=== PATIENT | male | born 1945 | race Caucasian/White ===

== ENCOUNTER 2020-12-30 09:35 | Outpatient (REF) | payer MEDICARE, SELFPAY ==
[2020-12-30 12:21] LABS: VALPROIC ACID 25.1 ug/mL (50-100)
[2020-12-30 12:29] LABS: TSH 0.04 uIU/mL (0.36-3.74)
== END 2020-12-30 09:36 | disposition home or self-care (01) ==
LOC: LBN 09:35
PROVIDERS: PCP Family Medicine; Visit Provider Family Medicine
DX: E03.9 Hypothyroidism, unspecified (principal); Z51.81 Encounter for therapeutic drug level monitoring
CPT/HCPCS: 80164; 84443

== ENCOUNTER 2022-10-27 15:17 | Inpatient (IN) | payer MEDICARE, SELFPAY ==
[2022-10-27] VITALS (45 sets, daily range): BP systolic 116–161; BP diastolic 64–99; PULSE 94–122; RESP 2–37; TEMP 36.6; O2SAT 88–95
--- NOTE | 2022-10-27 15:00 | RT.EKG_ITS ---
APPROVED REPORT Exam: Resting ECG Reason for Exam: stroke Patient Location: E HR:110 bpm ECG Measurements Heart Rate 110 AXIS GA 147 P 38 QRSd 109 QRS 24 QT 358 T -13 QTc 484 Conclusion Sinus tachycardia...rate> [address]-T changes
--- NOTE | 2022-10-27 15:11 | W.ED.GENAD ---
Discharge Plan Disposition Patient Disposition: Admit to [facility] Condition: Fair Discharge Details Clinical Impression: Acute right-sided weakness Primary Care Provider: Go Camacho ED Provider: Layton Westfall Medical Decision Making Patient presenting to ED with right sided weakness that apparently started yesterday and involved his leg with acute worsening approximately 1 hour prior to EMS activation with involvement of upper extremity as well. He has previous CVA but family does not know his medications. We did review all of the common anticoagulants and it does not sound like he is anticoagulated. Does apparently take an aspirin a day but not clear whether he took it today. Family reporting some increased trouble swallowing and a cough. He is awake and alert. He follows commands. He answers yes/no questions. He is mildly tachycardic otherwise good vitals. Given symptoms appear to have started yesterday though worse today I do not think he is a candidate for systemic tPA. Will obtain CT head and CTA head and neck to look for large vessel occlusion. Chest x-ray, EKG, laboratory studies, urine ordered. Patient remains unchanged. CT head without bleed. CTA head and neck without LVO. Able to speak with daughter who reports that she definitely noticed changes yesterday which progressed today. Patient not a candidate for any type of systemic thrombolysis due to timing. Laboratory studies with mild leukocytosis and mild anemia. Magnesium is low and will be replaced. Creatinine a little high but there is no baseline for comparison here. Urinalysis without evidence of infection. EKG is sinus rhythm without acute ST changes noted. Chest x-ray poor inspiratory effort with increased markings but no definite infiltrate. Does sound like patient has suffered another stroke given his right-sided weakness. Also sounds like he may have some swallowing problems at this point. We will keep him n.p.o. Will give aspirin rectally. Discussed with daughter. Discussed with hospitalist regarding admission. Patient to be full code and is admitted for further evaluation and management of presumed stroke. Lab Data Lab results reviewed: Yes I reviewed the patient's lab results. ECG Data Attestation: I personally reviewed and interpreted this ECG (s) as follows: Prior ECG tracings: not available for review Interpretation: see EKG HPI General Mode of arrival: EMS. Date/Time Provider Initiated Documentation: 10/27/22 16:09. Limitations to Documentation: other (Aphasia). Information obtained by: family and EMS. HPI Narrative: Patient presents to ED by ambulance with onset of right-sided weakness. Patient has previous CVA with residual aphasia and mild right lower extremity weakness. He is new to this area just moving up from [place] to live with family and has only been here for a week. Family not really sure what medications he is on. They noted that yesterday he seemed to be dragging his right leg way more so than usual. Today, 1 hour prior to calling EMS they noted facial droop and right upper extremity weakness. Patient is not really able to speak but can answer yes or no. He seems reliable as he does follow commands. He is not having pain. Family reports some increased cough and difficulty swallowing over the last couple of days. He has had no fever. Review of Systems Narrative: per HPI PFSH All Active Problems (Updated 10/27/22 @ 17:20 by Layton Westfall MD) Acute right-sided weakness (Acute) Medical History (Updated 10/27/22 @ 17:20 by Layton Westfall MD) CVA (cerebral vascular accident) Social History Smoking/Tobacco Use Status: Former Tobacco Use Smoking risk assessment performed?: Yes Do you feel safe at home: Yes Do you feel safe in your relationship?: Yes Exam Narrative Exam Narrative: Const: WDWN elderly male in NAD. HEENT: NC/AT. Normal facial exam. Eyes: PERRL and EOMI Neck: Supple. Trachea midline. Lungs: Normal respiratory effort. Lungs are clear. Cor: RRR with murmur. Good radial pulses. GI: Soft. NT/ND. Neuro: Alert, follows commands. Answers only yes/no. Cranial nerves II - XII grossly intact w mild right facial droop. R sided weakness present; both arm and leg drop but do not hit bed. Sensory in tact. Ext: No C/C. BLE edema present. Skin: Warm and dry.
--- NOTE | 2022-10-27 15:15 | DI.CT_ITS ---
Exam(s) CT BRAIN NECK CTA EXAM: CT BRAIN NECK CTA CLINICAL HISTORY: right side deficits. TECHNIQUE: Imaging Protocol: Axial CT angiography was performed with multi-slice acquisition and mu lti-planar and/or 3D reconstructions. CONTRAST MATERIAL: Intravenous: Omnipaque 350 Contrast volume:structured data in ml COMPARISON: No exams were available for comparison FINDINGS: CTA Neck W: Aortic arch anatomy: The aortic arch anatomy is conventional and there is no significant stenosis at the origin of the great vessels off of the aortic arch. No intimal flap evident. Anterior circulation: There is no significant stenosis at the origin of the common carotid arteries. There is eccentric pa rtially calcified plaque on the medial wall of the mid left common carotid artery. The right common carotid artery is somewhat tortuous but without mural thrombus. At the level of the left carotid bulb there is plaque at and distal to this level within the proximal left ICA in the neck. There is approximately 40 percent stenosis at this level. The left ICA above this level in the neck is patent. At the right carotid bulb there is approximately 10 percent steno sis with 15-20 percent stenosis due to calcified mural plaque in the proximal right ICA in the neck. No critical stenosis on either side. Posterior circulation: The left vertebral artery originates as an independent vessel off the aortic arch. Right vertebral a rtery originates in conventional fashion off of the right subclavian artery. No obvious stenosis at their origins. In the foramen transverse area both vertebral arteries are patent with approximately equal luminal diameters and no evidence of intraluminal thrombus nor dissection. At the skull base b oth vertebral arteries contribute to the formation of the midline basilar artery. CTA Brain W: Anterior circulation: Both internal carotid arteries are patent in the skull base-carotid canals as well as within the cave rnous sinuses. The supraclinoid aspects of the ICAs are patent. Left A1 segment is patent. Right A1 segment appear s stenotic. Both anterior cerebral arteries are patent. Both middle cerebral arteries are patent with no evidence of significant stenosis nor intraluminal th rombus. There also no aneurysms of these vessels. Posterior circulation: The basilar artery ascends in the midline. Distally it gives off patent bilateral superior cerebella r arteries. Above this level the basilar artery terminates as patent left posterior cerebral artery. Right poste rior cerebral artery is fed by posterior communicating artery on the right side of the [id number] is There is no evidence of aneurysm at the tip of the basilar artery. CT BRAIN: There is no evidence of intracranial hemorrhage, mass effect, or shift of midline structures. There are no extra-axial fluid collections. Ventricles are not enlarged or shifted. There are no ring enh ancing lesions in the brain and no abnormal meningeal enhancement. There is abundant bilateral periventricular hypodensity consistent with chronic small vessel disease and there are multiple age indeterminate lacunar infarcts bilaterally, more prominent on the left jacquelyn e. Some of these are older than others. Largest of these on the left side measures approximately 9 x 7 millimeters. IMPRESSION: 1. Some stenotic disease at the carotid bifurcations and proximal internal carotid arteries in the ne ck, left more so than right but appearing to be less than 40 percent stenosis bilaterally. 2. Patent vertebral arteries. 3. Patent intracranial arteries. 4. Bilateral periventricular hypodensity consistent with chronic small vessel disease and there are a lso numerous lacunar infarcts in the periventricular white matter, prominent on the left side. Recom mend follow-up MRI with diffusion imaging. Study 1st read by [facility]. RADIATION DOSE DELIVERED: 2,150.04mGy.cm Total DLP DATA REPOSITORY: All CT scans at this facility are submitted to the National Radiology Data Registry (NRDR) Dose Index Registry (DIR) with the [employer] (ACR). RADIATION OPTIMIZATION: All CT scans at this facility use at least one of these dose optimization te chniques: automated exposure control; mA and/or kV adjustment per patient size (includes targeted exa ms where dose is matched to clinical indication); or iterative reconstruction.
--- NOTE | 2022-10-27 15:15 | DI.RAD_ITS ---
Exam(s) XR CHEST 1V IN DI DEPT EXAM: XR CHEST 1V IN DI DEPT CLINICAL HISTORY: stroke. TECHNIQUE: 2D digital imaging was performed. COMPARISON: No exams were available for comparison FINDINGS: Single AP portable view. Heart size upper normal. Mediastinum not widened. Increased markings are noted throughout both lung webb but there is a suboptimal inspiratory effort here. Recommend additional imaging with nonportable PA and lateral views when clinically possible a nd with better inspiratory effort. IMPRESSION: As above. Recommend additional imaging. DATA REPOSITORY: RADIATION DOSE DELIVERED:
[2022-10-27 15:35] LABS: Abs Immature Grans 0.03 10^3/uL (0.0-0.06); Absolute Eosinophil Count 0.43 10^3/uL (0.0-0.7); Absolute Lymphocyte Count 1.25 10^3/uL (1.2-3.4); Absolute Monocyte Count 0.49 10^3/uL (0.1-0.8); Basophils % 0.2; Eosinophils % 3.5; HCT 40.1 % (40.0-50.0); HGB 12.8 g/dL (13.5-17.5); Immature Grans % 0.2; Lymphocytes % 10.3; MCHC 31.9 % (32.0-36.0); MCV 88 fL (80-95); Neutrophils % 81.8; Platelet Count 229 10^3/uL (130-400); RBC 4.57 10^6/uL (4.36-5.78); RDW 14.5 % (11.8-14.1); RDW-SD 46.2 fL; WBC 12.16 10^3/uL (4.4-10.8)
[2022-10-27 15:42] LABS: Absolute Basophil Count 0.02 10^3/uL (0.0-0.2); Absolute Neutrophil Count 9.95 10^3/uL (1.2-6.7)
[2022-10-27] MEDS: Omnipaque 350 MG/ML 100 ML BTL IJ (15:48)
[2022-10-27] MEDS: Normal Saline - Diluent 50 ML VIAL IJ (15:49)
[2022-10-27 15:51] LABS: ALT 22 U/L (16-63); AST 20 U/L (15-37); Albumin 3.7 g/dL (3.4-5.0); Alkaline Phosphatase 110 U/L (46-116); Anion Gap 9.2 mmol/L (3-11); BUN 16 mg/dL (7-18); Bilirubin, Total 0.5 mg/dL (0.2-1.0); CO2 27.8 mmol/L (21.0-32.0); CREATININE 1.4 mg/dL (0.70-1.30); Calcium 9.2 mg/dL (8.5-10.1); Chloride 102 mmol/L (98-107); Estimated GFR 52.09 (mL/min/1.73m2); Glucose 149 mg/dL (74-106); Magnesium 1.3 mg/dL (1.8-2.4); Potassium 3.2 mmol/L (3.5-5.1); Sodium 139 mmol/L (136-145); Total Protein 8.3 g/dL (6.4-8.2); Troponin I < 50 ng/L (<or=60)
[2022-10-27 15:59] LABS: INR 1.1 (0.9-1.1); Prothrombin Time 10.7 sec (9.3-11.0)
--- NOTE | 2022-10-27 16:04 | DI.VRAD_ITS ---
PROCEDURE INFORMATION: Exam: XR Chest Exam date and time: 10/27/2022 3:47 PM Age: 77 years old Clinical indication: Other: Stroke symptoms TECHNIQUE: Imaging protocol: Radiologic exam of the chest. Views: 1 view. COMPARISON: CT BRAIN NECK CTA 10/27/2022 3:28 PM FINDINGS: Lungs: Mild opacities in the bases may represent atelectasis or pneumonia.. Pleural spaces: Unremarkable. No pleural effusion. No pneumothorax. Heart/Mediastinum: Unremarkable. No cardiomegaly. Bones/joints: Unremarkable. IMPRESSION: Mild opacities in the bases may represent atelectasis or pneumonia.. Dictated and Authenticated by: David Main MD. Ordering:VARGHESE Traylor MD
[2022-10-27] MEDS: MAGNESIUM SULFATE 2 GM/50 ML BAG IVPB ×2 (16:18→20:33)
[2022-10-27] MEDS: Normal Saline 1,000 ML 125 ML IV (16:18)
[2022-10-27 16:20] LABS: Bilirubin Negative (Negative); Blood Trace-intact (Negative); Clarity Clear (Clear); Glucose Negative (Negative); Ketones Negative (Negative); Leukocyte Esterase Negative (Negative); Nitrite Negative (Negative); Specific Gravity 1.015 (1.005-1.025); Urobilinogen 0.2 EU/dL (Up TO 0.2)
[2022-10-27 16:28] LABS: Bacteria Rare HPF (Negative); Crystals Negative HPF (Negative); Epithelial Cells Rare HPF (Negative); Mucus Moderate (Negative)
[2022-10-27 16:29] LABS: C & S Indicated? No
--- NOTE | 2022-10-27 16:45 | DI.VRAD_ITS ---
PROCEDURE INFORMATION: Exam: CT Head Without Contrast Exam date and time: 10/27/2022 3:28 PM Age: 77 years old Clinical indication: Stroke symptoms TECHNIQUE: Imaging protocol: Computed tomography of the head without contrast. COMPARISON: No relevant prior studies available. FINDINGS: Brain: There is no acute intracranial hemorrhage, mass effect or midline shift. No large acute territorial infarct identified. There are patchy regions of hypodensity in the periventricular and subcortical white matter, likely on the basis of chronic microvascular ischemic disease. There are small hypodensities in the left basal ganglia and left thalamus, suggestive of remote lacunar infarcts. Cerebral ventricles: The ventricles and sulci are prominent in size, which is at least in part due to global cerebral volume loss. Paranasal sinuses: There is mucosal thickening in the left ethmoid and left maxillary sinuses. Mastoid air cells: Visualized mastoid air cells are well aerated. Bones/joints: No acute fracture. Soft tissues: Unremarkable. IMPRESSION: 1. No acute intracranial hemorrhage, mass effect or midline shift. 2. Evidence of old infarcts. PROCEDURE INFORMATION: Exam: CTA Head With Contrast, Arteriography Exam date and time: 10/27/2022 3:28 PM Age: 77 years old Clinical indication: Stroke symptoms TECHNIQUE: Imaging protocol: Computed tomographic angiography of the head with contrast. Exam focused on the arteries. 3D rendering (Not supervised by radiologist): MIP and/or 3D reconstructed images were created by the technologist. Radiation optimization: All CT scans at this facility use at least one of these dose optimization techniques: automated exposure control; mA and/or kV adjustment per patient size (includes targeted exams where dose is matched to clinical indication); or iterative reconstruction. Contrast material: OMNIPAQUE 350; Contrast volume: 85 ml; Contrast route: INTRAVENOUS (IV); COMPARISON: No relevant prior studies available. FINDINGS: ANTERIOR CIRCULATION: Right internal carotid artery: The right internal carotid artery shows no evidence of occlusion or significant stenosis. No aneurysm. Right middle cerebral artery: No occlusion or significant stenosis in the right MCA. No aneurysm. Right anterior cerebral artery: No occlusion or significant stenosis in the right MICHELLE. No aneurysm. Left internal carotid artery: There is a persistent origin of the right [employer].The left internal carotid artery shows no evidence of occlusion or significant stenosis. No aneurysm. Left middle cerebral artery: No occlusion or significant stenosis. No aneurysm. Left anterior cerebral artery: No occlusion or significant stenosis in the left MICHELLE. No aneurysm. POSTERIOR CIRCULATION: Right vertebral artery: No occlusion or significant stenosis in the right vertebral artery. No aneurysm. Left vertebral artery: No occlusion or significant stenosis in the left vertebral artery. No aneurysm. Basilar artery: The basilar artery shows no evidence of occlusion or significant stenosis. No aneurysm. Right posterior cerebral artery: No occlusion or significant stenosis in the right [employer]ER. No aneurysm. Left posterior cerebral artery: No occlusion or significant stenosis in the left [employer]ER. No aneurysm. IMPRESSION: No large vessel occlusion or significant stenosis. PROCEDURE INFORMATION: Exam: CTA Neck With Contrast Exam date and time: 10/27/2022 3:28 PM Age: 77 years old Clinical indication: Stroke symptoms TECHNIQUE: Imaging protocol: Computed tomographic angiography of the neck with contrast. 3D rendering (Not supervised by radiologist): MIP and/or 3D reconstructed images were created by the technologist. Radiation optimization: All CT scans at this facility use at least one of these dose optimization techniques: automated exposure control; mA and/or kV adjustment per patient size (includes targeted exams where dose is matched to clinical indication); or iterative reconstruction. Contrast material: OMNIPAQUE 350; Contrast volume: 85 ml; Contrast route: INTRAVENOUS (IV); COMPARISON: No relevant prior studies available. FINDINGS: Limitations: Motion artifact does moderately limit the sensitivity of this examination. Right common carotid artery: No significant stenosis in the right CCA. No dissection or occlusion. Right internal carotid artery: No stenosis of the extracranial segment. No dissection or occlusion. Right external carotid artery: No occlusion or stenosis of the origin in the right ECA. Left common carotid artery: No significant stenosis in the left CCA. No dissection or occlusion. Left internal carotid artery: No stenosis of the extracranial segment. No dissection or occlusion. Left external carotid artery: No occlusion or stenosis of the origin in the left ECA. Right vertebral artery: No stenosis. No dissection or occlusion. Left vertebral artery: Left vertebral artery originates from the aortic arch. No significant stenosis in the left vertebral artery. No dissection or occlusion. Soft tissues: Normal. No significant soft tissue swelling. Bones/joints: No acute fracture. Lungs: Mild centrilobular emphysema noted in the lung apices. IMPRESSION: 1. No arterial occlusion or dissection. 2. Slightly limited examination of the carotid bifurcations due to motion, however no evidence of hemodynamically significant stenosis. REFERENCES: NASCET CRITERIA. The degree of stenosis in the cervical segment of the internal carotid artery is based on NASCET criteria. Normal is no stenosis. Mild is less than 50% stenosis. Moderate is 50-69% stenosis. Severe is 70% to 99% stenosis. Total occlusion is no detectable patent lumen. Dictated and Authenticated by: Peri Ritter MD. Ordering:VARGHESE Traylor MD
[2022-10-27] MEDS: Aspirin 300 MG SUPP PR (17:21)
--- NOTE | 2022-10-27 17:22 | HPE_ITS ---
Date of service: 10/27/22 Time of Service: 17:22 Assessment and Plan Assessment and plan (1) Acute right-sided weakness: Status: Acute Assessment and plan: ? acute CVA. Could also be worsening of chronic neuro deficits due to electrolyte issues (low magnesium and potassium). Will monitor on tele with neurochecks, obtain echo, MRI brain, neurology consult. PT, OT consults. Permissive hypotension. Check A1C, TSH, B12, lipids. Treat with rectal aspirin for now. (2) Hypokalemia: Status: Acute Assessment and plan: Replete, recheck in am. Replete magnesium. (3) Hypomagnesemia: Status: Acute Assessment and plan: Replete, recheck in am. (4) Dysphagia: Status: Acute Assessment and plan: Will trial pureed/mildly thickened diet. C/s speech therapy. I think he does have aspiration pneumonia clinically, so will start zosyn and scheduled and prn nebs. (5) DVT prophylaxis: Status: Acute Assessment and plan: SC enoxaparin (6) Discharge planning issues: Status: Acute Assessment and plan: Full code Admit to medical surgical floor History of Present Illness History of Present Illness Chief Complaint: Worsened right-sided weakness Narrative: Mr Cam is a 77 year old male with poorly known PMHx other than that he had a stroke with residual aphasia and R leg weakness (able to answer yes/no at baseline) who presented to [facility] after being noted to be weaker on the R and not to be using his RUE yesterday by his daughter, who felt he was worse today. Additionally, it was felt he had more trouble swallowing since yesterday. In the ED, he was indeed weaker on the R. His CT/CTA head/neck were negative for an acute CVA/occlusion. Admission to the hospitalist service was requested. On the interview with the patient, he states he has had worsening R-sided weakness and shortness of breath for x 1 month. He denies pain anywhere. The interview is very limited due to the patient's aphasia. Review of Systems All systems reviewed & are unremarkable except as noted in HPI and below PFSH All Active Problems (Updated 10/27/22 @ 18:46 by Kelsi Mondragon MD) Discharge planning issues (Acute) DVT prophylaxis (Acute) Dysphagia (Acute) Hypomagnesemia (Acute) Hypokalemia (Acute) Acute right-sided weakness (Acute) Medical History (Updated 10/27/22 @ 18:46 by Kelsi Mondragon MD) CVA (cerebral vascular accident) Surgical History (Updated 10/27/22 @ 18:46 by Kelsi Mondragon MD) Surgical history unknown Family History (Updated 10/27/22 @ 18:46 by Kelsi Mondragon MD) Other Family history unobtainable due to patient's condition Social History (Updated 10/27/22 @ 18:47 by Kelsi Mondragon MD) Smoking/Tobacco Use Status: Former Tobacco Use Smoking risk assessment performed?: Yes Alcohol Intake: never Drug use: Never Do you feel safe at home: Yes Do you feel safe in your relationship?: Yes Meds Allergies and Home Medications Allergies Allergy/AdvReac Type Severity Reaction Status Date / Time No Known Allergies Allergy Unverified 10/27/22 18:06 Exam Narrative Exam Narrative: General: Pleasant elderly male who is sitting up in a stretcher, A&Ox2 (knows he is in the hospital, thinks he is in the ICU while he is still in the ER), audible wheezing heard. Neurological: A&Ox2, EOMI, visible R facial droop disappears when he smiles, 5/5 strength LUE/LLE, though difficulty with understanding commands, RUE/RLE 4/5 strength (requires a lot of coaching to elevate his RUE which he appears to not use at all unless specifically being asked to use it), sensation seems to be preserved. Speech nonfluent, mostly 1 word answers - yes, no, ICU. Does laugh at a joke appropriately. Seems to be understanding my questions, but difficulty f ollowing more than 1-step commands and commands pertaining to the R side of the body. Psychiatric: Difficult to evaluate given aphasia Skin: petechial rash L ankle, otherwise no bruises/rashes HEENT: Atraumatic, normocephalic, EOMI, dry MM, clear oropharynx, no submandibular or cervical lymphadenopathy, no goiter or JVD Cardiovascular: RRR, no m/r/g Lungs: wheezing on expiration B, crackles at L base Gastrointestinal: soft, nontender, nondistended Genitourinary: deferred Extremities: no edema BLEs, 1+ pedal pulses B, no lesions on B feet Results Imaging Additional studies: CXR: Heart size upper normal.? Mediastinum not widened. Increased markings are noted throughout both lung webb but there is a suboptimal inspiratory effort here.? Recommend additional imaging with nonpo rtable PA and lateral views when clinically possible and with better inspiratory effort. CT head: 1. No acute intracranial hemorrhage, mass effect or midline shift. 2. Evidence of old infarcts. CTA head: No large vessel occlusion or significant stenosis. CTA neck: 1. No arterial occlusion or dissection. 2. Slightly limited examination of the carotid bifurcations due to motion, however no evidence of hemodynamically significant stenosis. EKG: ST, HR 110, no acut eischemia, nonspecific ST-T changes Labs 10/27/22 15:25 10/27/22 15:25 Labs: Laboratory Results - last 24 hr 10/27/22 10/27/22 10/27/22 15:25 15:25 15:25 WBC 12.16 H RBC 4.57 Hgb 12.8 L Hct 40.1 MCV 88 MCH 28.0 MCHC 31.9 L RDW 14.5 H Plt Count 229 MPV 10.0 Immature Gran % 0.2 Neutrophils % 81.8 Lymphocytes % 10.3 Monocytes % 4.0 Eosinophils % 3.5 Basophils % 0.2 Nucleated RBC % 0.0 Absolute Neutrophils 9.95 H Absolute Lymphocytes 1.25 Absolute Monocytes 0.49 Absolute Eosinophils 0.43 Absolute Basophils 0.02 PT 10.7 INR 1.1 Sodium 139 Potassium 3.2 L Chloride 102 Carbon Dioxide 27.8 Anion Gap 9.2 BUN 16 Creatinine 1.4 H Est GFR (CKD-EPI 2020) 52.09 Glucose 149 H Calcium 9.2 Magnesium 1.3 L Total Bilirubin 0.5 AST 20 ALT 22 Alkaline Phosphatase 110 Troponin I < 50 Total Protein 8.3 H Albumin 3.7 Urine Color Urine Clarity Urine pH Ur Specific [place] Urine Protein Urine Ketones Urine Blood Urine Nitrite Urine Bilirubin Urine Urobilinogen Ur Leukocyte Esterase Urine RBC Urine WBC Ur Epithelial Cells Urine Crystals Urine Bacteria Urine Mucus Ur Culture Indicated? Urine Glucose 10/27/22 16:00 WBC RBC Hgb Hct MCV MCH MCHC RDW Plt Count MPV Immature Gran % Neutrophils % Lymphocytes % Monocytes % Eosinophils % Basophils % Nucleated RBC % Absolute Neutrophils Absolute Lymphocytes Absolute Monocytes Absolute Eosinophils Absolute Basophils PT INR Sodium Potassium Chloride Carbon Dioxide Anion Gap BUN Creatinine Est GFR (CKD-EPI 2020) Glucose Calcium Magnesium Total Bilirubin AST ALT Alkaline Phosphatase Troponin I Total Protein Albumin Urine Color Yellow Urine Clarity Clear Urine pH 7.0 Ur Specific [place] 1.015 Urine Protein Negative Urine Ketones Negative Urine Blood Trace-intact H Urine Nitrite Negative Urine Bilirubin Negative Urine Urobilinogen 0.2 Ur Leukocyte Esterase Negative Urine RBC 3-5 H Urine WBC 3-5 Ur Epithelial Cells Rare Urine Crystals Negative Urine Bacteria Rare Urine Mucus Moderate Ur Culture Indicated? No Urine Glucose Negative Last Vital Signs Temp 36.6 C 10/27/22 15:12 Pulse 101 H 10/27/22 17:01 Resp 22 10/27/22 17:01 BP 150/83 H 10/27/22 17:01 Pulse Ox 94 10/27/22 15:12 Time Spent Time spent with Patient: 55-74 minutes Time was spent: preparing to see the patient(eg.review tests), obtaining and/or reviewing separately otained hiistory, ordering medications,tests, procedures, referring, communicating with other health senior care specialist, indepentently in terpreting results, counseling the patient and care coordination
[2022-10-27 17:37] LABS: Source Nasal/Nares
[2022-10-27 17:43] LABS: Lab Add On Test DONE
[2022-10-27 18:08] LABS: TSH (W/Ref FT4) 5.64 uIU/mL (0.36-3.74)
[2022-10-27 18:09] LABS: COVID-19 PCR Negative (Negative)
[2022-10-27 18:21] LABS: Procalcitonin 0.1 ng/mL
[2022-10-27 18:25] LABS: FREE T4 0.93 ng/dL (0.76-1.46)
[2022-10-27] MEDS: Albuterol/Ipratropium 3 ML UPD VIAL (19:43)
[2022-10-27] MEDS: POTASSIUM CHLORIDE 20 MEQ/100 ML BAG 50 MEQ IVPB ×2 (20:32→22:36)
[2022-10-27] MEDS: Enoxaparin 40 MG/0.4 ML SYR SC (21:07)
[2022-10-27] MEDS: PIPERACILLIN/TAZO 3.375 GM in Normal Saline 50 ML IVPB (22:55)
[2022-10-28] VITALS (39 sets, daily range): BP systolic 105–165; BP diastolic 55–98; PULSE 64–105; RESP 2–30; TEMP 36.4–37.1; O2SAT 88–97
[2022-10-28] MEDS: PIPERACILLIN/TAZO 3.375 GM in Normal Saline 50 ML IVPB ×4 (02:38→21:50)
[2022-10-28 05:40] LABS: Abs Immature Grans 0.02 10^3/uL (0.0-0.06); Absolute Basophil Count 0.03 10^3/uL (0.0-0.2); Absolute Eosinophil Count 0.58 10^3/uL (0.0-0.7); Absolute Lymphocyte Count 1.27 10^3/uL (1.2-3.4); Absolute Monocyte Count 0.55 10^3/uL (0.1-0.8); Basophils % 0.3; Eosinophils % 5.9; HCT 36.4 % (40.0-50.0); HGB 12.2 g/dL (13.5-17.5); Immature Grans % 0.2; Lymphocytes % 12.9; MCHC 33.5 % (32.0-36.0); MCV 87 fL (80-95); MPV 10.2 fL (8.0-11.0); Monocytes % 5.6; Neutrophils % 75.1; Platelet Count 208 10^3/uL (130-400); RDW 14.5 % (11.8-14.1); RDW-SD 46.3 fL; WBC 9.85 10^3/uL (4.4-10.8)
[2022-10-28 05:56] LABS: Anion Gap 9.5 mmol/L (3-11); BUN 17 mg/dL (7-18); CO2 25.5 mmol/L (21.0-32.0); CREATININE 1.3 mg/dL (0.70-1.30); Calcium 9.2 mg/dL (8.5-10.1); Chloride 106 mmol/L (98-107); Estimated GFR 56.93 (mL/min/1.73m2); Glucose 123 mg/dL (74-106); Magnesium 2.2 mg/dL (1.8-2.4); Potassium 3.8 mmol/L (3.5-5.1); Sodium 141 mmol/L (136-145)
[2022-10-28 05:59] LABS: Hemoglobin A1C 5.8 % (<5.7)
--- NOTE | 2022-10-28 06:48 | NUR.NOTE ---
Nursing Note: Patient noted to have scratches all over his back, bilateral lower extremities from scratches. Per nursing report received @ 2330 on 10/27/2022 his family members reported that they trimmed his finger nails due to scratching. Family is not aware of patients medications. Patient frequently pulling at scrotal sack, verbalizes itches
[2022-10-28] MEDS: Aspirin 300 MG SUPP PR (07:37)
[2022-10-28] MEDS: Albuterol/Ipratropium 3 ML UPD VIAL UPD ×4 (07:53→21:51)
[2022-10-28 08:27] LABS: Calculated LDL 90 mg/dL (<100); Cholesterol 176 mg/dL (<200); HDL Cholesterol 72 mg/dL (40-60); Triglyceride 71 mg/dL (<150); Vitamin B12 405 pg/mL (193-986)
--- NOTE | 2022-10-28 09:02 | INITIAL_ITS ---
- If Service Date Differs Date of service: 10/28/22 Time of Service: 09:02 Care Management Initial Assess REASON FOR HOSPITALIZATION:: ?acute CVA with right sided weakness PAST MEDICAL HISTORY/PAST SURGICAL HISTORY:: All Active Problems (Updated 10/27/22 @ 18:46 by Kelsi Mondragon MD). Discharge planning issues (Acute). DVT prophylaxis (Acute). Dysphagia (Acute). Hypomagnesemia (Acute). Hypokalemia (Acute). Acute right-sided weakness (Acute). Medical History (Updated 10/27/22 @ 18:46 by Kelsi Mondragon MD). CVA (cerebral vascular accident). Surgical History (Updated 10/27/22 @ 18:46 by Kelsi Mondragon MD). Surgical history unknown. Family History (Updated 10/27/22 @ 18:46 by Kelsi Mondragon MD). Other. Family history unobtainable due to patient's condition PREVIOUS FUNCTIONAL STATUS/SOCIAL/FAMILY SUPPORTS:: Layton lives in [place], [place] in a mobile home with his daughter Sujatha Jeffers. He recently moved from [place], [place] where he was living with his son Víctor. Jimi suffered a stroke at some time in the past which has left him with residual right sided weakness. He requires assistance with all ADLs, however he can feed himself. Per daughter, Jimi was able to walk short distances a couple of weeks ago and was able to use his right arm more. CURRENT FUNCTIONAL STATUS:: Jimi was sitting up in bed in the ICU when CM met with him. He was alert and able to engage in conversation. Jimi has some difficulties with speech but is able to say yes and no and respond with one or 2 word answers to questions. When asked if he would be willing to go to a SNF for short term rehab if recommended, he indicated that he would. MARCIANO also had a lengthy conversation with his daughter Sujatha Jeffers. Jimi came to live with her 5 days ago from her brother's home in [place]. He called her and stated that he could n o longer care for Jimi. She indicated that her brother has a substance use issue with alcohol and that he was not taking good care of Jimi. She does not have a lot of details about Jimi's medical history but he does have a PCP in [place] that has been involved in his care. CM will attempt to get records from the office on Saturday. ADVANCE DIRECTIVES:: none on file Has patient been provided with info about the portal/API?: Yes Did the patient sign up for the portal?: No CODE STATUS:: Full Code INSURANCE COVERAGE / FINANCIAL ISSUES:: Medicare CURRENT HOME/COMMUNITY SERVICES/EQUIPMENT:: wheelchair, walker PRIMARY CARE PHYSICIAN:: oG Camacho MD - [facility] PATIENT/FAMILY EDUCATION NEEDS:: Review of discharge instructions, limitations, activity, follow up plan, Ask Me Three TRANSPORTATION:: via private vehicle with family PLAN:: Anticipate Layton will be discharged home, possibly with new home health services. he will follow up with community providers and plan of care and transport with his daughter.
--- NOTE | 2022-10-28 10:16 | IN_ITS ---
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 Additionally, it was felt he had more trouble swallowing since yesterday. [] Obtaining history is limited as Layton has aphasia and is difficult to understand. He does seem to be able to express more with Pt than he has thus far but difficult to understand fully what his baseline is. PMHX: []All Active Problems (Updated 10/27/22 @ 18:46 by Kelsi Mondragon MD).? Discharge planning issues (Acute).? DVT prophylaxis (Acute).? Dysphagia (Acute).? Hypomagnesemia (Acute).? Hypokalemia (Acute).? Acute right-sided weakness (Acute).? Medical History (Updated 10/27/22 @ 18:46 by Kelsi Mondragon MD).? CVA (cerebral vascular accident).? Surgical History (Updated 10/27/22 @ 18:46 by Kelsi Mondragon MD).? Surgical history unknown.? Family History (Updated 10/27/22 @ 18:46 by Kelsi Mondragon MD).? Other.? Family history unobtainable due to patient's condition Social History/Home Situation: Lives in [place], states his daughter helps with bathing, he states he does limited walking with a cane however it was reported thru a ICU nurse per his daughter that he really doesn't walk. I am unable to asertain his baseline level, although he does state that he is able to stand and get into his bathroom at home, likely with use of a cane. Current Functional Limitations: Unclear history of baseline status as outlined above Equipment Owned/DME: Unclear, ? cane not sure if gladys or not Subjective: Primarily answers yes or no, is able to express that he is retired, that his daughter assists with bathing, he states that he is able to ambulate to bathroom at home utilizing a cane. He states that he does not have any pain today. Objective: General Observation: Patient is supine in ICU bed and willing to try sitting and standing when asked and follows directions for MMT and ROM. Per Rn seeing how he does on RA Mental Status: Patient has dysarthria/aphasia thus difficult to assess orientation it does appear that he is trying to answer questions I have been told that he answers just yes or no however he has been able to give me some information I am unable to confirm the accuracy of this information. He is alert and cooperative and able to follow basic directions Pain: 0/10 Vital Signs: Pretreatment heart rate 74 O2 92 RR 24 BP 114/98 During treatment O2 elevated to 96, and then dropped to 86 however once able to rest returned to 92 all at RA posttreatment HR 68 O2 92 RR 19 ROM: Right Upper Extremity: Increased tone, very limited AROM of shoulder PROM to 60 degrees elevation, -20 elbow extension, limited wrist extension and finger extension he does have increased energy when working hard during transfers although we are able to open his hand passively he does tend to keep it flexed. Left Upper Extremity: W FL Right Lower Extremity: In supine has 0 degrees extension but in sitting unable to fully straighten right LE -30. Hip flexion 90, hip extension -10 Left Lower Extremity: WFL Strength: Right Upper Extremity: Difficulty with volitional right UE resistance with verbal cueing able to provide fair resistance elbow extension elbow flexion sh oulder flexion at 30 degrees in shoulder abduction at 30 degrees. Left Upper Extremity: WFL Right Lower Extremity: To MMT isometric positioning hip flexion 3/5, extension 3/5, hamstring curl 3/5, knee extension 3/5 however unable to extend fully in long arc quad positioning question ability to communicate and ability to activate right LE volitionally. DF 1/5 Left Lower Extremity: WFL Sensation: Unable to report Bed Mobility/Transfers: Supine to sit min assist sit to supine mod assist with right LE Sit to stand bed to RW min assist, VC for hand placement Stand to sit RW to bed min assist Repositioning in bed max assist but patient attempting to help with left LE, did not assess rolling left and right Gait: Not assessed Balance: Static Sitting: Good Dynamic Sitting: Fair, supports with left UE Static Standing: At RW good utilizing primarily left UE and able to stand for approximately 4 minutes Dynamic Standing: Poor and not stand without assist assess Special Tests: Mobility Limitations Standardized Measure [facility] AM-PAC 6 clicks Basic Mobility Inpatient Short Form: Raw Score: 10 standardized Score: 32.29 CMS Score: 76.75 Informed Consent/Education: Patient instructed in purpose of PT consult and plan of care. Assessment: Patient is a 77year old male referred to physical therapy services with the diagnosis of suspect acute CVA with right-sided weakness. Patient presents with clinical signs and symptoms consistent with right upper extremity greater than right LE with increased tone consistent with CVA, as demonstrated by the following impairment level findings: Decreased ROM right UE, right LE, increased tone flexion synergy right UE, weakness right UE and LE, dysphagia/aphasia. Impairments are contributing to the following functional [place] itations: 76.75AMPAC score. Poor bed mobility Limited with transfers Limited ambulation Unable to perform ADLs Patient is assessed as a Moderate change complexity based on the following: Goals: Goals X1 week 1. Supine-Sit independent 2. Sit-Supine independent 3. Sit-Stand close guard 4. Stand-Sit close guard 5. Bed-Chair min assist 6. Chair-Bed min assist 7. Gait with RW to be assessed 8. Stairs n/a 9. Independent with home exercise program n/a 10. Balance able to stand without assist patient also to receive OT and speech evaluation. DC Plan of Care/Treatment Plan: 1-2x/day, 7 days/week x 1 week. Plan of care has been reviewed with the ROPE LAYING MACHINE OPERATOR providing the service under Physical Therapy direction. Initiate Physical Therapy intervention for strengthening, bed mobility, transfers, gait, stairs, balance training, use of assistive device. DISCHARGE RECOMMENDATIONS: [] Home with no services [] [] Home with services [specify] [] Home with outpatient PT [] [x] SNF for continued rehabilitation [] Medical Services Manager Care [] [] SNF versus LTC based on ability to participate and progress [] TREATMENT CODE/TIME: [id number] 25'
--- NOTE | 2022-10-28 10:48 | RESPIRATORY ---
Rt spoke with family and nursing concerning if patient uses home oxygen, currently he does not and RT will attempt to wean to RA throughout the day.
--- NOTE | 2022-10-28 13:15 | TELEP.MEDR_ITS ---
Date of service: 10/28/22 Time of Service: 13:15 Telepharmacy Home Med Rec Allergies Allergies: No Known Allergies Allergy (Unverified 10/27/22 18:06) Interview Person Interviewed: daughter = SONJA Quality Quality of Interview/Accuracy of Medication List: Good Sources Sources used to compile medication list: [employer] Medication List, Patient List and [employer] Changes made to Home Medication List: ADDITIONS: none DELETIONS: none CHANGES: none Additional Notes Additional Notes: Clarified with daughter that this patient takes venlafaxine 200mg ( [id number] tablets) in the meorning and 150mg ( 1 and one half tablet ) in the evening. Recommended Changes Recommended Changes(reason for recommendation): none Attestation: The home medication list is now updated to the best of my knowledge and is ready to be reconciled by the provider. Please contact the TelePharmacy Medication Reconciliation Pharmacist at for any questions.
--- NOTE | 2022-10-28 13:18 | TELEP.MEDREC ---
Date of service: 10/28/22 Time of Service: 13:20 Telepharmacy Home Med Rec Allergies Allergies: No Known Allergies Allergy (Unverified 10/27/22 18:06) Recommended Changes Attestation: The home medication list is now updated to the best of my knowledge and is ready to be reconciled by the provider. Please contact the TelePharmacy Medication Reconciliation Pharmacist at for any questions.
--- NOTE | 2022-10-28 13:27 | PGE_ITS ---
Date of Service Date of service: 10/28/22 Time of Service: 10:00 Assessment and Plan Assessment and plan (1) Acute right-sided weakness: Status: Acute Assessment and plan: ? acute CVA. Could also be worsening of chronic neuro deficits due to low magnesium and K. Continue to monitor on tele with neurochecks; Await echo, MRI brain, neurology consult. PT, OT, speech consults. Resume antihypertensives. TSH 5.64, but FT4 nml, B12 405 - replete. A1C 5.8 - has prediabetes. Continue asa, high dose atorvastatin. (2) Aspiration pneumonia: Status: Acute Assessment and plan: with hypoxia. Continue zosyn. Await speech therapy eval. (3) Hypokalemia: Status: Resolved Assessment and plan: Recheck in am. (4) Hypomagnesemia: Status: Acute Assessment and plan: Replete, recheck in am. (5) Dysphagia: Status: Acute Assessment and plan: Trialing pureed/mildly thickened diet. Await eval by speech therapy. (6) DVT prophylaxis: Status: Acute Assessment and plan: SC enoxaparin (7) Discharge planning issues: Status: Acute Assessment and plan: Full code Continues to require hospitalization. PT c/s. Consider palliative consult. May require SNF. Subjective Subjective Interval history since last seen: Mr Cam is doing better. He was a little agitated, per his daughter, but not unsafe. He said yes to questions re shortness of breath, denied dizziness, chest pain, nausea. He is better able to move his RUE. Nursing expresses concerns about aspiration. Exam Narrative Exam Narrative: General: Pleasant elderly male who is sitting up in bed, A&Ox1, on 2L of O2 by OK Neurological: A&Ox1, EOMI, visible R facial droop disappears when he smiles, 5/5 strength LUE/LLE, is see spontaneously moving his RUE against gravity, aphasic, not always understanding me, providing yes/no answers HEENT: EOMI, MMM Cardiovascular: RRR, no m/r/g Lungs: Improved wheezing on expiration B Gastrointestinal: soft, nontender, nondistended Extremities: no edema BLEs, 1+ pedal pulses B Objective Last Vital Signs Temp 36.4 C L 10/28/22 04:41 Pulse 80 10/28/22 12:07 Resp 16 10/28/22 12:07 BP 137/79 10/28/22 08:00 Pulse Ox 94 10/28/22 12:07 Laboratory Results - last 24 hr 10/27/22 10/27/22 10/27/22 15:25 15:25 15:25 WBC 12.16 H RBC 4.57 Hgb 12.8 L Hct 40.1 MCV 88 MCH 28.0 MCHC 31.9 L RDW 14.5 H Plt Count 229 MPV 10.0 Immature Gran % 0.2 Neutrophils % 81.8 Lymphocytes % 10.3 Monocytes % 4.0 Eosinophils % 3.5 Basophils % 0.2 Nucleated RBC % 0.0 Absolute Neutrophils 9.95 H Absolute Lymphocytes 1.25 Absolute Monocytes 0.49 Absolute Eosinophils 0.43 Absolute Basophils 0.02 PT 10.7 INR 1.1 Sodium 139 Potassium 3.2 L Chloride 102 Carbon Dioxide 27.8 Anion Gap 9.2 BUN 16 Creatinine 1.4 H Est GFR (CKD-EPI 2020) 52.09 Glucose 149 H Hemoglobin A1c Calcium 9.2 Magnesium 1.3 L Total Bilirubin 0.5 AST 20 ALT 22 Alkaline Phosphatase 110 Troponin I < 50 Total Protein 8.3 H Albumin 3.7 Triglycerides Total Cholesterol LDL Cholesterol, Calc HDL Cholesterol Vitamin B12 Procalcitonin TSH Free T4 Urine Color Urine Clarity Urine pH Ur Specific [place] Urine Protein Urine Ketones Urine Blood Urine Nitrite Urine Bilirubin Urine Urobilinogen Ur Leukocyte Esterase Urine RBC Urine WBC Ur Epithelial Cells Urine Crystals Urine Bacteria Urine Mucus Ur Culture Indicated? Urine Glucose COVID-19 Source SARS-CoV-2 (PCR) Add-On Test Request 10/27/22 10/27/22 10/27/22 15:25 15:25 15:25 WBC RBC Hgb Hct MCV MCH MCHC RDW Plt Count MPV Immature Gran % Neutrophils % Lymphocytes % Monocytes % Eosinophils % Basophils % Nucleated RBC % Absolute Neutrophils Absolute Lymphocytes Absolute Monocytes Absolute Eosinophils Absolute Basophils PT INR Sodium Potassium Chloride Carbon Dioxide Anion Gap BUN Creatinine Est GFR (CKD-EPI 2020) Glucose Hemoglobin A1c Calcium Magnesium Total Bilirubin AST ALT Alkaline Phosphatase Troponin I Total Protein Albumin Triglycerides Total Cholesterol LDL Cholesterol, Calc HDL Cholesterol Vitamin B12 Procalcitonin 0.1 TSH 5.64 H Free T4 0.93 Urine Color Urine Clarity Urine pH Ur Specific [place] Urine Protein Urine Ketones Urine Blood Urine Nitrite Urine Bilirubin Urine Urobilinogen Ur Leukocyte Esterase Urine RBC Urine WBC Ur Epithelial Cells Urine Crystals Urine Bacteria Urine Mucus Ur Culture Indicated? Urine Glucose COVID-19 Source SARS-CoV-2 (PCR) Add-On Test Request DONE 10/27/22 10/27/22 10/28/22 16:00 17:25 05:30 WBC RBC Hgb Hct MCV MCH MCHC RDW Plt Count MPV Immature Gran % Neutrophils % Lymphocytes % Monocytes % Eosinophils % Basophils % Nucleated RBC % Absolute Neutrophils Absolute Lymphocytes Absolute Monocytes Absolute Eosinophils Absolute Basophils PT INR Sodium 141 Potassium 3.8 Chloride 106 Carbon Dioxide 25.5 Anion Gap 9.5 BUN 17 Creatinine 1.3 Est GFR (CKD-EPI 2020) 56.93 Glucose 123 H Hemoglobin A1c Calcium 9.2 Magnesium 2.2 Total Bilirubin AST ALT Alkaline Phosphatase Troponin I Total Protein Albumin Triglycerides 71 Total Cholesterol 176 LDL Cholesterol, Calc 90 HDL Cholesterol 72 Vitamin B12 405 Procalcitonin TSH Free T4 Urine Color Yellow Urine Clarity Clear Urine pH 7.0 Ur Specific [place] 1.015 Urine Protein Negative Urine Ketones Negative Urine Blood Trace-intact H Urine Nitrite Negative Urine Bilirubin Negative Urine Urobilinogen 0.2 Ur Leukocyte Esterase Negative Urine RBC 3-5 H Urine WBC 3-5 Ur Epithelial Cells Rare Urine Crystals Negative Urine Bacteria Rare Urine Mucus Moderate Ur Culture Indicated? No Urine Glucose Negative COVID-19 Source Nasal/Nares SARS-CoV-2 (PCR) Negative Add-On Test Request 10/28/22 10/28/22 05:30 05:30 WBC 9.85 RBC 4.20 L Hgb 12.2 L Hct 36.4 L MCV 87 MCH 29.0 MCHC 33.5 RDW 14.5 H Plt Count 208 MPV 10.2 Immature Gran % 0.2 Neutrophils % 75.1 Lymphocytes % 12.9 Monocytes % 5.6 Eosinophils % 5.9 Basophils % 0.3 Nucleated RBC % 0.0 Absolute Neutrophils 7.40 H Absolute Lymphocytes 1.27 Absolute Monocytes 0.55 Absolute Eosinophils 0.58 Absolute Basophils 0.03 PT INR Sodium Potassium Chloride Carbon Dioxide Anion Gap BUN Creatinine Est GFR (CKD-EPI 2020) Glucose Hemoglobin A1c 5.8 H Calcium Magnesium Total Bilirubin AST ALT Alkaline Phosphatase Troponin I Total Protein Albumin Triglycerides Total Cholesterol LDL Cholesterol, Calc HDL Cholesterol Vitamin B12 Procalcitonin TSH Free T4 Urine Color Urine Clarity Urine pH Ur Specific [place] Urine Protein Urine Ketones Urine Blood Urine Nitrite Urine Bilirubin Urine Urobilinogen Ur Leukocyte Esterase Urine RBC Urine WBC Ur Epithelial Cells Urine Crystals Urine Bacteria Urine Mucus Ur Culture Indicated? Urine Glucose COVID-19 Source SARS-CoV-2 (PCR) Add-On Test Request Time Spent with Patient Time Spent with Patient: 35-49 minutes Time was spent: preparing to see the patient(eg.review tests), obtaining and/or reviewing separately otained hiistory, ordering medications,tests, procedures, referring, communicating with other health day care home provider, indepentently interpreting results, counseling the patient and care coordination
[2022-10-28] MEDS: Venlafaxine 50 MG TAB 200 MG PO (13:31)
[2022-10-28] MEDS: Magnesium Oxide 400 MG TAB PO (14:35)
[2022-10-28] MEDS: Atorvastatin 40 MG TAB 80 MG PO (14:36)
[2022-10-28] MEDS: Cyanocobalamin 1000 MCG/ML VIAL IM/SC (14:38)
[2022-10-28] MEDS: Normal Saline Flush 10 ML SYR IVP ×2 (14:58→19:37)
[2022-10-28] MEDS: Enoxaparin 40 MG/0.4 ML SYR SC (21:51)
[2022-10-28] MEDS: QUEtiapine 50 MG TAB 150 MG PO (21:52)
[2022-10-28] MEDS: Magnesium Chloride 64 MG TABCR PO (21:52)
[2022-10-28] MEDS: Venlafaxine 50 MG TAB 150 MG PO (21:58)
[2022-10-29] VITALS (18 sets, daily range): BP systolic 81–138; BP diastolic 48–76; PULSE 72–102; RESP 1–204; TEMP 36.8; O2SAT 87–97
[2022-10-29] MEDS: PIPERACILLIN/TAZO 3.375 GM in Normal Saline 50 ML IVPB ×4 (01:43→20:11)
[2022-10-29 04:55] LABS: HCT 35.2 % (40.0-50.0); HGB 11.6 g/dL (13.5-17.5); MCH 28.9 pg (27.0-33.0); MCV 88 fL (80-95); Neutrophils % 52.2; Platelet Count 215 10^3/uL (130-400); RBC 4.02 10^6/uL (4.36-5.78); RDW 14.6 % (11.8-14.1); RDW-SD 46.8 fL; WBC 6.38 10^3/uL (4.4-10.8)
[2022-10-29 04:56] LABS: Abs Immature Grans 0.02 10^3/uL (0.0-0.06); Absolute Basophil Count 0.05 10^3/uL (0.0-0.2); Absolute Eosinophil Count 0.69 10^3/uL (0.0-0.7); Absolute Lymphocyte Count 1.71 10^3/uL (1.2-3.4); Absolute Monocyte Count 0.58 10^3/uL (0.1-0.8); Absolute Neutrophil Count 3.33 10^3/uL (1.2-6.7); Basophils % 0.8; Eosinophils % 10.8; Immature Grans % 0.3; Lymphocytes % 26.8; Monocytes % 9.1
[2022-10-29 04:57] LABS: Anion Gap 8.6 mmol/L (3-11); BUN 19 mg/dL (7-18); CO2 26.4 mmol/L (21.0-32.0); CREATININE 1.5 mg/dL (0.70-1.30); Calcium 9.1 mg/dL (8.5-10.1); Chloride 105 mmol/L (98-107); Estimated GFR 47.95 (mL/min/1.73m2); Glucose 105 mg/dL (74-106); Magnesium 1.9 mg/dL (1.8-2.4); Potassium 3.4 mmol/L (3.5-5.1); Sodium 140 mmol/L (136-145)
--- NOTE | 2022-10-29 08:00 | DI.US_ITS ---
APPROVED REPORT EXAM: Comprehensive 2D, Doppler, and color-flow Echocardiogram Patient Location: In-Patient Room/Bed: PSR858 Resource Coordinator: Sultana Romero RDCS (AE) Indications: Suspected CVA Echo Enhancing Agent Indication: Rule out Shunt Agent(s) / Amount(s) Used: Agitated Saline 20.0 cc Comments: Contrast study was performed with 2 IV injections of 10ccs of agitated normal saline, at re st and with attempt at cough. Patient was unable to cooperate with maneuvers. Other Information Study Quality: Adequate. Technically limited study due to body habitus, inability to position patient exam done supine bedside. Conclusion Normal left ventricular wall thickness and chamber size. Estimated ejection fraction is 55%. No seg mental wall motion abnormalities were noted Right ventricle is grossly normal in size The atria are normal in size No intracardiac shunt is demonstrated using injection of agitated saline Aortic valve is sclerotic and trileaflet without stenosis or regurgitation Mitral annular calcification, trace mitral regurgitation Wall motion Left Ventricle The left ventricle is normal size. The overall left ventricular systolic function appears normal. The re is normal left ventricular wall thickness. Regional wall motion is not well visualized but grossly normal. There is no ventricular septal defect visualized. LVEF is 55%. Right Ventricle The right ventricle is normal size. Right ventricular systolic function could not be assessed. Atria The left atrium size is normal. Right atrium is not well visualized. The interatrial septum is intact with no evidence for an atrial septal defect. Saline bubble contrast intravenous injection does not demonstrate PFO. Aortic Valve The Aortic valve is sclerotic. Aortic valve is trileaflet. There is no aortic valvular stenosis. No a ortic regurgitation is present. Mitral Valve There is mitral annular calcification. No evidence of mitral valve stenosis. Trace mitral regurgitati on. Tricuspid Valve The tricuspid valve is normal in structure. There is no tricuspid valve stenosis. Trace tricuspid reg urgitation. Unable to assess PA pressure. Pulmonic Valve The pulmonary valve is normal in structure. There is no pulmonic valvular stenosis. There is no pulmo maria g valvular regurgitation. Great Vessels The aortic root is normal in size. The ascending aorta is normal in size. Aortic arch is not visualiz ed. IVC is normal in size and collapses >50% with inspiration. Pericardium There is no pericardial effusion. 2D Dimensions IVSD d PLAX 1.12 cm M: 0.6-1.2 LV Vol A2C d MOD 73.5 mL LVPW d PLAX 1.15 cm M: 0.6 - 1.2 LV Vol A4C d MOD 47.7 mL LVID d PLAX 4.20 cm M: 4.2 - 5.8 LA vol/ BSA A2C s A-L 24.5 mL/m2 LVDs 3.15 cm M: 2.5 - 4.0 LA vol/ BSA A4C s A-L 15.1 mL/m2 Ao Root d 2.78 cm M: 3.1 - 3.7 LA Vol/ BSA Biplane s A-L 20.6 mL/m2 Ao Asc Diam d 3.41 cm M: 2.6 - 3.4 LA Area A4C s MOD 13.76 cm2 LV EF Teichholz 49.0 % LA Area A2C s MOD 18.72 cm2 LVEF (Nelson's) 54.47 % M: 52 - 72 LV EF A4C MOD 55.2 % LV Volume 43.67 mL M: 62 - 150 LV EF A2C MOD 55.5 % LV Volume Index 21.51 mL/m2 M: 34 - 74 LV EF Biplane MOD 54.5 % LV Vol Biplane MOD 58.5 mL SV 31.86 mL FS 24.50 % SV Index 15.71 mL/m2 LV Diastology MV E' medial 0.062 (>0.07 m/s) E/A Ratio 0.6 LV E/e MED 9.05 (<14) MV E Vmax 0.57 (0.4-1.3 m/s) MV E' lateral 0.072 (>0.1 m/s) MV A Vmax 1.00 (0.4-1.3 m/s) LV E/e LAT 7.85 (<14) MV E/A Ratio 0.56 MV E/E' medial 9.08 MV E/E' lateral 7.85 Aortic Valve LVOT Area 3.23 cm2 AoV Area Vmax 2.73 cm2 LVOT Vmax 1.15 m/s AoV Area/ BSA (Vmax) 1.35 cm2/m2 LVOT Mean Les. 0.80 m/s SHYANNE Mean Les. 2.69 cm2 LVOT Peak Grad 5.3 mmHg SHYANNE Mean Les. Index 1.33 cm2/m2 LVOT Mean Grad 2.8 mmHg LVOT VTI 0.205 m LVOT Diam s 2.00 cm AoV Vmax 1.36 m/s Velocity Ratio 0.85 AoV Mean Les. 0.96 m/s AoV Peak Grad 7.4 mmHg LVOT SV 66.40 mL AoV Mean Grad 4.1 mmHg AoV VTI 0.264 m AoV Area VTI 2.52 cm2 AoV Area/ BSA (VTI) 1.24 cm/m2 Mitral Valve MV DT 297 (160-240 msec) MV PHT 86 msec MV Area PHT 2.55 cm2 MV VTI 0.245 m MV Area VTI 2.71 (4.0-6.0 cm2) Pulmonary Valve PV Vmax 1.06 (0.5-1.5 m/s) RVOT Peak Gr. 2.35 mmHg PV Peak Grad 4.5 mmHg RVOT Mean Gr. 1.05 mmHg PV Mean Grad 2.8 mmHg RVOT VTI 0.130 m PV VTI 0.219 m RVOT Vmax 0.77 m/s Tricuspid Valve RA Pressure 3.00 mmHg
[2022-10-29] MEDS: Albuterol/Ipratropium 3 ML UPD VIAL UPD ×4 (08:52→19:19)
[2022-10-29] MEDS: Pantoprazole 40 MG TABCR PO (10:17)
[2022-10-29] MEDS: POTASSIUM CHLORIDE 20 MEQ/100 ML BAG 50 MEQ IVPB (10:29)
[2022-10-29] MEDS: Magnesium Chloride 64 MG TABCR PO ×2 (10:32→20:09)
[2022-10-29] MEDS: Venlafaxine 50 MG TAB 200 MG PO (10:32)
[2022-10-29] MEDS: amLODIPine 5 MG TAB PO (10:32)
[2022-10-29] MEDS: Aspirin E.C. 81 MG TABEC PO (10:32)
[2022-10-29] MEDS: Multivitamin TAB 1 TAB PO (10:33)
[2022-10-29] MEDS: Losartan 50 MG TAB PO (10:33)
[2022-10-29] MEDS: Cyanocobalamin 500 MCG TAB 1000 MCG PO (10:33)
[2022-10-29] MEDS: Cholecalciferol (Vitamin D3) 1,000 UNIT TAB 2000 UNITS PO (10:33)
[2022-10-29] MEDS: Atorvastatin 40 MG TAB 80 MG PO (10:33)
--- NOTE | 2022-10-29 10:39 | CMPROGNOTE_ITS ---
- If Service Date Differs Date of service: 10/29/22 Time of Service: 10:39 Care Management Progress Note S/O:Jimi was sitting up in a chair when CM met with him. He was smiling and maintained good eye contact with CM. This morning Jimi's daughter Sujatha Jeffers came to visit and asked to speak to CM. She had questions about POA and guardianship and advanced directives. She also had questions about rehab. PT completed their evaluation and recommended SNF for short term rehab and even suggested that acute rehab might be beneficial. CM discussed this with Sujatha Jeffers and she agreed that acute rehab would be preferable but that if he did not meet criteria, she would like referrals sent to local SNFs. CM sent referrals to [facility] in [place], [place], [facility], [facility] and [facility]. [facility] reached out and stated that he met clinical criteria and that they will offer him a bed as soon as one becomes available, likely in a day or 2. [facility] also accepted him but that indicated that the family needs to understand that there will be a co-pay after day 20 as he has no Medicare supplemental insurance. CM reminded Jimi that there was a discussion about going to rehab for strengthening and he indicated that he is still willing to go. A: iJmi is a 77 year old man admitted on 10/27/22 with a suspected CVA P:Anticipate Jimi will be discharged to either acute rehab or a jail facility before returning to his daughter's home. He will follow up with facil ity providers and plan of care. Transportation will be determined by disposition. CM will continue to support Jimi and his family and assess for ongoing discharge concerns.
--- NOTE | 2022-10-29 11:50 | DI.MRI_ITS ---
Exam(s) MR BRAIN WO EXAM: MR BRAIN WO CLINICAL HISTORY: suspected acute CVA TECHNIQUE: Multiplanar multisequence MRI of the brain was performed. COMPARISON: CT CT BRAIN NECK CTA from 10/27/2022 FINDINGS: VENTRICLES AND EXTRA AXIAL SPACES: Mild ex vacuo dilatation, greater of the left lateral ventricle. MIDLINE SHIFT: None. CEREBRAL PARENCHYMA: There is a small focus of restricted diffusion seen in the medial aspect of the posterior left frontal lobe, superior to the left lateral ventricle. Additional focus of restricted diffusion is seen in the left thalamus region. A few other tiny scattered foci of restricted diffusi on are seen in both cerebral hemispheres. There are extensive white matter changes consistent with c hronic microvascular ischemia. No space-occupying lesion identified. Moderate atrophy noted. Old le ft basal ganglia lacunar infarcts. HEMORRHAGE: None. BRAINSTEM/CEREBELLUM: Microvascular changes in the brainstem. VISUALIZED PARANASAL SINUSES/MASTOIDS:Clear. [place]: Normal flow void. PITUITARY GLAND: Unremarkable. ORBITS: Unremarkable. IMPRESSION: Small foci of restricted diffusion consistent with acute infarcts. Large is seen in the left thalami c region and posteromedial left frontal lobe. DATA REPOSITORY:
--- NOTE | 2022-10-29 12:23 | PTTR_ITS ---
Date of service: 10/29/22 Time of Service: 10:32 PT Notes Visit Reasons: Suspected Acute CVA Inpatient Physical Therapy Treatment Note [facility] Date: 10/29/2022 PRECAUTIONS: Fall, activity as tolerated, dysphagia, right sided weakness SUBJECTIVE: Layton demonstrates dysphagia however is able to communicate his willingness to participate in PT. OBJECTIVE: PAIN: Patient does not indicate pain BED MOBILITY/TRANSFERS Supine-sit: Min A in a.m.; SBA in p.m. Sit-supine: Mod A x2 Sit-stand: CGA + Min A in a.m.; CGA x2 in p.m. Stand-sit: CGA x2 in a.m.; CGA in p.m. GAIT Assistive Device: ANALYTICAL MANAGER x2 in a.m.; FWW in p.m. Weight bearing: WBAT R Assist: CGA x2 Distance: 3 steps F/B + 3 side steps to L in a.m.; 60' in p.m. Deviation: Weakness in R LE, slow advancement of R LE THEREX: Patient was instructed in an UE and LE strengthening program, completed in a supine position in a.m. and in a seated position in p.m., to include: shoulder flexion, heel slides, hip abduction in a.m.; shoulder flexion, forward reaching, ankle pumps, LAQ and hip flexion in p.m.. In a.m., he requires assist with all exercises on the right side due to weakness. ASSESSMENT: Patient tolerated session well without complaint. He was able to tolerate a progression in gait distance with FWW support and CGA x2 for safety in p.m.. He demonstrates improved strength in R LE and UE in p.m. compared to a.m. session. PLAN: Continue with gait and transfer training, as well as global strengthening for improved mobility as well as activity tolerance. TREATMENT CODE/TIME: Session 1: 25 minutes; [id number], [id number] (10:32) Session 2: 30 minutes; [id number], [id number] (13:57)
--- NOTE | 2022-10-29 12:35 | W.PM.PROGNOT ---
Date of Service Date of service: 10/29/22 Time of Service: 09:30 Assessment and Plan Assessment and plan (1) Acute CVA (cerebrovascular accident): Status: Acute Assessment and plan: Small foci of restricted diffusion, large in left thalamic region and posteromedial left frontal lobe on MRI. Already on aspirin. Continue high dose atorvastatin. Await neurology recommendations. PT/OT recommend SNF. Await speech therapy recommendations. (2) Aspiration pneumonia: Status: Acute Assessment and plan: with hypoxia. Continue zosyn. Await speech therapy eval. (3) Hypokalemia: Status: Acute Assessment and plan: Replete, Recheck in am. (4) Hypomagnesemia: Status: Resolved Assessment and plan: Recheck in am. (5) Dysphagia: Status: Acute Assessment and plan: Trialing pureed/mildly thickened diet. Await eval by speech therapy. (6) DVT prophylaxis: Status: Acute Assessment and plan: SC enoxaparin (7) Discharge planning issues: Status: Acute Assessment and plan: Full code Continues to require hospitalization. Would benefit from acute rehab on discharge; referrals pending. C/s palliative care. Case discussed with Dr Sanchez. Subjective Subjective Interval history since last seen: Mr Cam states he is not in pain, denies shortness of breath, nausea, dizziness. He does not know where he is. He is awaiting neurology consult today. No speech therapy available until tomorrow. Exam Narrative Exam Narrative: General: Pleasant elderly male who is sitting up in bed, A&Ox1, on 2L of O2 by [place] Neurological: A&Ox1, EOMI, less obvious R facial droop today, 5/5 strength LUE/LLE, 4/5 strength RUE/RLE, aphasic, providing yes/no answers HEENT: EOMI, MMM Cardiovascular: RRR, no m/r/g Lungs: crackles at B bases Gastrointestinal: soft, nontender, nondistended Extremities: no edema BLEs, 1+ pedal pulses B Objective Last Vital Signs Temp 37.1 C 10/28/22 17:00 Pulse 84 10/29/22 08:53 Resp 21 10/29/22 08:53 BP 116/61 10/29/22 06:00 Pulse Ox 96 10/29/22 08:53 Laboratory Results - last 24 hr 10/29/22 10/29/22 04:40 04:40 WBC 6.38 RBC 4.02 L Hgb 11.6 L Hct 35.2 L MCV 88 MCH 28.9 MCHC 33.0 RDW 14.6 H Plt Count 215 MPV 10.0 Immature Gran % 0.3 Neutrophils % 52.2 Lymphocytes % 26.8 Monocytes % 9.1 Eosinophils % 10.8 Basophils % 0.8 Nucleated RBC % 0.0 Absolute Neutrophils 3.33 Absolute Lymphocytes 1.71 Absolute Monocytes 0.58 Absolute Eosinophils 0.69 Absolute Basophils 0.05 Sodium 140 Potassium 3.4 L Chloride 105 Carbon Dioxide 26.4 Anion Gap 8.6 BUN 19 H Creatinine 1.5 H Est GFR (CKD-EPI 2020) 47.95 Glucose 105 Calcium 9.1 Magnesium 1.9 Objective Narrative Objective Narrative: MRI brain: Small foci of restricted diffusion consistent with acute infarcts.? Large is seen in the left thalamic region and posteromedial left frontal lobe. Echo; Normal left ventricular wall thickness and chamber size.? Estimated ejection fraction is 55%.? No segmental wall motion abnormalities were noted Right ventricle is grossly normal in size The atria are normal in size No intracardiac shunt is demonstrated using injection of agitated saline Aortic valve is sclerotic and trileaflet without stenosis or regurgitation Mitral annular calcification, trace mitral regurgitation Time Spent with Patient Time Spent with Patient: 35-49 minutes Time was spent: preparing to see the patient(eg.review tests), obtaining and/or reviewing separately otained hiistory, ordering medications,tests, procedures, referring, communicating with other health director of career services, indepentently interpreting results, counseling the patient and care coordination
--- NOTE | 2022-10-29 13:07 | OT.INIE ---
Occupational Therapy Notes Inpatient Occupational Therapy Evaluation Date: 10/29/22 Referring Doctor:Kelsi Mondragon MD OT Orders: Non urgent Precautions: Fall, standard, full PATIENT PROFILE/ADMITTING DIAGNOSIS: Pt is a 77 year old male who was admitted to the ICU with a dx of acute CVA, aspiration penumonia, dysphagia, hypomagnesemia, hypokalemia, acute (R) sided weakness. Past Medical History: Medical History?(Updated 10/27/22 @ 18:46 by Kelsi Mondragon MD) CVA (cerebral vascular accident) Surgical History?(Updated 10/27/22 @ 18:46 by Kelsi Mondragon MD) Surgical history unknown Social History/Home Situation: Unable to assess d/t pts limited verbal communication this morning. Per note, Layton lives in [place], [place] in a mobile home with his daughter Sujatha Jeffers. He recently moved from [place], [place] where he was living with his son Víctor. Jimi suffered a stroke at some time in the past which has left him with residual right sided weakness. He requires assistance with all ADLs, however he can feed himself. Per daughter, Jimi was able to walk short distances a couple of weeks ago and was able to use his right arm more. Equipment owned/DME: Unable to assess SUBJECTIVE: OT was able to assess pt with minimal verbal communication and increased performance time for commands. OBJECTIVE: General Observation: telemetry, IV in (R) UE, BP cuff on (R) UE, (R) UE supported on pillow Mental Status: Alert to name Pain: unable to assess ROM: RUE able to bend arm at elbow about 20* L UE WFL with limitations into shoulder flexion STRENGTH: RUE 2+/5 LUE 3/5 FUNCTIONAL MOBILITY/ADLS: BATHING lying in bed with mod to max vc Bathing UE Max (A) when it comes to the (R) UE, mod (A) for (L) to bring hand to face, unable to cross midline at this time DRESSING Dressing UE max (A) BALANCE: assessed while pt was in bed with mx trunk support Static sitting Good Dynamic Sitting Good INFORMED CONSENT/EDUCATION: Pt instructed in purpose of OT Consult and plan of care. ASSESSMENT: Patient is a 77-year-old male referred to occupational therapy services with diagnosis of acute CVA, aspiration penumonia, dysphagia, hypomagnesemia, hypokalemia, acute (R) sided weakness. Patient presents with clinical signs and symptoms consistent with dx, as demonstrated by the following impairment level findings/functional limitations: Impairments in ADL/IADL and leisure activities, decreased (B) UE strength, (R) sided neglect, minimal verbal communication, decreased functional activity tolerance, high risk for contractures to (R) UE, decreased (R) UE ROM, unable to verbally communicate with OT during session. Patient is assessed as a high [id number] complexity based on the following: History: see above Examination: see functional limitations as noted above Presentation: evolving Decision Making: high complexity GOALS Goals x1 week 1. Transfers min (A) 2. Dressing mod (A) 3. Bathing mod (A) 4. Toileting mod (A) 5. Eating (I) PLAN OF CARE/TREATMENT PLAN: 1x/day, 5 days/ week x 1week Initiate Occupational Therapy Services for bathing, dressing, grooming, toileting, eating, transfer training. DISCHARGE RECOMMENDATIONS OT recommends SNF when medically cleared per MD based on pts current level of function. TREATMENT TIME/MINUTES/CODES [id number], 97738, 20 minutes [facility] [place], [place]
[2022-10-29] MEDS: Clopidogrel 75 MG TAB PO (17:32)
[2022-10-29] MEDS: QUEtiapine 25 MG TAB PO (18:55)
--- NOTE | 2022-10-29 19:04 | NUR.NOTE ---
Sent via text to the nursing supervisor shuttle veneering at 1900: 221 RF: Dr Mondragon was updated on his acute delirium, requiring 1:1 for his safety. We also gave him a prn dose of Seroquel. She states he needs a cadre. denlison ngo
[2022-10-29] MEDS: QUEtiapine 50 MG TAB 150 MG PO (20:08)
[2022-10-29] MEDS: Venlafaxine 50 MG TAB 150 MG PO (20:09)
[2022-10-29] MEDS: Enoxaparin 40 MG/0.4 ML SYR SC (20:11)
[2022-10-30] VITALS (11 sets, daily range): BP systolic 62–142; BP diastolic 15–82; PULSE 61–89; RESP 8–30; TEMP 36.2–36.7; O2SAT 89–95
--- NOTE | 2022-10-30 | DI.CT_ITS ---
Exam(s) CT CHEST/ABD/PEL W EXAM: CT CHEST/ABD/PEL W CLINICAL HISTORY: multiterritory stroke, ?malignancy. TECHNIQUE: Imaging Protocol: Axial computed tomography images with coronal and sagittal reformatted images were created and reviewed CONTRAST MATERIAL: Intravenous: Omnipaque 350 Contrast volume:100 ml Oral: None COMPARISON: CT CT BRAIN NECK CTA from 10/27/2022 FINDINGS: CHEST: LUNGS: There are no infiltrates nor pleural effusions and there are no ominous pulmonary nodules. No obvious focal findings in the trachea and mainstem bronchi. There is no bronchiectasis. Solitary t iny calcified granuloma noted in the anterior segment of the left upper lobe.. MEDIASTINUM: There is no hilar nor mediastinal adenopathy. Visualized thyroid unremarkable. CARDIAC: Heart size is normal. There is no pericardial effusion.Coronary artery calcification noted. Caliber of the thoracic aorta is normal. Aorta exhibits mural calcification. No evidence of aorti c dissection. OSSEOUS: No significant osseous lesions.. ABDOMEN: Respiratory motion artifact There is no ascites. LIVER: There are no focal hepatic lesions nor dilatation of intrahepatic ducts. GALLBLADDER/BILIARY: Possible small gallstones versus artifact from respiratory motion here. CBD is not dilated. PANCREAS: No evidence of pancreatic mass nor dilatation of the pancreatic duct. SPLEEN: Spleen is not enlarged. There are no intrasplenic lesions. Splenic and portal veins are shin nt. ADRENALS: There are no significant adrenal masses. KIDNEYS: No calculi nor hydronephrosis. No solid renal masses. No cysts evident. ABDOMINAL AORTA: Peripherally calcified and atherosclerotic but without prominent aneurysm. However, the distal abdominal aorta just below the GARRISON takeoff there is a thin dissection flap seen on 2 imag es, nonobstructive. The common iliac arteries are heavily calcified but not enlarged. There is no p sintia-aortic adenopathy. There is no adenopathy around the aortic bifurcation nor along the iliac teena ns and there is no inguinal adenopathy. LYMPH NODES: There is no retroperitoneal nor paraaortic adenopathy. ABDOMINAL WALL: No evidence of significant anterior abdominal wall nor inguinal hernia. GI: There is no evidence of bowel obstruction. PELVIS: LYMPH NODES: There is no intrapelvic nor inguinal adenopathy. GI: No evidence of appendicitis.No evidence of sigmoid diverticulitis. URINARY BLADDER: No calculi nor obvious masses evident REPRODUCTIVE: Prostate size normal. Seminal vesicles unremarkable. No obturator adenopathy evident. OSSEOUS: No significant osseous lesions. No fractures evident. Chronic degenerative disc disease. IMPRESSION: 1. No significant acute findings in the chest, abdomen, and pelvis. 2. Atherosclerotic abdominal aorta with nonocclusive focal dissection flap in the distal abdominal ao rta approximately 2.5 cm above the bifurcation. This extends over a cephalocaudal length of 1.6 cm. 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 There is no vascular occlusion at this level. Distal to this the common iliac arteries are heavily calcified but not enlarged. 3. No evidence of ascites, mesenteric masses, nor lymphadenopathy. 4. No significant osseous lesions. RADIATION DOSE DELIVERED: 1,171.13mGy.cm Total DLP DATA REPOSITORY: All CT scans at this facility are submitted to the National Radiology Data Registry (NRDR) Dose Index Registry (DIR) with the [employer] (ACR). RADIATION OPTIMIZATION: All CT scans at this facility use at least one of these dose optimization te chniques: automated exposure control; mA and/or kV adjustment per patient size (includes targeted exa ms where dose is matched to clinical indication); or iterative reconstruction.
[2022-10-30] MEDS: PIPERACILLIN/TAZO 3.375 GM in Normal Saline 50 ML IVPB ×2 (01:08→09:53)
[2022-10-30 06:37] LABS: Abs Immature Grans 0.02 10^3/uL (0.0-0.06); Absolute Basophil Count 0.06 10^3/uL (0.0-0.2); Absolute Eosinophil Count 0.81 10^3/uL (0.0-0.7); Absolute Lymphocyte Count 2.15 10^3/uL (1.2-3.4); Absolute Monocyte Count 0.47 10^3/uL (0.1-0.8); Absolute Neutrophil Count 3.15 10^3/uL (1.2-6.7); Basophils % 0.9; Eosinophils % 12.2; HCT 37.9 % (40.0-50.0); HGB 12.1 g/dL (13.5-17.5); Immature Grans % 0.3; Lymphocytes % 32.3; MCHC 31.9 % (32.0-36.0); MCV 88 fL (80-95); MPV 10.5 fL (8.0-11.0); Monocytes % 7.1; Neutrophils % 47.2; Platelet Count 255 10^3/uL (130-400); RBC 4.32 10^6/uL (4.36-5.78); RDW 14.6 % (11.8-14.1); WBC 6.66 10^3/uL (4.4-10.8)
[2022-10-30 06:55] LABS: Anion Gap 10.3 mmol/L (3-11); BUN 22 mg/dL (7-18); CO2 24.7 mmol/L (21.0-32.0); CREATININE 1.6 mg/dL (0.70-1.30); Calcium 9.6 mg/dL (8.5-10.1); Chloride 107 mmol/L (98-107); Estimated GFR 44.38 (mL/min/1.73m2); Glucose 104 mg/dL (74-106); Magnesium 1.9 mg/dL (1.8-2.4); Potassium 3.6 mmol/L (3.5-5.1); Sodium 142 mmol/L (136-145)
[2022-10-30] MEDS: Albuterol/Ipratropium 3 ML UPD VIAL UPD ×2 (07:36→12:36)
[2022-10-30 07:41] LABS: Procalcitonin 0.1 ng/mL
--- NOTE | 2022-10-30 08:57 | W.SPSTE ---
Date of service: 10/30/22 Time of Service: 08:00 Subjective Patient referred for Clinical Swallow and Cognitive-Communication evaluation from Dr Mondragon given suspected CVA and aspiration pna. Precautions: Fall, full code, aspiration HPI: Pt is a 77 year old male admitted with acute R sided weakness, dysphagia, and hypokalemia and hypomagnesemia. Upon admit found to have aspiration pna. MRI showed small foci of restricted diffusion, large in left thalamic region and posteromedial left frontal lobe. Medical history is poorly known. When he presented to ED yesterday, his daughter noted he appeared weaker on R side and not using RUE, as well as increased trouble swallowing since prior day. Predisposing dysphagia risk factors: prior CVA Clinical signs of possible chronic dysphagia: Aspiration PNA Precipitating dysphagia risk factors / triggering event: acutely worsened R sided weakness. All Active Problems?(Updated 10/27/22 @ 18:46 by Kelsi Mondragon MD) Discharge planning issues (Acute) DVT prophylaxis (Acute) Dysphagia (Acute) Hypomagnesemia (Acute) Hypokalemia (Acute) Acute right-sided weakness (Acute) Medical History?(Updated 10/27/22 @ 18:46 by Kelsi Mondragon MD) CVA (cerebral vascular accident) Surgical History?(Updated 10/27/22 @ 18:46 by Kelsi Mondragon MD) Surgical history unknown SUBJECTIVE: Patient was contacted in his room in the ICU. He was unaccompanied for this visit. Pleasant, confused, joking. Sitting upright in chair at bedside for this evaluation. Patient states he eats a relatively normal diet at baseline, able to tolerate meats, etc. Endorses dry mouth. Avoids crunchy foods. Denies any difficulty swallowing now or at baseline. He does endorse previously experiencing heartburn which would occasionally wake him up at night. He is currently on pantoprazole. We aren't in [facility]. Patient states I don't have a house. Objective Objective Speech: 100% intelligible without overt/glaring dysarthria. Due to time constraints, no other speech tasks were performed outside of conversational. Respiration: Appears tolerate room air without s/sx dyspnea. Oral motor & Peripheral exam (notable findings only): Edentulous (total) with upper plate only. Oral mucosa is mild dry with thick secretions noted on posterior structures of oral cavity. No lesions. Oral care appears good/fair. Sensory-motor findings: CNV: WFL Jaw movement. Unable to test sensation due to patient confusion/comprehension deficits. CNVII: ?Mild flattening of nasolabial fold and slight assymetry at rest (unsure if different from baseline). Poor cordination of non-speech AMR's. Superior facial muscles appear symmetric. CN X: Weak and uncoordinated volitional cough, improves with reflexive cough. Vocal quality is mildly rough/hoarse but dry. CN XII: Mild-moderate R>L sided lingual weakness and mild R deviation to protrusion. Volitional Swallow: Suspect delayed onset of swallow. Inconsistent absent swallow initiation for saliva swallow or with ice chips. Food items tested: ?? Ice: x4 chips IDDSI 0: water x10 cup sips IDDSI 2: x4 cup sips IDDSI 4: puree x 5 bites via tsp IDDSI 7: sharon cracker x2 bites Oral phase: Pocketing Residue (R side, mild with solids) Pharyngeal phase: Delayed swallow initiation Cough after swallow (thin>mildly thick liquids) Cognitive and Communication Tasks: Object namin/8 1-step instructions: 3/3 2 step instructions: 2/3 Complex instructions: 0/3 (e.g., Before looking at the ceiling, point to the door. Reading: Reports normally using reading glasses. Difficulty reading even very large print (~50% accuracy for large words on a page). Small to medium print unable to read a sentence. Orientation: Not oriented to date, month (June), place (we're not in [facility]). Oriented to self. Not oriented to situation. With redirection, able to state correct month after short delay (~30 seconds) Problem-solving: Looks for call button when asked what to do if he needs help. Independently looks for calendar on wall when asked what is the date. Additional observation: Joking spontaneously throughout. Improved comprehension given context in conversational format, though still requiring frequent repetitions and requests for repetition. Suspect some hearing loss. Patient denies needing hearing aids but reports a long time since having hearing tested. Assessment IMPRESSIONS & PLAN: Suspect at least mild-moderate aphasia as well as cognitive deficits. Unsure how current LOF compares to baseline, but suspect he is experiencing some language processing deficits overlaid with possible baseline vs new onset cognitive communication deficits. No standardized assessments were administered due to time constraints. He would benefit from a more thorough evaluation once discharged in order to further characterize cognitive deficits and aphasia. Suspect mild-moderate dysphagia, with poor tolerance of thin liquids. Complicated likely by xerostomia and R sided facial/labial weakness as well as delayed swallow onset. Recommend supervision and cues to follow aspiration precautions as below. Maintain current diet, with specific instructions for liquids during vs between meals as below. Further JEWELRY DRILL OPERATOR services: Recommend fpc upon discharge for swallowing & cognitive-communication assessment & treatment. Inpatient JEWELRY DRILL OPERATOR will follow while on unit. ? Recommendations: Diet Texture Modification(s): IDDSI Level(s) SOLIDS 6-Soft & Bite-Sized Solids with added moisture. LIQUIDS 2-Mildly Thick Liquids during meals. 0-Thin liquids (water) between meals only, if oral care precautions are followed Medication Intake: Whole with 4-Extremely Thick Liquids RISK MANAGEMENT: HOB upright as tolerated; upright for all PO intake. Encourage physical mobility as tolerated. Oral hygiene q3h/every 3 hours and before/after PO intake, using friction with toothbrush on all oral structures as tolerated Level of Assistance/Supervision: 1:1 close supervision/assist for all PO intake. Strategies/Adaptations/Assistive Equipment: Reduce auditory and/or visual distractions when eating Provide verbal and/or visual cues to use recommended strategies: Benefits from visual/verbal cue for STOP to control sip sizes. Small sips and bites when eating/drinking. Slow rate of intake Small+frequent meals throughout day Posture/Positioning Needs: Maintain upright position at least 60 minutes after meals Avoid meals/snacks 2-3 hours prior to reclining/sleeping Sleep with head of bed elevated to reduce likelihood of nocturnal reflux. Communication Recommendations: Provide instructions or information 1 step/item at a time. When possible, provide patient with Y/N questions vs open-ended, or choice between 2 options to reduce linguistic burden. Provide simple written and visual reinforcement of important information in very large print when possible. State the topic of conversation prior to launching into any detail. Provided education to: Patient, Nursing, information technology audit manager Topics Addressed: overt s/sx to monitor for re: potential aspiration of food / liquids, recommendations for improved oral care, relationship between respiratory function changes and deglutition, Rationale for recommendations as outlined below Outcome: Verbalized/demonstrated understanding (RN, CM) Needs review/reinforcement (patient) Plan JEWELRY DRILL OPERATOR will follow while on unit. Short Term Goals: Patient will tolerate safest/least restrictive diet of soft/bite sized liquids and mildly thickened liquids without s/sx aspiration given assist and cues from trained providers during meals. Patient will follow risk management strategies with assistance from care team as outlined in recommendations below. Coding Diagnoses Acute CVA (cerebrovascular accident) I63.9 Assessment and Plan Assessment and plan (1) Acute CVA (cerebrovascular accident): Status: Acute
[2022-10-30] MEDS: Magnesium Chloride 64 MG TABCR PO (09:53)
[2022-10-30] MEDS: Pantoprazole 40 MG TABCR PO (09:53)
[2022-10-30] MEDS: Clopidogrel 75 MG TAB PO (09:54)
[2022-10-30] MEDS: Cholecalciferol (Vitamin D3) 1,000 UNIT TAB 2000 UNITS PO (09:54)
[2022-10-30] MEDS: Multivitamin TAB 1 TAB PO (09:54)
[2022-10-30] MEDS: Aspirin E.C. 81 MG TABEC PO (09:54)
[2022-10-30] MEDS: Atorvastatin 40 MG TAB 80 MG PO (09:54)
[2022-10-30] MEDS: Losartan 50 MG TAB PO (09:54)
[2022-10-30] MEDS: Cyanocobalamin 500 MCG TAB 1000 MCG PO (09:54)
[2022-10-30] MEDS: amLODIPine 5 MG TAB PO (09:54)
--- NOTE | 2022-10-30 09:59 | PDOC.CMPRO ---
- If Service Date Differs Date of service: 10/30/22 Time of Service: 09:59 Care Management Progress Note S/O: [facility] called this morning, to request info on Jimi's diet and nutrition order. Per CM discussion with ST, soft and bite sized and mildly thin with meals. ST evaluation is faxed. CM is waiting for a return call. Palliative consult is planned for today. A: Jimi is a 77 year old man admitted on 10/27/22 with a suspected CVA P:Anticipate Jimi will be discharged to either acute rehab or a residential facility before returning to his daughter's home. He will follow up with facility providers and plan of care. Transportation will be determined by disposition. CM will continue to support Jimi and his family and assess for ongoing discharge concerns.
[2022-10-30] MEDS: Venlafaxine 50 MG TAB 200 MG PO (10:01)
--- NOTE | 2022-10-30 10:55 | PTTR_ITS ---
Date of service: 10/30/22 Time of Service: 07:37 PT Notes Visit Reasons: Suspected Acute CVA Inpatient Physical Therapy Treatment Note [facility] Date: 10/30/2022 PRECAUTIONS: Fall, activity as tolerated, aphasia, right sided weakness SUBJECTIVE: Layton demonstrates aphasia however is able to communicate his willingness to participate in PT. OBJECTIVE: PAIN: Patient does not indicate pain BED MOBILITY/TRANSFERS Sit-stand: SBA Stand-sit: SBA GAIT Assistive Device: PAYROLL AND BENEFITS ANALYST Weight bearing: WBAT R Assist: CGA Distance: 40' x2 Deviation: Weakness in R LE, slow advancement of R LE, easily distracted, slight LOB and path deviation with distraction THEREX: Patient was instructed in an UE and LE strengthening program, completed in a seated position, to include: shoulder abduction, shoulder flexion, forward reaching, ankle pumps, LAQ and hip flexion, hip abduction, toe taps to 4 steps and functional [id number]. Patient continues to demonstrate global weakness R>L. ASSESSMENT: Patient tolerated session well without complaint. He was able to tolerate a progression in his ther ex program, and was able to tolerate gait tra ining with PAYROLL AND BENEFITS ANALYST and CGA, although does demonstrate some global fatigue. PLAN: Patient to discharge to [facility] later today, per provider, for continued progression toward baseline level of function. TREATMENT CODE/TIME: 33 minutes; [id number], [id number] (07:37)
[2022-10-30 11:11] LABS: Source Nasal/Nares
[2022-10-30 11:43] LABS: COVID-19 PCR Negative (Negative)
[2022-10-30] MEDS: Omnipaque 350 MG/ML 100 ML BTL IJ (11:43)
[2022-10-30] MEDS: Normal Saline - Diluent 50 ML VIAL IJ (11:44)
--- NOTE | 2022-10-30 13:09 | PDOC.CMDIS ---
- If Service Date Differs Date of service: 10/30/22 Time of Service: 13:57 LACE Index Scoring Tool - Questions: Length of Stay (in days): 3 Acuity (Admit via E.D.?): No Comorbidities: Cerebrovascular Disease E.D. Visits: 0 - Answers: Total Score: 4 Risk of Readmission: Low Risk Care Management Discharge Reason for Hospitalization: ?acute CVA with right sided weakness Discharge Plan: Layton transferred to [facility] for acute rehab. Cardiac event recorder is ordered prior to transfer. He is transported via EMS. Layton will follow up Neurologist and discharge plan of care as prescribed. Patient/Family Education Needs: Review transfer instructions, Discuss ask me three. Services Needed at Discharge: [facility] ([facility], acute rehab), Transportation ([facility]ia [place], coordinated by CM)
--- NOTE | 2022-10-30 13:11 | W.PM.DS.N ---
Date of service: 10/30/22 Time of Service: 13:11 DS: Diagnosis Discharge Diagnosis (1) Acute CVA (cerebrovascular accident): Status: Acute (2) Aspiration pneumonia: Status: Acute (3) Dysphagia: Status: Acute (4) Aortic dissection, abdominal: Status: Acute (5) Atherosclerosis of abdominal aorta: Status: Acute (6) Hypomagnesemia: Status: Resolved (7) Hypokalemia: Status: Acute (8) B12 deficiency anemia: Status: Acute Discharge Plan Disposition Patient Disposition: Long-Term Facility(SNF) Condition: Improving Discharge Details Reason For Visit: Suspected Acute CVA Admit Date/Time: 10/27/22 17:17 Admit Provider: Kelsi Mondragon Attending Provider: eKlsi Mondragon Primary Care Provider: Go Camacho Hospital Course Hospital Course: Mr Cam is a 77 year old male with PMHx of 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 His swallowing was also noted to be worse. The timeline of these deficits was not 100% clear, but it appears that they got worse within 24-48 hrs prior to presentation. His CT/CTA head/neck showed some stenosis in his bilateral carotid bifurcations and proximal internal carotids (<40%) and bilateral periventricular hypodensities c/w chronic small vessel disease as well as numerous lacunar infarcts, prominent on the L side. MRI of the brain showed small foci of restricted diffusion in multiple vessel distribution c/w acute infarcts. Large focus was seen in the left thalamic region and posteromedial left frontal lobe. Reviewing these findings, Dr Sanchez of neurology recommended that the patient be kept on a baby aspirin x 1 week, then started on anticoagulation with eliquis 5 mg PO BID 1 week after the event in addition to the aspirin (11/03/22). He is recommended a cardiac event recorder which is placed on him prior to discharge. He will need to follow up with neurology in 1-2 weeks. Because of the distribution of his multiple strokes, malignancy was considered to be high on the differential, and the patient underwent a CT chest/abdomen/pelvis. This did not show any signs of malignancy, but did reveal an atherosclerotic abdominal aorta with nonocclusive focal dissection flap in the distal abdominal aorta approximately 2.5 cm above the bifurcation. 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 The radiologist, Dr Yang, did not feel that this was an acute finding. Vascular surgery is being consulted and an outpatient referral for vascular surgery at [facility] was sent. The patient was highly suspected to have an aspiration pneumonia clinically and received IV zosyn for it here. He is being discharged today to complete a 5 day course of antibiotics with augmentin. He did not have sepsis on this admission. His oxygen requirement was resolved. The patient was evaluated by PT, OT, and speech therapy. PT/OT recommendation was for acute rehab. He does have oropharyngeal dysphagia and is recommended to be on soft and bite-sized solids with added moisture, mildly thickened liquids during meals, thin water between meals only. The patient is to take medications whole with extremely thick liquids. 1:1 supervision/assist with all meals, HOB upright for all PO intake, oral hygiene Q3 hrs and before/after PO intake using friction with toothbrush on all oral structures. Small + frequent meals throughout the day are recommended. Small sips and bites when eating/drinking. Needs visual/verbal cues for stop to control sip sizes. Sleep with head of bead elevated recommended. He is being discharged to [facility] facility today. He is medically stable for discharge. Care for patient as well as completion of his discharge summary today took 60 minutes. Home Meds and New Rx's Prescriptions: New quetiapine 25 mg Tablet 25 mg PO DAILY PRN PRNQty: 0 0RF ipratropium-albuterol 0.5 mg-3 mg(2.5 mg base)/3 mL Solution For Nebulization 3 ml UPD Q4H PRN PRNQty: 0 0RF cyanocobalamin (vitamin B-12) [Vitamin B-12] 500 mcg Tablet 1,000 mcg PO DAILY Qty: 0 0RF Mag 64 64 mg Tablet,Delayed Release (Dr/Ec) 64 mg PO BID Qty: 0 0RF amoxicillin-pot clavulanate 875-125 mg tablet 1 tab PO BID Qty: 6 0RF Eliquis 5 mg tablet 5 mg PO BID Qty: 60 0RF Rx Instructions: Start on 11/03/22 Continued cholecalciferol (vitamin D3) [Vitamin D3] 50 mcg (2,000 unit) Tablet 50 mcg PO DAILY venlafaxine 100 mg Tablet 200 mg PO QAM levothyroxine 100 mcg Capsule 100 mcg PO DAILY AM magnesium Tablet 1 tab PO DAILY Rx Instructions: 500 mg multivitamin Tablet 1 tab PO QAM amlodipine 5 mg Tablet 5 mg PO DAILY venlafaxine 100 mg Tablet 150 mg PO HS pantoprazole 40 mg Tablet,Delayed Release (Dr/Ec) 40 mg PO DAILY atorvastatin 80 mg Tablet 80 mg PO QAM losartan 50 mg Tablet 50 mg PO QAM aspirin 81 mg Tablet 81 mg PO DAILY quetiapine 150 mg Tablet 150 mg PO QHS Discharge Instructions Instructions: Apixaban (By mouth), Ischemic Stroke (DC) Additional Instructions: Eliquis is to be started on 11/03/22. Return to the hospital with any new neurological symptoms, fever, bleeding, chest pain, or shortness of breath. Follow up with Neurology (Dr Sanchez or [facility]) in 1-2 weeks. Follow up with Vascular surgery ([facility] referral sent). Referrals: [facility] [OTHER] - Lexie Sanchez MD [ [facility] STAFF PHYSICIAN] - Activity:: Activity as Tolerated Equipment/Supplies:: cardiac event recorder Diet:: soft/bite sized/mildly thick liquids, thin water, meds whole w/ pudding Discharge Orders Discharge Orders: Discharge Order (Routine); Ordered 10/30/22 Ordered By: Kelsi Mondragon DS: Summary Time Spent with Patient providing and/or coordinating discharge services: Greater than 30 minutes Status at Discharge Functional status at discharge: wheelchair bound Overall status at discharge: patient is not back to baseline Mental Status: mental status grossly normal Speech and Movement: other Mood: congruent mood Affect: normal affect and animated Exam Narrative Exam Narrative: General: Pleasant elderly male who is sitting up in bed, A&Ox2, on RA Neurological: A&Ox2, EOMI, no R facial droop today, 5/5 strength LUE/LLE, 4/5 strength RUE/RLE, aphasic, providing yes/no answers HEENT: EOMI, MMM Cardiovascular: RRR, no m/r/g Lungs: crackles at B bases Gastrointestinal: soft, nontender, nondistended Extremities: no edema BLEs, 1+ pedal pulses B Psych Mental Status: mental status grossly normal Speech and Movement: other Mood: congruent mood Affect: normal affect and animated DS: Data Vitals/I&O Vitals and I&O: Vital Signs Temperature 36.7 C 10/30/22 12:30 Temperature Source Temporal Artery Scan 10/30/22 12:30 Pulse 88 10/30/22 12:30 Pulse Rhythm Regular 10/30/22 12:38 Pulse 70 10/30/22 04:00 Respiratory Rate 17 10/30/22 04:00 Respiratory Effort Normal, Non-Labored 10/30/22 12:38 Respiratory Depth Normal 10/30/22 12:38 Respiratory Pattern Normal 10/30/22 12:38 Blood Pressure 142/78 H 10/30/22 12:28 Blood Pressure Mean 94 10/30/22 12:28 Blood Pressure Position Supine 10/27/22 18:50 Pulse Oximetry 95 10/30/22 09:00 Oxygen Delivery Method Room Air 10/30/22 12:36 Oxygen Flow Rate 0 10/30/22 12:36 Pain Level 0 10/30/22 12:30 Intake & Output 10/29/22 10/30/22 10/30/22 23:59 11:59 23:59 Intake Total 150 / 300 290 / 410 120 / 410 Output Total 350 / 350 150 / 150 Balance -200 / -50 140 / 260 120 / 260 Intake: IV 150 / 300 150 / 150 Oral 140 / 260 120 / 260 Output: Urine 350 / 350 150 / 150 Other: Urine Color Yellow Urine Appearance Clear Urine Odor Normal Comment Incontinent unmeasured amount of urine. unable to measure, incontinent unable to measure, incontinent in diaper Voiding Methods Urinal Diaper Diaper Incontinent Incontinent Data Completed and Pending Completed studies during hospitalization [Text1]: CXR: Increased markings are noted throughout both lung webb but there is a suboptimal inspiratory effort here.? Recommend additional imaging with nonportable PA and lateral views when clinically possible and with better inspiratory effort. CT/CTA head/neck :1. Some stenotic disease at the carotid bifurcations and proximal internal carotid arteries in the neck, left more so than right but appearing to be less than 40 percent stenosis bilaterally.? 2.? Patent vertebral arteries. 3.? Patent intracranial arteries. 4. Bilateral periventricular hypodensity consistent with chronic small vessel disease and there are also numerous lacunar infarcts in the periventricular white matter, prominent on the left side.? Recommend follow-up MRI with diffusion imaging. Echo: Normal left ventricular wall thickness and chamber size.? Estimated ejection fraction is 55%.? No segmental wall motion abnormalities were noted Right ventricle is grossly normal in size The atria are normal in size No intracardiac shunt is demonstrated using injection of agitated saline Aortic valve is sclerotic and trileaflet without stenosis or regurgitation Mitral annular calcification, trace mitral regurgitation MRI brain: Small foci of restricted diffusion consistent with acute infarcts.? Large is seen in the left thalamic region and posteromedial left frontal lobe. CT chest/abdomen/pelvis: 1. No significant acute findings in the chest, abdomen, and pelvis. 2. Atherosclerotic abdominal aorta with nonocclusive focal dissection flap in the distal abdominal aorta approximately 2.5 cm above the bifurcation.? This extends over a cephalocaudal length of 1.6 cm.? 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 There is no vascular occlusion at this level.? Distal to this the common iliac arteries are heavily calcified but not enlarged. 3. No evidence of ascites, mesenteric masses, nor lymphadenopathy. 4. No significant osseous lesions. Labs on day of discharge: Labs from last 24 hours 10/30/22 10/30/22 10/30/22 11:02 05:35 05:35 WBC 6.66 RBC 4.32 L Hgb 12.1 L Hct 37.9 L MCV 88 MCH 28.0 MCHC 31.9 L RDW 14.6 H Plt Count 255 MPV 10.5 Immature Gran % 0.3 Neutrophils % 47.2 Lymphocytes % 32.3 Monocytes % 7.1 Eosinophils % 12.2 Basophils % 0.9 Nucleated RBC % 0.0 Absolute Neutrophils 3.15 Absolute Lymphocytes 2.15 Absolute Monocytes 0.47 Absolute Eosinophils 0.81 H Absolute Basophils 0.06 Sodium Potassium Chloride Carbon Dioxide Anion Gap BUN Creatinine Est GFR (CKD-EPI 2020) Glucose Calcium Magnesium Procalcitonin 0.1 COVID-19 Source Nasal/Nares SARS-CoV-2 (PCR) Negative 10/30/22 05:35 WBC RBC Hgb Hct MCV MCH MCHC RDW Plt Count MPV Immature Gran % Neutrophils % Lymphocytes % Monocytes % Eosinophils % Basophils % Nucleated RBC % Absolute Neutrophils Absolute Lymphocytes Absolute Monocytes Absolute Eosinophils Absolute Basophils Sodium 142 Potassium 3.6 Chloride 107 Carbon Dioxide 24.7 Anion Gap 10.3 BUN 22 H Creatinine 1.6 H Est GFR (CKD-EPI 2020) 44.38 Glucose 104 Calcium 9.6 Magnesium 1.9 Procalcitonin COVID-19 Source SARS-CoV-2 (PCR) PFSH All Active Problems (Updated 10/30/22 @ 13:37 by Kelsi Mondragon MD) B12 deficiency anemia (Acute) B12 deficiency (Acute) Atherosclerosis of abdominal aorta (Acute) Aortic dissection, abdominal (Acute) Acute CVA (cerebrovascular accident) (Acute) Aspiration pneumonia (Acute) Discharge planning issues (Acute) DVT prophylaxis (Acute) Dysphagia (Acute) Hypokalemia (Acute) Acute right-sided weakness (Acute) Medical History (Updated 10/30/22 @ 13:37 by Kelsi Mondragon MD) CVA (cerebral vascular accident) Surgical History (Updated 10/27/22 @ 18:46 by Kelsi Mondragon MD) Surgical history unknown Family History (Updated 10/27/22 @ 18:46 by Kelsi Mondragon MD) Other Family history unobtainable due to patient's condition Social History (Updated 10/27/22 @ 18:47 by Kelsi Mondragon MD) Smoking/Tobacco Use Status: Former Tobacco Use Smoking risk assessment performed?: Yes Alcohol Intake: never Drug use: Never Do you feel safe at home: Yes Do you feel safe in your relationship?: Yes Time Spent with Patient Time Spent with Patient: 45-69 minutes Time was spent: preparing to see the patient(eg.review tests), obtaining and/or reviewing separately otained hiistory, ordering medications,tests, procedures, referring, communicating with other health care navigator, indepentently interpreting results, counseling the patient and care coordination
== END 2022-10-30 14:06 | disposition skilled nursing facility (03) | DRG 64 ==
LOC: ER 17:21 → ICU 18:43
PROVIDERS: Admitting Provider Internal Medicine; Emergency Provider Emergency Medicine; PCP Family Medicine; Visit Provider Internal Medicine
DX: I63.89 Other cerebral infarction (principal); I71.02 Dissection of abdominal aorta; J69.0 Pneumonitis due to inhalation of food and vomit; G81.91 Hemiplegia, unspecified affecting right dominant side; R53.1 Weakness; E83.42 Hypomagnesemia; E87.6 Hypokalemia; R13.10 Dysphagia, unspecified; I69.320 Aphasia following cerebral infarction; I69.341 Monoplegia of lower limb following cerebral infarction affecting right dominant side; Z87.891 Personal history of nicotine dependence; R29.810 Facial weakness; R09.02 Hypoxemia; I70.0 Atherosclerosis of aorta; E53.8 Deficiency of other specified B group vitamins
CPT/HCPCS: 36415; 70496; 70498; 74177; 80048; 80053; 80061; 84145; 87635; 93005; 93306; 96361; 96365; 96366; 97110; 97162; 97167; 97530; 97535; 99285; J1650; 70551; 71045; 71260; 81003; 81015; 82607; 83036; 83735; 84439; 84443; 84484; 85025; 85610; 92523; 93010; 94640; 94667; 94668; 99223; 99232; 99233; 99239; J2543; J3420; J3480; J3490; J7620

== ENCOUNTER → 2022-10-29 08:15 | Outpatient (BNVA) | payer MEDICARE, SELFPAY ==
--- NOTE | 2022-11-01 09:19 | INDS_ITS ---
Date of service: 10/30/22 PT Notes Visit Reasons: INPATIENT-SUSPECTED CVA Physical Therapy Inpatient Discharge Summary Date: 10/30/2022 Dates of service: 10/28/2023 through 10/30/2023 This is a clinical summary of care provided for the duration of dates listed above. No charge was made in the completion of this documentation. Referring Doctor:? PT Orders: PT CONSULT: limited ability Precautions: standard, fall risk Patient Profile/Admitting Diagnosis:? Suspected Acute CVA right sided weakness. Mr Cam is a 77 year old male with poorly known hx as reported in ED, PMHx other than that he had a stroke with residual aphasia and R leg weakness? who presented to [facility] after being noted to be weaker on the R and not to be using his RUE yesterday by his daughter, who felt he was worse today. Additionally, it was felt he had more trouble swallowing since yesterday. PMHX: All Active Problems (Updated 10/27/22 @ 18:46 by Kelsi Mondragon MD).? Discharge planning issues (Acute).? DVT prophylaxis (Acute).? Dysphagia (Acute).? Hypo magnesemia (Acute).? Hypokalemia (Acute).? Acute right-sided weakness (Acute).? Medical History (Updated 10/27/22 @ 18:46 by Kelsi Mondragon MD).? CVA (cerebral vascular accident).? Surgical History (Updated 10/27/22 @ 18:46 by Kelsi Mondragon MD).? Surgical history unknown.? Family History (Updated 10/27/22 @ 18:46 by Kelsi Mondragon MD).? Other.? Family history unobtainable due to patient's condition Social History/Home Situation: [place], states his daughter helps with bathing, he states he does limited walking with a cane however it was reported thru a ICU nurse per his daughter that he really doesn't walk.? I am unable to asertain his baseline level, although he does state that he is able to stand and get into his bathroom at home, likely with use of a cane. Subjective: NT. See most recent SOCIAL SERVICES COORDINATOR notes. Objective:? General Observation: NT. See most recent SOCIAL SERVICES COORDINATOR notes. Mental Status: NT. See most recent SOCIAL SERVICES COORDINATOR notes. Pain: NT. See most recent SOCIAL SERVICES COORDINATOR notes. Vital Signs: NT. See most recent SOCIAL SERVICES COORDINATOR notes. ROM: Right Upper Extremity: Increased tone, very limited AROM of shoulder PROM to 60 degrees elevation, -20 elbow extension, limited wrist extension and finger extension he does have increased energy when working hard during transfers although we are able to open his hand passively he does tend to keep it flexed. Left Upper Extremity: W FL Right Lower Extremity: In supine has 0 degrees extension but in sitting unable to fully straighten right LE -30.? Hip flexion 90, hip extension -10 Left Lower Extremity: WFL Strength: Right Upper Extremity: Difficulty with volitional right UE resistance with verbal cueing able to provide fair resistance elbow extension elbow flexion shoulder flexion at 30 degrees in shoulder abduction at 30 degrees. Left Upper Extremity: WFL Right Lower Extremity: To MMT isometric positioning hip flexion 3/5, extension 3/5, hamstring curl 3/5, knee extension 3/5 however unable to extend fully in long arc quad positioning question ability to communicate and ability to activate right LE volitionally.? DF 1/5 Left Lower Extremity: WFL BED MOBILITY/TRANSFERS? Sit-stand: SBA? Stand-sit: SBA ? GAIT? Assistive Device: MAINTENANCE OPERATOR ? Weight bearing: WBAT R Assist: CGA? Distance:? 40' x2? Deviation: Weakness in R LE, slow advancement of R LE, easily distracted, slight LOB and path deviation with distraction Balance:? Static Sitting: Good Dynamic Sitting: Fair, supports with left UE Static Standing: At RW good utilizing primarily left UE and able to stand for approximately 4 minutes Dynamic Standing: Poor and not stand without assist assess Assessment:?? Patient is a 77year old male referred to physical therapy services with the diagnosis of suspect acute CVA with right-sided weakness.? Patient presents with clinical signs and symptoms consistent with right upper extremity greater than right LE with increased tone consistent with CVA, as demonstrated by the [facility] impairment level findings: Decreased ROM right UE, right LE, increased tone flexion synergy right UE, weakness right UE and LE, dysphagia/aphasia.? Impairments are contributing to the following functional limitations: 76.75AMPAC score. Poor bed mobility Limited with transfers Limited ambulation Unable to perform ADLs Goals: Goals X1 week 1. Supine-Sit independent MET 2. Sit-Supine independent MET 3. Sit-Stand close guard MET 4. Stand-Sit close guard MET 5. Bed-Chair min assist MET 6. Chair-Bed min assist MET 7. Gait with RW to be assessed MET 8. Stairs n/a MET 9. Independent with home exercise program n/a MET 10. Balance able to stand without assist patient also to receive OT and speech evaluation.? MET DISCHARGE RECOMMENDATIONS: [] ? Home with no services [] [] ? Home with services [specify] [] ? Home with outpatient PT [] [x] ? SNF for continued rehabilitation [] []? Guitar Repair Technician Care [] [] ? SNF versus LTC based on ability to participate and progress [] TREATMENT CODE/TIME: [place] Thank you for the opportunity to participate in the care of this patient. Daisy German PT, DPT, CLT [facility] [place], [place]
== END ==
PROVIDERS: PCP Family Medicine; Referring Provider Family Medicine; Visit Provider Psychiatry & Neurology Neurology

== ENCOUNTER 2022-10-30 13:24 | Outpatient (CLI) | payer MEDICARE, SELFPAY | END 2022-10-30 13:25 | disposition home or self-care (01) | LOC: CARDOPNVT 13:24 | PROVIDERS: PCP Family Medicine; Visit Provider Family Medicine | DX: I63.9 Cerebral infarction, unspecified (principal) | CPT/HCPCS: 93270 ==

== ENCOUNTER 2022-11-26 08:37 | Outpatient (CLI) | payer MEDICARE, SELFPAY ==
--- NOTE | 2022-11-26 09:38 | W.CARDEVENT ---
Date of service: 11/26/22 Time of Service: 09:38 Cardiac Event Recorder Referring Provider:: Go Camacho Indications:: Cerebellar stroke Cardiac Event Note: This is a cardiac event monitor that only recorded for 19 hours Sinus rhythm was present throughout with an average heart rate of 85. Maximum heart rate was 109. There was no bradycardia No atrial fibrillation, SVT, high-grade AV block, ventricular dysrhythmias or pauses greater than 3 seconds were found
== END 2022-11-26 08:38 | disposition home or self-care (01) ==
LOC: CARDOPNVT 08:37
PROVIDERS: PCP Family Medicine; Visit Provider Internal Medicine Cardiovascular Disease
DX: I63.9 Cerebral infarction, unspecified (principal)
CPT/HCPCS: 93272

== ENCOUNTER 2022-11-29 18:28 | Observation (INO) | payer MEDICARE, SELFPAY ==
[2022-11-29] VITALS (21 sets, daily range): BP systolic 123–177; BP diastolic 65–108; PULSE 88–107; RESP 15–20; TEMP 36.4–36.8; O2SAT 92–100
--- NOTE | 2022-11-29 19:15 | DI.CT_ITS ---
Exam(s) CT HEAD WO EXAM: CT HEAD WO CLINICAL HISTORY: recent stroke, agitation. TECHNIQUE: Imaging Protocol: Axial computed tomography images with coronal and sagittal reformatted images were created and reviewed COMPARISON: CT CT BRAIN NECK CTA from 10/27/2022 FINDINGS: Ventricles and Extra axial spaces: Normal in size and morphology for the patient's age. Hemorrhage: None. Cerebral parenchyma: There is no evidence of an acute territorial infarct. There are areas of decrea sed attenuation in the white matter consistent with small vessel ischemic disease. There are bilater al old lacunar basal gangliar and the laminae infarct. Midline shift: None. Brainstem/Cerebellum: Normal. Calvarium: Normal. Visualized Paranasal sinuses/Mastoids: There is mild paranasal sinus disease. The mastoid air cells are clear. Soft Tissues: Unremarkable. IMPRESSION: No acute intracranial process. RADIATION DOSE DELIVERED: 722.42mGy.cm Total DLP DATA REPOSITORY: All CT scans at this facility are submitted to the National Radiology Data Registry (NRDR) Dose Index Registry (DIR) with the [employer] (A[employer]). RADIATION OPTIMIZATION: All CT scans at this facility use at least one of these dose optimization te chniques: automated exposure control; mA and/or kV adjustment per patient size (includes targeted exa ms where dose is matched to clinical indication); or iterative reconstruction.
[2022-11-29 19:42] LABS: Abs Immature Grans 0.02 10^3/uL (0.0-0.06); Absolute Basophil Count 0.04 10^3/uL (0.0-0.2); Absolute Eosinophil Count 0.54 10^3/uL (0.0-0.7); Absolute Lymphocyte Count 2.18 10^3/uL (1.2-3.4); Absolute Monocyte Count 0.61 10^3/uL (0.1-0.8); Absolute Neutrophil Count 5.03 10^3/uL (1.2-6.7); Basophils % 0.5; Eosinophils % 6.4; HCT 33.6 % (40.0-50.0); HGB 11.7 g/dL (13.5-17.5); Immature Grans % 0.2; Lymphocytes % 25.9; MCH 29.1 pg (27.0-33.0); MCHC 34.8 % (32.0-36.0); MCV 84 fL (80-95); MPV 9.6 fL (8.0-11.0); Monocytes % 7.2; Neutrophils % 59.8; Platelet Count 352 10^3/uL (130-400); RBC 4.02 10^6/uL (4.36-5.78); RDW 13.5 % (11.8-14.1); RDW-SD 41.5 fL; WBC 8.42 10^3/uL (4.4-10.8)
[2022-11-29 20:03] LABS: ALT 28 U/L (16-63); AST 22 U/L (15-37); Albumin 3.8 g/dL (3.4-5.0); Alkaline Phosphatase 100 U/L (46-116); Anion Gap 11.6 mmol/L (3-11); BUN 26 mg/dL (7-18); Bilirubin, Total 0.3 mg/dL (0.2-1.0); CO2 25.4 mmol/L (21.0-32.0); CREATININE 2.1 mg/dL (0.70-1.30); Calcium 9.7 mg/dL (8.5-10.1); Chloride 101 mmol/L (98-107); Estimated GFR 32.02 (mL/min/1.73m2); Glucose 123 mg/dL (74-106); Magnesium 1.6 mg/dL (1.8-2.4); Potassium 3.2 mmol/L (3.5-5.1); Sodium 138 mmol/L (136-145); TSH (W/Ref FT4) 0.74 uIU/mL (0.36-3.74); Total Protein 8.5 g/dL (6.4-8.2)
[2022-11-29 20:05] LABS: ETHANOL BLOOD < 3.0 mg/dL (<10)
--- NOTE | 2022-11-29 20:18 | DI.VRAD_ITS ---
PROCEDURE INFORMATION: Exam: CT Head Without Contrast Exam date and time: 11/29/2022 7:55 PM Age: 77 years old Clinical indication: Other: Recent stroke, agitation TECHNIQUE: Imaging protocol: Computed tomography of the head without contrast. Radiation optimization: All CT scans at this facility use at least one of these dose optimization techniques: automated exposure control; mA and/or kV adjustment per patient size (includes targeted exams where dose is matched to clinical indication); or iterative reconstruction. COMPARISON: MR BRAIN WO 10/29/2022 11:34 AM FINDINGS: Brain: Chronic ischemic white matter disease. No acute territorial infarct. No acute intracranial hemorrhage. Chronic lacunar infarcts bilateral thalami and left basal ganglia. Cerebral ventricles: No ventriculomegaly. Paranasal sinuses: Visualized sinuses are unremarkable. No fluid levels. Mastoid air cells: Visualized mastoid air cells are well aerated. Bones/joints: Unremarkable. No acute fracture. Soft tissues: Unremarkable. IMPRESSION: No acute intracranial findings. Dictated and Authenticated by: Go Strickland MD. Ordering:DOREEN Nagel MD
--- NOTE | 2022-11-29 20:45 | RT.EKG_ITS ---
APPROVED REPORT Exam: Resting ECG Reason for Exam: electrolyte abnormal Patient Location: E HR:88 bpm ECG Measurements Heart Rate 88 AXIS KS 147 P 27 QRSd 105 QRS -9 QT 384 T -7 QTc 466 Conclusion Sinus rhythm...normal P axis, V-rate 60- 99 sinus rhtym, consider incomplete RBBB, non ischemic
[2022-11-29] MEDS: POTASSIUM CHLORIDE 20 MEQ, POTASSIUM CHLORIDE 10 MEQ 30 MEQ PO (21:05)
[2022-11-29] MEDS: Magnesium Gluconate 500 MG TAB PO (21:05)
[2022-11-29] MEDS: Normal Saline 1,000 ML 1000 ML IV (21:10)
[2022-11-29 21:31] LABS: Source Nasal/Nares
[2022-11-29] MEDS: LORazepam 2 MG/ML VIAL 0.5 MG IVP (21:38)
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
[2022-11-29] MEDS: QUEtiapine 100 MG TAB 150 MG PO (22:04)
[2022-11-29 22:05] LABS: COVID-19 PCR Negative (Negative)
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
[2022-11-30] MEDS: Levothyroxine 100 MCG TAB PO (05:49)
[2022-11-30 07:37] LABS: Anion Gap 9.3 mmol/L (3-11); BUN 21 mg/dL (7-18); CO2 27.7 mmol/L (21.0-32.0); CREATININE 1.6 mg/dL (0.70-1.30); Calcium 9.2 mg/dL (8.5-10.1); Chloride 104 mmol/L (98-107); Estimated GFR 44.38 (mL/min/1.73m2); Glucose 99 mg/dL (74-106); Magnesium 1.6 mg/dL (1.8-2.4); Potassium 3.1 mmol/L (3.5-5.1); Sodium 141 mmol/L (136-145)
[2022-11-30 07:45] VITALS: BP 162/85; PULSE 110; RESP 20; TEMP 36.6; O2SAT 94
[2022-11-30 08:45] LABS: Bilirubin Negative (Negative); Blood Moderate (Negative); Clarity Clear (Clear); Glucose Negative (Negative); Ketones Negative (Negative); Leukocyte Esterase Trace (Negative); Nitrite Negative (Negative); Urobilinogen 0.2 mg/dL (Up to 0.2)
[2022-11-30 08:55] LABS: *AMPHETAMINES SCREEN URINE Negative (Negative); *BARBITURATES SCREEN URINE Negative (Negative); *BENZODIAZEPINES SCREEN URINE Negative (Negative); Cannabinoids THC Negative (Negative); Cocaine Screen,Urine Negative (Negative); METHADONE URINE SCREEN Negative (Negative); OPIATES URINE SCREEN Negative (Negative)
[2022-11-30 08:56] LABS: Tricyclic Antidepressants Negative (Negative)
[2022-11-30 08:57] LABS: Bacteria Few HPF (Negative); C & S Indicated? No; Casts Negative LPF (Negative); Crystals Negative HPF (Negative); Epithelial Cells Few HPF (Negative); Mucus Negative (Negative); RBC 0-2 HPF (0-2)
[2022-11-30] MEDS: Cholecalciferol (Vitamin D3) 1,000 UNIT TAB 2000 UNITS PO (09:32)
[2022-11-30] MEDS: Magnesium Chloride 64 MG TABCR PO ×2 (09:32→21:04)
[2022-11-30] MEDS: Apixaban 5 MG TAB PO ×2 (09:32→21:05)
[2022-11-30] MEDS: Pantoprazole 40 MG TABCR PO (09:32)
[2022-11-30] MEDS: Losartan 50 MG TAB PO (09:32)
[2022-11-30] MEDS: Potassium Chloride Liquid 20 MEQ PKT 40 MEQ PO (09:32)
[2022-11-30] MEDS: amLODIPine 5 MG TAB PO (09:32)
[2022-11-30] MEDS: Aspirin 81 MG CHEW PO (09:32)
[2022-11-30] MEDS: Multivitamin TAB 1 TAB PO (09:32)
[2022-11-30] MEDS: Normal Saline Flush 10 ML SYR IVP (09:33)
[2022-11-30] MEDS: MAGNESIUM SULFATE 2 GM/50 ML BAG IVPB (09:33)
--- NOTE | 2022-11-30 10:16 | PDOC.CMIN ---
- If Service Date Differs Date of service: 11/30/22 Time of Service: 10:16 Care Management Initial Assess REASON FOR HOSPITALIZATION:: dementia with aggressive behavior PAST MEDICAL HISTORY/PAST SURGICAL HISTORY:: All Active Problems (Updated 11/29/22 @ 22:32 by Micah Ferro MD). Discharge planning issues (Acute). Hypothyroidism (Chronic). Dementia with aggressive behavior (Acute). Palliative care encounter (Acute). Advanced care planning/counseling discussion (Acute). Ambulatory dysfunction (Acute). Right sided weakness (Acute). History of multiple strokes (Acute). B12 deficiency anemia (Acute). B12 deficiency (Acute). Atherosclerosis of abdominal aorta (Acute). Aortic dissection, abdominal (Acute). Acute CVA (cerebrovascular accident) (Acute). Aspiration pneumonia (Acute). Dysphagia (Acute). Hypokalemia (Acute). Acute right-sided weakness (Acute). Medical History . CVA (cerebral vascular accident). Surgical History . Surgical history unknown PREVIOUS FUNCTIONAL STATUS/SOCIAL/FAMILY SUPPORTS:: Layton lives in [place], [place] in a mobile home with his daughter Sujatha Jeffers. He recently moved from [place], [place] where he was living with his son Víctor. Jimi suffered a stroke at some time in the past which has left him with residual right sided weakness. He requires assistance with all ADLs, however he can feed himself. CURRENT FUNCTIONAL STATUS:: Jimi was sitting up in a chair when CM met qwith him. He was smiling and engaged easily with CM, however he was very confused. MARCIANO spoke with his daughter Sujatha Jeffers who stated that she thought he might need medication adjustments. MARCIANO discussed the possibility of pursuing a referral to [facility], but since Jimi has shown no aggressive behavior at [facility], that is not indicated at this [facility]. Lynda from Palliative Care met with Jimi and also spoke to Sujatha Jeffers. She has made some recommendations regarding medication adjustments and Ileana indicated that she is willing to bring Jimi home. ADVANCE DIRECTIVES:: none on file Has patient been provided with info about the portal/API?: Yes Did the patient sign up for the portal?: No CODE STATUS:: Full Code INSURANCE COVERAGE / FINANCIAL ISSUES:: Medicare Part A&B CURRENT HOME/COMMUNITY SERVICES/EQUIPMENT:: none PRIMARY CARE PHYSICIAN:: Go Camacho POTENTIAL DISCHARGE NEEDS:: follow up with PCP and plan of care PATIENT/FAMILY EDUCATION NEEDS:: Review of discharge instructions, activity, limitations, follow up plan,. Ask Me Three TRANSPORTATION:: via private vehicle with jordan PLAN:: Jimi will likely be discharged home with no new services. He will follow up with his community providers and plan of care and transport with family. CM will follow and assess for ongoing discharge concerns.
[2022-11-30] MEDS: QUEtiapine 25 MG TAB PO ×2 (11:56→16:35)
[2022-11-30] MEDS: Venlafaxine 50 MG TAB 200 MG PO (12:31)
--- NOTE | 2022-11-30 13:06 | PCNE_ITS ---
Date of service: 11/30/22 Time of Service: 13:06 History of Present Illness Narrative: Mr. Cam is new to this area, he recently moved to his daughter's home in [place], [place]. He has advanced dementia. He became aggressive at home and is now admitted to the hospital. He is a FULL CODE. It is unclear if he has AD or HCA. His daughter is working on obtaining guardianship through the court. Spoke with Aiden Aury- she is working on emergency guardianship through the court. She saw him this morning. He was getting agitated because he wanted to go home. She reports that he has had behaviors in the past. He is taking seroquel 150 mg at HS and he has a 25 mg dose to be used PRN. She has been giving the seroquel 25 mg at 1600. Discussed scheduling the 25 mg tablet at 1600 and adding an additional PRN dose for earlier in the day as needed. Could consider haloperidol for emergency use at home as well. At the time of the visit, Jimi is able to engage in conversation but cannot answer many questions appropriately. He is able to state he is in [facility], he could not tell me he is in the hospital. He did not know the date/time of year. He is able to state that he was born on [birth year] but not the year or where he was born. He was very pleasant, did not appear restless, agitated, aggressive in anyway. Nursing gave him seroquel about 1 1/2 hr ago. He is working with PT, PT recommends SNF. Assessment and Plan Assessment and plan (1) Dementia: Status: Chronic (2) Hypothyroidism: Status: Chronic (3) Advanced care planning/counseling discussion: Status: Acute (4) Ambulatory dysfunction: Status: Acute (5) Right sided weakness: Status: Acute (6) CVA (cerebral vascular accident): (7) Palliative care patient: Status: Acute Assessment and plan: Mr. Cam is a 77 year old man with advanced dementia. He is new to the area. He was living in [place] but recently moved in with his daughter in [place], [place]. He was brought in to the ED after getting agitated and aggressive with his daughter at home. He takes seroquel 150 mg at HS and has a seroquel 25 mg PRN dose that she usually gives at 1600. She reports that he is getting agitated during the day as well. Recommend: Continue seroquel 150 mg at HS and schedule the 25 mg tablet at 1600, also ADD an additional PRN seroquel 25 mg dose for earlier in the day as needed. Could consider haloperidol for emergency use at home as well. PT recommends SNF. His daughter plans to take him home when he is discharged. He remains a FULL CODE. His daughter, Sujatha Jeffers, is working to get emergency guardianship at present. Sujatha Jeffers hopes to change his CODE status to DNR/DNI. She is not aware of any HCA or AD documentation. Follow up with Palliative within the next couple of weeks at home or in the office if he is able. Review of Systems Narrative: unable to provide accurate Hx due to dementia. When questioned if he has pain he states, no. PFSH All Active Problems (Updated 11/30/22 @ 13:46 by Lynda Burns NP) Palliative care patient (Acute) Dementia (Chronic) Discharge planning issues (Acute) Hypothyroidism (Chronic) Dementia with aggressive behavior (Acute) Palliative care encounter (Acute) Advanced care planning/counseling discussion (Acute) Ambulatory dysfunction (Acute) Right sided weakness (Acute) History of multiple strokes (Acute) B12 deficiency anemia (Acute) B12 deficiency (Acute) Atherosclerosis of abdominal aorta (Acute) Aortic dissection, abdominal (Acute) Acute CVA (cerebrovascular accident) (Acute) Aspiration pneumonia (Acute) Dysphagia (Acute) Hypokalemia (Acute) Acute right-sided weakness (Acute) Medical History CVA (cerebral vascular accident) Surgical History Surgical history unknown Family History Other Family history unobtainable due to patient's condition Social History Smoking/Tobacco Use Status: Former Tobacco Use Smoking risk assessment performed?: Yes Alcohol Intake: never Drug use: Never Do you feel safe at home: Yes Do you feel safe in your relationship?: Yes Exam Narrative Exam Narrative: General: very pleasant, elderly man, seen sitting up in the chair in his hospital room. He is awake and alert, engages in the visit but cannot provide answers to most questions. He is oriented to person but cannot state the year he was born, he was able to state he is in [facility] but did not know he was in the hospital. He is not oriented to time or situation. HEENT: atraumatic, EOMI, mmm. Neck: supple, no JVD. Respiratory: respirations appear even and unlabored. Extremities: limited ROM to RUE. Results Last Vital Signs Temp 36.6 C 11/30/22 07:45 Pulse 110 H 11/30/22 07:45 Resp 20 11/30/22 07:45 BP 162/85 H 11/30/22 07:45 Pulse Ox 94 11/30/22 07:45 Labs 11/29/22 19:20 11/30/22 05:45 Labs: Laboratory Results - last 24 hr 11/29/22 11/29/22 11/29/22 19:20 19:20 21:18 WBC 8.42 RBC 4.02 L Hgb 11.7 L Hct 33.6 L MCV 84 MCH 29.1 MCHC 34.8 RDW 13.5 Plt Count 352 MPV 9.6 Immature Gran % 0.2 Neutrophils % 59.8 Lymphocytes % 25.9 Monocytes % 7.2 Eosinophils % 6.4 Basophils % 0.5 Nucleated RBC % 0.0 Absolute Neutrophils 5.03 Absolute Lymphocytes 2.18 Absolute Monocytes 0.61 Absolute Eosinophils 0.54 Absolute Basophils 0.04 Sodium 138 Potassium 3.2 L Chloride 101 Carbon Dioxide 25.4 Anion Gap 11.6 H BUN 26 H Creatinine 2.1 H Est GFR (CKD-EPI 2020) 32.02 Glucose 123 H Calcium 9.7 Magnesium 1.6 L Total Bilirubin 0.3 AST 22 ALT 28 Alkaline Phosphatase 100 Total Protein 8.5 H Albumin 3.8 TSH 0.74 Urine Color Urine Clarity Urine pH Ur Specific [place] Urine Protein Urine Ketones Urine Blood Urine Nitrite Urine Bilirubin Urine Urobilinogen Ur Leukocyte Esterase Urine RBC Urine WBC Ur Epithelial Cells Urine Crystals Urine Bacteria Urine Casts Urine Mucus Ur Culture Indicated? Urine Glucose Urine Opiates Screen Urine Methadone Screen Ur Barbiturates Screen Ur Tricyclics Screen Ur Amphetamines Screen U Benzodiazepines Scrn Urine Cocaine Screen Ur THC Screen Ethyl Alcohol < 3.0 COVID-19 Source Nasal/Nares SARS-CoV-2 (PCR) Negative 11/30/22 11/30/22 11/30/22 05:45 08:14 08:14 WBC RBC Hgb Hct MCV MCH MCHC RDW Plt Count MPV Immature Gran % Neutrophils % Lymphocytes % Monocytes % Eosinophils % Basophils % Nucleated RBC % Absolute Neutrophils Absolute Lymphocytes Absolute Monocytes Absolute Eosinophils Absolute Basophils Sodium 141 Potassium 3.1 L Chloride 104 Carbon Dioxide 27.7 Anion Gap 9.3 BUN 21 H Creatinine 1.6 H Est GFR (CKD-EPI 2020) 44.38 Glucose 99 Calcium 9.2 Magnesium 1.6 L Total Bilirubin AST ALT Alkaline Phosphatase Total Protein Albumin TSH Urine Color Yellow Urine Clarity Clear Urine pH 7.0 Ur Specific [place] 1.020 Urine Protein Negative Urine Ketones Negative Urine Blood Moderate H Urine Nitrite Negative Urine Bilirubin Negative Urine Urobilinogen 0.2 Ur Leukocyte Esterase Trace H Urine RBC 0-2 Urine WBC 3-5 Ur Epithelial Cells Few Urine Crystals Negative Urine Bacteria Few Urine Casts Negative Urine Mucus Negative Ur Culture Indicated? No Urine Glucose Negative Urine Opiates Screen Negative Urine Methadone Screen Negative Ur Barbiturates Screen Negative Ur Tricyclics Screen Negative Ur Amphetamines Screen Negative U Benzodiazepines Scrn Negative Urine Cocaine Screen Negative Ur THC Screen Negative Ethyl Alcohol COVID-19 Source SARS-CoV-2 (PCR)
--- NOTE | 2022-11-30 13:13 | PT.INIE ---
Date of service: 11/30/22 Time of Service: 12:45 PT Notes Visit Reasons: Dementia,Agressive Behavior Inpatient Physical Therapy Evaluation Date: 11/30/2022 Referring Doctor:? Kelsi Mondragon MD PT Orders: PT CONSULT: Eval/Treat Precautions: Expressive aphasia. Fall. Impaired safety awareness. Patient Profile/Admitting Diagnosis:? Patient is a 77-year-old male patient admitted for the management of atherosclerosis of abdominal aorta, hypomagnesemia, hypokalemia, dementia with aggressive behavior, and hypothyroidism. PMHX: All Active Problems?(Updated 11/29/22 @ 22:32 by Micah Ferro MD) Discharge planning issues (Acute) Hypothyroidism (Chronic) Dementia with aggressive behavior (Acute) Palliative care encounter (Acute) Advanced care planning/counseling discussion (Acute) Ambulatory dysfunction (Acute) Right sided weakness (Acute) History of multiple strokes (Acute) B12 deficiency anemia (Acute) B12 deficiency (Acute) Atherosclerosis of abdominal aorta (Acute) Aortic dissection, abdominal (Acute) Acute CVA (cerebrovascular accident) (Acute) Aspiration pneumonia (Acute) Dysphagia (Acute) Hypokalemia (Acute) Acute right-sided weakness (Acute) Medical History? CVA (cerebral vascular accident) Surgical History? Surgical history unknown Social History/Home Situation: Per previous admission notes, patient lives in [place], [place]. Daughter Aiden Branch is invovled with patient's care. Please refer to notes for more information. Equipment Owned/DME: FWW, Subjective:? Agreeable to going for a walk. Understands that it is important to get moving and get better at walking before he can safely go home. Wondering when his daughter is going to come to see him. Denies headache, chest pain, and lightheadedness throughout session. Objective:? General Observation: Seated on bedside chair. IV accesses in B brachium. Mental Status: Patient has expressive aphasi and is unable to accurately verbalize responses. He did say that [facility] is[facility] a [facility] in [facility]. Aware that he had just lunch. Pain: Denies Vital Signs: WNL as closley monitored by nursing staff ROM: Right Upper Extremity: Shoulder Flexion lacks the last 25% of AROM. Shoulder abduction acks the last 25% of AROM. Elbow flexion WFL. Wrist flexion WFL. Functional opening and closing of hand WFL. Left Upper Extremity: Shoulder Flexion WFL. Shoulder abduction WFL. Elbow flexion WFL. Wrist flexion WFL. Functional opening and closing of hand WFL. Right Lower Extremity: Hip flexion lacks the last 25% of AROM. Hip abduction lacks the last 25% of AROM. Knee flexion WFL. Ankle dorsiflexion WFL. Ankle plantarflexion WFL. Left Lower Extremity: Hip flexion WFL. Hip abduction WFL. Knee flexion WFL. Ankle dorsiflexion WFL. Ankle plantarflexion WFL. Strength: Right Upper Extremity: Shoulder flexors 3-/5. Shoulder abductors 3-/5. Elbow flexors 5/5. Elbow extensors 5/5. Missile And Missile Checkout Technician weaker than than the L but functional. Left Upper Extremity: Shoulder flexors 5/5. Shoulder abductors 5/5. Elbow flexors 5/5. Elbow extensors 5/5. Missile And Missile Checkout Technician strong. Right Lower Extremity: Hip flexors 3-/5. Hip abductors 3-/5. Knee flexors 4/5. Knee extensors 3-/5. Ankle dorsiflexors 4-/5. Ankle plantarflexors 4-/5. Left Lower Extremity:Hip flexors 5/5. Hip abductors 5/5. Knee flexors 5/5. Knee extensors 5/5. Ankle dorsiflexors 5/5. Ankle plantarflexors 5/5. Sensation:? Denies numbeness in B LE and UE when asked Bed Mobility/Transfers: Sit to stand contact guard assist Stand to sit contact guard assist Gait:? 100 feet with FWW with CGA. R hemiplegic gait: decreased hip and knee flexion with decreased DF and mild hip hiking on R. MInimal cueing provided for directional changes. SOme path deviation observed. Balance:? Static Sitting: Normal Dynamic Sitting: Normal Static Standing: Fair Dynamic Standing: Fair Special Tests: Mobility Limitations Standardized Measure [facility] 6 clicks Basic Mobility Inpatient Short Form: Raw Score: 18? CMS Score: 47% deficit ? ? 4-stage Balance Test: Able to maintain feet together and semi-tandem stance for 10 seconds but unable to do so with full tandem and one-legged stance. Informed Consent/Education:? Patient was instructed in purpose of PT consult and plan of care. Agreeable to proceed with established PT POC to achieve personal goals. Daughter aware of planned PT evaluation. Assessment:?? 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 May be able to progress mobility level however unsure of whether patient can thrive home alone safely. Discharge to a supervised setting may be needed in order to ensure safety at all times. Patient presents with clinical signs and symptoms consistent with current/admitting diagnoses that have resulted to mobility limitations, gait instability, generalized weakness, and overall ADL decline as demonstrated by the following impairment level findings: 1. Decreased strength to R UE/LE major muscle groups 2. Impaired standing balance 3. Impaired activity tolerance 4. Limitation of joint range of motion in R shoulder and R hip 5. R hemiplegic gait 6. Expressive aphasia Impairments are contributing to the following functional limitations: 1. Difficulty with ambulation without assistive device and physical assistance 2. Increased completion time for mobility ADL performance 3. Increased risk for falls 4. Difficulty with managing steps alone safely Patient is assessed as a [id number] moderate complexity based on the following: History: 77-year-old male with past medical history as indicated above Examination: Demonstrable impairment in strength, balance, and mobility level with underlying impairments and functional limitations as exhibited above as well as deficit score of 47% utilizing the [facility] Mobility Inpatient Short Form Presentation: Evolving Decision Makin moderate complexity Goals: Goals X1 week 1. Supine-Sit independent 2. Sit-Supine independent 3. Sit-Stand independent 4. Stand-Sit independent with FWW 5. Bed-Chair independent with FWW 6. Chair-Bed independent with FWW 7. Supervision gait on level surface with use of FWW for at least 300 feet without report of pain nor dyspnea 8. Good static and dynamic standing balance/tolerance Plan of Care/Treatment Plan: 1-2x/day, 7 days/week x 1 week. Plan of care has been reviewed with the WIND DEVELOPMENT DIRECTOR providing the service under Physical Therapy direction. Initiate Physical Therapy intervention for pain management as needed, strengthening, bed mobility, transfers, gait, stairs, balance training, and use of assistive device. DISCHARGE RECOMMENDATIONS: [] Home with no services [] [] Home with services [specify] [] Home with outpatient PT [] [] SNF for continued rehabilitation [] [] Residential Care [] [] SNF versus LTC based on ability to participate and progress [] [X] Supervised home setting vs. 08/04 care vs. LTC SNF TREATMENT CODE/TIME: 26976 x 27 minutes beginning at 12:45 PM. Thank you for the opportunity to participate in the care of this patient. Daisy German PT, DPT, CLT [facility] [place], [place]
[2022-11-30 15:24] VITALS: BP 136/71; PULSE 70; RESP 16; TEMP 36.3; O2SAT 96
--- NOTE | 2022-11-30 15:26 | W.PM.PROGNOT ---
Date of Service Date of service: 11/30/22 Time of Service: 15:26 Assessment and Plan Assessment and plan (1) Hypothyroidism: Assessment and plan: On 100 mcg levothyroxine. TSH 0.74. Was 5.64 last month. Dosage may need reduction. (2) Palliative care patient: Status: Deleted Assessment and plan: Mr. Cam is a 77 year old man with advanced dementia. He is new to the area. He was living in [place] but recently moved in with his daughter in [place], [place]. He was brought in to the ED after getting agitated and aggressive with his daughter at home. He takes seroquel 150 mg at HS and has a seroquel 25 mg PRN dose that she usually gives at 1600. She reports that he is getting agitated during the day as well. Recommend: Continue seroquel 150 mg at HS and schedule the 25 mg tablet at 1600, also ADD an additional PRN seroquel 25 mg dose for earlier in the day as needed. Could consider haloperidol for emergency use at home as well. PT recommends SNF. His daughter plans to take him home when he is discharged. He remains a FULL CODE. His daughter, Sujatha Jeffers, is working to get emergency guardianship at present. Sujatha Jeffers hopes to change his CODE status to DNR/DNI. She is not aware of any HCA or AD documentation. Follow up with Palliative within the next couple of weeks at home or in the office if he is able. (3) History of multiple strokes: Assessment and plan: with dementia. On Aspirin, statin and apixiban. (4) Atherosclerosis of abdominal aorta: Status: Acute Assessment and plan: On aspirin, Eliquis and statin. (5) Hypomagnesemia: Status: Resolved Assessment and plan: Supplemented in the ED. Cont home dosing. Monitor. (6) Hypokalemia: Status: Resolved Assessment and plan: Supplemented in the ED. Monitor. (7) Dementia with aggressive behavior: Status: Acute Assessment and plan: Not showing aggression while hospitalized. see palliative medication recommendations Will have a sitter if necessary. Minimize disruptions in his night. Minimize invasive procedures. (8) Discharge planning issues: Status: Deleted Assessment and plan: He is a palliative patient and they are consulted, see plan above as documented. anticipate discharge to home tomorrow discussed with DR Mondragon Subjective Subjective Patient reports: no new complaints, tolerating liquids well and tolerating a regular diet Interval history since last seen: no behavioral issues Exam Const General: cooperative and no acute distress Nutritional Appearance: obese Orientation: alert and oriented to person Eyes General: appearance normal, both eyes and all related structures Sclera: sclerae normal Neck Neck: full ROM and no JVD Resp Effort & Inspection: normal respiratory effort Auscultation: clear to auscultation bilaterally Cardio Rate: regular rate Rhythm: regular rhythm Heart Sounds: S1 normal and S2 normal GI Inspection: non-distended and obesity Palpation: soft and nontender Skin General skin exam: no rashes or lesions noted Neuro General: no focal motor deficits Cranial Nerves: facial strength normal Speech: speech normal Extrem General: no pedal edema and no calf tenderness Psych Appearance: grossly normal Affect: normal affect Thought Process: impoverished Objective Last Vital Signs Temp 36.3 C L 11/30/22 15:24 Pulse 70 11/30/22 15:24 Resp 16 11/30/22 15:24 BP 136/71 11/30/22 15:24 Pulse Ox 96 11/30/22 15:24 Laboratory Results - last 24 hr 11/29/22 11/29/22 11/29/22 19:20 19:20 21:18 WBC 8.42 RBC 4.02 L Hgb 11.7 L Hct 33.6 L MCV 84 MCH 29.1 MCHC 34.8 RDW 13.5 Plt Count 352 MPV 9.6 Immature Gran % 0.2 Neutrophils % 59.8 Lymphocytes % 25.9 Monocytes % 7.2 Eosinophils % 6.4 Basophils % 0.5 Nucleated RBC % 0.0 Absolute Neutrophils 5.03 Absolute Lymphocytes 2.18 Absolute Monocytes 0.61 Absolute Eosinophils 0.54 Absolute Basophils 0.04 Sodium 138 Potassium 3.2 L Chloride 101 Carbon Dioxide 25.4 Anion Gap 11.6 H BUN 26 H Creatinine 2.1 H Est GFR (CKD-EPI 2020) 32.02 Glucose 123 H Calcium 9.7 Magnesium 1.6 L Total Bilirubin 0.3 AST 22 ALT 28 Alkaline Phosphatase 100 Total Protein 8.5 H Albumin 3.8 TSH 0.74 Urine Color Urine Clarity Urine pH Ur Specific [place] Urine Protein Urine Ketones Urine Blood Urine Nitrite Urine Bilirubin Urine Urobilinogen Ur Leukocyte Esterase Urine RBC Urine WBC Ur Epithelial Cells Urine Crystals Urine Bacteria Urine Casts Urine Mucus Ur Culture Indicated? Urine Glucose Urine Opiates Screen Urine Methadone Screen Ur Barbiturates Screen Ur Tricyclics Screen Ur Amphetamines Screen U Benzodiazepines Scrn Urine Cocaine Screen Ur THC Screen Ethyl Alcohol < 3.0 COVID-19 Source Nasal/Nares SARS-CoV-2 (PCR) Negative 11/30/22 11/30/22 11/30/22 05:45 08:14 08:14 WBC RBC Hgb Hct MCV MCH MCHC RDW Plt Count MPV Immature Gran % Neutrophils % Lymphocytes % Monocytes % Eosinophils % Basophils % Nucleated RBC % Absolute Neutrophils Absolute Lymphocytes Absolute Monocytes Absolute Eosinophils Absolute Basophils Sodium 141 Potassium 3.1 L Chloride 104 Carbon Dioxide 27.7 Anion Gap 9.3 BUN 21 H Creatinine 1.6 H Est GFR (CKD-EPI 2020) 44.38 Glucose 99 Calcium 9.2 Magnesium 1.6 L Total Bilirubin AST ALT Alkaline Phosphatase Total Protein Albumin TSH Urine Color Yellow Urine Clarity Clear Urine pH 7.0 Ur Specific [place] 1.020 Urine Protein Negative Urine Ketones Negative Urine Blood Moderate H Urine Nitrite Negative Urine Bilirubin Negative Urine Urobilinogen 0.2 Ur Leukocyte Esterase Trace H Urine RBC 0-2 Urine WBC 3-5 Ur Epithelial Cells Few Urine Crystals Negative Urine Bacteria Few Urine Casts Negative Urine Mucus Negative Ur Culture Indicated? No Urine Glucose Negative Urine Opiates Screen Negative Urine Methadone Screen Negative Ur Barbiturates Screen Negative Ur Tricyclics Screen Negative Ur Amphetamines Screen Negative U Benzodiazepines Scrn Negative Urine Cocaine Screen Negative Ur THC Screen Negative Ethyl Alcohol COVID-19 Source SARS-CoV-2 (PCR) PAWSS Have you Been Recently Intoxicated or Drunk Within the Last 30 days?: Unable to Obtain Have you Ever Experienced Previous Episodes of Alcohol Withdrawal?: Unable to Obtain Have you ever Experienced Withdrawal Seizures?: Unable to Obtain Have you ever Experienced Delirium Tremens(DT)s?: Unable to Obtain Have you ever undergone Alcohol Rehabilitation Treatment (i.e, inpt ot outpatient treatment programs)?: Unable to Obtain Have you ever Experienced Blackouts?: Unable to Obtain Have you ever Combined Alcohol with other Downers within the last 90 days?: Unable to Obtain Have you ever Combined Alcohol with any other Substance of Abuse during the last 90 days?: Unable to Obtain Positive Blood Alcohol level on Presentation? [PCS.BAL]: Unable to Obtain Evidence of Increased Autonomic Activity (i.e. HR>120, tremor, sweating, agitation, nausea)?: Unable to Obtain Time Spent with Patient Time Spent with Patient: 25-34 minutes Time was spent: preparing to see the patient(eg.review tests), ordering medications,tests, procedures, referring, communicating with other health childcare director and care coordination
[2022-11-30] MEDS: Atorvastatin 40 MG TAB 80 MG PO (21:04)
[2022-11-30] MEDS: QUEtiapine 50 MG TAB 150 MG PO (21:04)
[2022-11-30] MEDS: Venlafaxine 75 MG TAB 150 MG PO (21:05)
[2022-11-30 23:13] VITALS: BP 118/65; PULSE 65; RESP 19; TEMP 36; O2SAT 93
[2022-12-01] MEDS: Levothyroxine 100 MCG TAB PO (05:23)
[2022-12-01 07:07] LABS: Anion Gap 7.2 mmol/L (3-11); BUN 25 mg/dL (7-18); CO2 28.8 mmol/L (21.0-32.0); CREATININE 1.5 mg/dL (0.70-1.30); Calcium 8.9 mg/dL (8.5-10.1); Chloride 103 mmol/L (98-107); Estimated GFR 47.95 (mL/min/1.73m2); Glucose 98 mg/dL (74-106); Magnesium 1.8 mg/dL (1.8-2.4); Potassium 3.5 mmol/L (3.5-5.1); Sodium 139 mmol/L (136-145)
[2022-12-01 07:27] VITALS: BP 129/63; PULSE 91; RESP 16; TEMP 36.2; O2SAT 98
[2022-12-01] MEDS: Venlafaxine 50 MG TAB 200 MG PO (08:51)
[2022-12-01] MEDS: Cholecalciferol (Vitamin D3) 1,000 UNIT TAB 2000 UNITS PO (08:51)
[2022-12-01] MEDS: Pantoprazole 40 MG TABCR PO (08:52)
[2022-12-01] MEDS: Magnesium Chloride 64 MG TABCR PO (08:52)
[2022-12-01] MEDS: Aspirin 81 MG CHEW PO (08:52)
[2022-12-01] MEDS: amLODIPine 5 MG TAB PO (08:52)
[2022-12-01] MEDS: Apixaban 5 MG TAB PO (08:52)
[2022-12-01] MEDS: Losartan 50 MG TAB PO (08:52)
[2022-12-01] MEDS: QUEtiapine 25 MG TAB PO (08:53)
[2022-12-01] MEDS: Multivitamin TAB 1 TAB PO (08:54)
[2022-12-01] MEDS: Haloperidol 5 MG TAB PO (10:05)
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
[2022-12-01] MEDS: QUEtiapine 50 MG TAB PO (10:31)
--- NOTE | 2022-12-01 10:45 | NUR.NOTE ---
Addendum entered by Desiree Lynn RN 12/01/22 11:01: Daughter at bedside now for discharge. Reviewed discharge paperwork with daughter. Patient taken downstairs in wheelchair for dc by family. Original Note: Patient alert to self only. Agitated and difficult to redirect. Attempting to leave. Dressed himself and looking for exit. PRN seroquel given this am with little effect. Charge nurse made aware. Additional orders received from provider for one time dose of haldol, and seroquel. Little effect. Daughter
--- NOTE | 2022-12-01 16:39 | PDOC.CMDIS ---
- If Service Date Differs Date of service: 12/01/22 Time of Service: 16:39 LACE Index Scoring Tool - Questions: Length of Stay (in days): 2 Acuity (Admit via E.D.?): Yes Comorbidities: Cerebrovascular Disease E.D. Visits: 2 - Answers: Total Score: 8 Risk of Readmission: Low Risk Care Management Discharge Reason for Hospitalization: dementia with aggressive behavior Discharge Plan: Jimi will be discharged home with no new services. He will follow up with his community providers and plan of care and transport with family. Patient/Family Education Needs: Review of discharge instructions, activity, limitations, follow up plan,. Ask Me Three
--- NOTE | 2022-12-04 09:15 | PT.INDS ---
Date of service: 11/30/22 PT Notes Visit Reasons: Dementia,Agressive Behavior Inpatient Physical Therapy Discharge Summary Date: 11/30/2022 Dates of Service: 11/30/2022 only This is a clinical summary of care provided for the duration of dates listed above. No charge was made in the completion of this documentation. Referring Doctor:? Kelsi Mondragon,? PT Orders: PT CONSULT: Eval/Treat Precautions: Expressive aphasia.? Fall.? Impaired safety awareness. Patient Profile/Admitting Diagnosis:? Patient is a 77-year-old male patient admitted for the management of atherosclerosis of abdominal aorta,? hypomagnesemia,? hypokalemia,? dementia with aggressive behavior,? and hypothyroidism. PMHX: All Active Problems?(Updated 11/29/22 @ 22:32 by Micah Ferro MD) Discharge planning issues (Acute) Hypothyroidism (Chronic) Dementia with aggressive behavior (Acute) Palliative care encounter (Acute) Advanced care planning/counseling discussion (Acute) Ambulatory dysfunction (Acute) Right sided weakness (Acute) History of multiple strokes (Acute) B12 deficiency anemia (Acute) B12 deficiency (Acute) Atherosclerosis of abdominal aorta (Acute) Aortic dissection, abdominal (Acute) Acute CVA (cerebrovascular accident) (Acute) Aspiration pneumonia (Acute) Dysphagia (Acute) Hypokalemia (Acute) Acute right-sided weakness (Acute) Medical History? CVA (cerebral vascular accident) Surgical History? Surgical history unknown Social History/Home Situation: Per previous admission notes,? patient lives in [place], [place].? Daughter Aiden Branch is invovled with patient's care.? Please refer to CM notes for more information. Equipment Owned/DME: FWW, SPC Subjective:? NT. See most recent ENGINEERING ADMINISTRATOR notes. Objective:? General Observation: NT. See most recent ENGINEERING ADMINISTRATOR notes. Mental Status: NT. See most recent ENGINEERING ADMINISTRATOR notes. Pain: NT. See most recent ENGINEERING ADMINISTRATOR notes. Vital Signs: NT. See most recent ENGINEERING ADMINISTRATOR notes. ROM: Right Upper Extremity: ? Shoulder Flexion lacks the last 25% of AROM. Shoulder abduction acks the last 25% of AROM. Elbow flexion WFL. Wrist flexion WFL. Functional opening and closing of hand WFL. Left Upper Extremity:? Shoulder Flexion WFL. Shoulder abduction WFL. Elbow flexion WFL. Wrist flexion WFL. Functional opening and closing of hand WFL. Right Lower Extremity: Hip flexion lacks the last 25% of AROM. Hip abduction lacks the last 25% of AROM. Knee flexion WFL. Ankle dorsiflexion WFL. Ankle plantarflexion WFL. Left Lower Extremity: Hip flexion WFL. Hip abduction WFL. Knee flexion WFL. Ankle dorsiflexion WFL. Ankle plantarflexion WFL. Strength: Right Upper Extremity: Shoulder flexors 3-/5. Shoulder abductors 3-/5. Elbow flexors 5/5. Elbow extensors 5/5. Energy Infrastructure Engineer weaker than than the L but functional. Left Upper Extremity: Shoulder flexors 5/5. Shoulder abductors 5/5. Elbow flexors 5/5. Elbow extensors 5/5. Energy Infrastructure Engineer strong. Right Lower Extremity: Hip flexors 3-/5. Hip abductors 3-/5. Knee flexors 4/5. Knee extensors 3-/5. Ankle dorsiflexors 4-/5. Ankle plantarflexors 4-/5. Left Lower Extremity:Hip flexors 5/5. Hip abductors 5/5. Knee flexors 5/5. Knee extensors 5/5. Ankle dorsiflexors 5/5. Ankle plantarflexors 5/5. Sensation:? Denies numbeness in B LE and UE when asked Bed Mobility/Transfers: Sit to stand?contact guard assist Stand to sit?contact guard assist Gait:? 100 feet with FWW with CGA.? R hemiplegic gait: decreased hip and knee flexion with decreased DF and mild? hip hiking on R.? MInimal cueing provided for directional changes.? SOme path deviation observed. Balance:? Static Sitting: Normal Dynamic Sitting: Normal Static Standing: Fair Dynamic Standing: Fair Special Tests: Mobility Limitations Standardized Measure [facility] 6 clicks Basic Mobility Inpatient Short Form: Raw Score: 18? CMS Score: 47% deficit ? ? 4-stage Balance Test:? Able to maintain feet together and semi-tandem stance for 10 seconds but unable to do so with full tandem and one-legged stance. Assessment:?? Patient is a 77-year-old male with expressive aphasia from previous CVAs who is admitted for the management of atherosclerosis of abdominal aorta,? hypomagnesemia,? hypokalemia,? dementia with agressive behavior,? and hypothyroidism.? May be able to progress mobility level however unsure of whether patient can thrive home alone safely.? Discharge to a supervised setting may be needed in order to ensure safety at all times.? Patient presents with clinical signs and symptoms consistent with current/admitting diagnoses that have resulted to mobility limitations, gait instability, generalized weakness, and overall ADL decline as demonstrated by the following impairment level findings: 1.? Decreased strength to R UE/LE major muscle groups 2.? Impaired standing balance 3.? Impaired activity tolerance 4.? Limitation of joint range of motion in R shoulder and R hip 5.? R hemiplegic gait 6.? Expressive aphasia Impairments are contributing to the following functional limitations: 1.? Difficulty with ambulation without assistive device and physical assistance 2. Increased completion time for mobility ADL performance 3.? Increased risk for falls 4.? Difficulty with managing steps alone safely Goals: Goals X1 week 1. Supine-Sit independent MET 2. Sit-Supine independent MET 3. Sit-Stand independent NOT MET 4. Stand-Sit independent with FWW NOT MET 5. Bed-Chair independent with FWW NOT MET 6. Chair-Bed independent with FWW NOT MET 7. Supervision gait on level surface with use of FWW for at least 300 feet without report of pain nor dyspnea NOT MET 8. Good static and dynamic standing balance/tolerance NOT MET DISCHARGE RECOMMENDATIONS: [] ? Home with no services [] [] ? Home with services [specify] [] ? Home with outpatient PT [] [] ? SNF for continued rehabilitation [] [] ? [facility] Service Attendant Care [] [] ? SNF versus LTC based on ability to participate and progress [] [X]? Supervised home setting vs. 08/04 care vs. LTC SNF TREATMENT CODE/TIME: NV Thank you for the opportunity to participate in the care of this patient. Daisy German PT, DPT, CLT [facility] [place], [place]
== END 2022-12-01 10:40 | disposition home or self-care (01) ==
LOC: ER 21:55 → MS 22:25
PROVIDERS: Internal Medicine; Admitting Provider Family Medicine; Emergency Provider Physician Assistant; PCP Family Medicine; Visit Provider Family Medicine
DX: F03.911 Unspecified dementia, unspecified severity, with agitation (principal); Z79.01 Long term (current) use of anticoagulants; Z79.899 Other long term (current) drug therapy; Z86.73 Personal history of transient ischemic attack (TIA), and cerebral infarction without residual deficits; R13.10 Dysphagia, unspecified; E87.6 Hypokalemia; E83.42 Hypomagnesemia; E53.8 Deficiency of other specified B group vitamins; I70.0 Atherosclerosis of aorta; E03.9 Hypothyroidism, unspecified; Z20.822 Contact with and (suspected) exposure to COVID-19
CPT/HCPCS: 36415; 80048; 80053; 80307; 87635; 93005; 96361; 96365; 96366; 96374; 97162; 99285; 70450; 80320; 81003; 81015; 83735; 84443; 85025; 93010; 99222; 99232; 99239; G0378; J2060

== ENCOUNTER → 2022-12-10 10:07 | Outpatient (BNVA) | payer MEDICARE, SELFPAY | PROVIDERS: PCP Family Medicine; Referring Provider Family Medicine; Visit Provider Psychiatry & Neurology Neurology | DX: I69.351 Hemiplegia and hemiparesis following cerebral infarction affecting right dominant side (principal); I69.322 Dysarthria following cerebral infarction; I69.320 Aphasia following cerebral infarction; Z79.82 Long term (current) use of aspirin; Z79.02 Long term (current) use of antithrombotics/antiplatelets; F03.918 Unspecified dementia, unspecified severity, with other behavioral disturbance; I71.02 Dissection of abdominal aorta; I70.0 Atherosclerosis of aorta | CPT/HCPCS: 99215 ==

== ENCOUNTER 2023-03-10 17:19 | Inpatient (IN) | payer MEDICARE, SELFPAY ==
[2023-03-10] VITALS (54 sets, daily range): BP systolic 137–153; BP diastolic 48–80; PULSE 81–95; RESP 15–31; TEMP 37; O2SAT 92–99
--- NOTE | 2023-03-10 17:15 | RT.EKG_ITS ---
APPROVED REPORT Exam: Resting ECG Reason for Exam: SOB Patient Location: E HR:71 bpm ECG Measurements Heart Rate 71 AXIS TN 145 P 27 QRSd 103 QRS 26 QT 405 T 37 QTc 440 Conclusion Sinus rhythm...normal P axis, V-rate 60- 99
--- NOTE | 2023-03-10 17:15 | DI.RAD_ITS ---
Exam(s) XR PORTABLE CHEST AP EXAM: XR PORTABLE CHEST AP CLINICAL HISTORY: SOB TECHNIQUE: 2D digital imaging was performed of the chest. One image was obtained. An AP view was ob tained. COMPARISON: CR,XR XR CHEST 1V IN DI DEPT from 10/27/2022 FINDINGS: There is poor inspiration. MEDIASTINUM: Normal. HEART: Within normal limits given the AP projection. PULMONARY VASCULATURE: There is mild prominence of the pulmonary vasculature with increased interstit ial lung markings. LUNGS: No focal consolidating infiltrates. PLEURAL SPACE: No pleural effusion or pneumothorax. BONE:Within normal limits for the patient's age. OTHER FINDINGS:Normal. IMPRESSION: Findings which may represent a pulmonary edema and pulmonary venous congestion. Please correlate cli nically. DATA REPOSITORY: RADIATION DOSE DELIVERED:
--- NOTE | 2023-03-10 17:32 | ED.GENADUL_ITS ---
Discharge Plan Disposition Patient Disposition: Admit to [facility] Condition: Fair Discharge Details Clinical Impression: New onset of congestive heart failure, Anemia Admit Date/Time: 03/10/23 20:30 Admit Provider: Eligio Norman Attending Provider: Eligio Norman Primary Care Provider: Go Camacho ED Provider: Robina Blue Discharge Data Discharge Date/Time-TO BE ENTERED AT DEPARTURE: 03/10/23 23:47 Medical Decision Making 77-year-old male with medical history of dementia, aortic dissection, CVA, COPD and CHF, dysphagia, CVA cholesterol hypertension presents to the ER with a chief complaint of shortness of breath and increased pedal edema. Daughter states that she noticed a worsening elevation since being home from the hospital and a recent stay at [facility]. He does have dementia presents bilaterally at the bases. He does appear anxious. Daughter by his daughter. Josemarlene he does have a history of aspiration pneumonia. Cardiac work-up including serial troponins, proBNP chest x-ray. Differential diagnosis includes pneumonia, CHF exacerbation.Aspiration. CBC shows anemia hemoglobin 8.9 hemoglobin was 1160, sodium 141 potassium 1.0 chloride 103 BUN 29 creatinine 136 glucose 112 initial troponin within normal limits proBNP slightly elevated at 832 We will give 20 mg of Lasix IV. Patient agitated, Lorazepam 0.5mg IV ordered. Negative stool hemoccult. An additional 0.5mg or Lorazepam ordered, staffing associate placed patient on 2L O2 nc for patient comfort. Patient was discharged from [facility] yesterday who was there for a month stay. She does report that the confusion and agitation has worsened. He was also given olanzapine and trazodone which are new medications. 193: Spoke with hospitalist Dr. Norman regarding patient case in details he agrees to come evaluate patient in the ER for new onset CHF and anemia. 1944: Multiple staff at bedside patient is attempting to get out of the bed, he does not or agitation, an additional 1 mg of lorazepam given IV. Patient placed in four-point soft restraints to all limbs. Daughter is at bedside and Dr. Norman the hospitalist is also at bedside for patient eval. Dr. Norman agreed to accept patient for admission. Awaiting transport to bed on floor. Dr. Norman requested Benadryl, Haldol, and Ativan. This was given by staffing branch manager. This text was generated using Nuance dictation system, please disregard any oddities of phrase or misspellings. Medical Records Medical records reviewed: Yes I reviewed the patient's medical records. Imaging Data Radiologic Study: Imaging: X-Ray Radiologist's impression: TECHNIQUE: Imaging protocol: Radiologic exam of the chest. Views: 1 view. COMPARISON: CT CHEST/ABD/PEL W 10/30/2022 11:46 AM FINDINGS: Lungs: There is pulmonary venous congestion. There is diffuse interstitial edema. Underlying inflammatory or infectious process not excluded. Pleural spaces: There is no evidence of pleural effusions. No evidence of pneumothorax. Heart/Mediastinum: The heart is enlarged. There is prominence of the mediastinum. Vasculature: The aorta demonstrates moderate atherosclerotic calcification. Bones/joints: The skeletal structures and soft tissues show no evidence of fracture or other acute processes. Soft tissues: The soft tissues of the extrathoracic region are unremarkable. IMPRESSION: Probable congestive heart failure. Underlying inflammatory or infectious process not excluded. Thank you for allowing us to participate in the care of your patient. Dictated and Authenticated by: Estuardo Lindsey MD Lab Data Lab results reviewed: Yes I reviewed the patient's lab results. Labs: Laboratory Tests Range/Units 03/10/23 03/10/23 17:27 17:27 WBC (4.4-10.8) 10^3/uL 6.68 RBC (4.36-5.78) 10^6/uL 3.17 L Hgb (13.5-17.5) g/dL 8.9 L Hct (40.0-50.0) % 27.8 L MCV (80-95) fL 88 MCH (27.0-33.0) pg 28.1 MCHC (32.0-36.0) % 32.0 RDW (11.8-14.1) % 13.9 Plt Count (130-400) 10^3/uL 292 MPV (8.0-11.0) fL 9.9 Immature Gran % 0.7 Neutrophils % 58.9 Lymphocytes % 21.4 Monocytes % 11.4 Eosinophils % 7.0 Basophils % 0.6 Nucleated RBC % (0.0-0.3) % 0.0 Absolute Neutrophils (1.2-6.7) 10^3/uL 3.93 Absolute Lymphocytes (1.2-3.4) 10^3/uL 1.43 Absolute Monocytes (0.1-0.8) 10^3/uL 0.76 Absolute Eosinophils (0.0-0.7) 10^3/uL 0.47 Absolute Basophils (0.0-0.2) 10^3/uL 0.04 Sodium (136-145) mmol/L 141 Potassium (3.5-5.1) mmol/L 4.0 Chloride (98-107) mmol/L 108 H Carbon Dioxide (21.0-32.0) mmol/L 26.4 Anion Gap (3-11) mmol/L 6.6 BUN (7-18) mg/dL 29 H Creatinine (0.70-1.30) mg/dL 1.3 Est GFR (CKD-EPI 2020) (mL/min/1.73m2) 56.93 Glucose (74-106) mg/dL 112 H Calcium (8.5-10.1) mg/dL 8.5 Magnesium (1.8-2.4) mg/dL 1.8 Total Bilirubin (0.2-1.0) mg/dL 0.2 AST (15-37) U/L 17 ALT (16-63) U/L 25 Alkaline Phosphatase (46-116) U/L 81 Troponin I (<or=60) ng/L < 50 NT-Pro-B Natriuret Pep (<300) pg/mL 832 H Total Protein (6.4-8.2) g/dL 7.6 Albumin (3.4-5.0) g/dL 3.0 L HPI General Mode of arrival: EMS . Date/Time Provider Initiated Documentation: 03/10/23 17:23 . Limitations to Documentation: no limitations . Information obtained by: patient, family (Daughter), RN notes reviewed and old records reviewed . HPI Narrative: 77-year-old male with medical history of dementia, aortic dissection, CVA, COPD and CHF, dysphagia, CVA cholesterol hypertension presents to the ER with a chief complaint of shortness of breath and increased pedal edema. Daughter states that she noticed a worsening elevation since being home from the hospital and a recent stay at [facility]. He does have dementia presents bilaterally at the bases. He does appear anxious. Daughter by his daughter. Maci he does have a history of aspiration pneumonia. Related Data Home Medications Medication Instructions Recorded Confirmed amlodipine 5 mg tablet (Norvasc) 5 mg PO DAILY 03/10/23 03/11/23 apixaban 5 mg tablet (Eliquis) 5 mg PO BID 03/10/23 03/11/23 aspirin 81 mg chewable tablet 81 mg PO QDAY 03/10/23 03/10/23 (Aspirin Childrens) atorvastatin 80 mg tablet See Rx Instructions .Route .COMPLEX 03/10/23 03/10/23 divalproex 125 mg capsule,delayed 375 mg PO BID 03/10/23 03/11/23 release sprinkle (Depakote Sprinkles) donepezil 5 mg tablet (Aricept) 5 mg PO HS 03/10/23 03/11/23 ferrous sulfate 325 mg (65 mg 325 mg PO 1XD 03/10/23 03/10/23 iron) tablet (FeroSul) gabapentin 100 mg capsule 200 mg PO TID 03/10/23 03/10/23 (Neurontin) levothyroxine 88 mcg tablet 88 mcg PO QDAY 03/10/23 03/10/23 (Synthroid) losartan 25 mg tablet (Cozaar) 25 mg PO DAILY 03/10/23 03/10/23 magnesium chloride 64 mg 64 mg PO QDAY 03/10/23 03/10/23 (magnesium chloride) tablet,delayed release (Mag 64) melatonin 3 mg tablet 3 mg PO HS PRN 03/10/23 03/10/23 olanzapine 5 mg tablet (Zyprexa) 5 mg PO HS 03/10/23 03/11/23 pantoprazole 40 mg tablet,delayed 40 mg PO QDAY 03/10/23 03/10/23 release (Protonix) polyethylene glycol 3350 17 gram 17 g PO DAILY 03/10/23 03/10/23 oral powder packet (Miralax) trazodone 50 mg tablet 50 mg PO HS 03/10/23 03/10/23 Allergies Allergy/AdvReac Type Severity Reaction Status Date / Time No Known Allergies Allergy Unverified 03/10/23 17:24 General Stated Complaint: SOB HARDEEP: 3 Review of Systems All systems reviewed & are unremarkable except as noted in HPI and below Constitutional Constitutional: Reports as per HPI Cardiovascular Cardiovascular: Denies chest pain, Reports pedal edema and Reports dyspnea Respiratory Respiratory: Reports cough and Reports dyspnea PFSH All Active Problems (Updated 03/10/23 @ 20:34 by Robina Blue NP) New onset of congestive heart failure (Acute) Anemia (Chronic) Agitation (Acute) Financial insecurity (Acute) Caregiver stress (Acute) Advanced care planning/counseling discussion (Acute) Dementia with behavioral disturbance (Acute) Palliative care encounter (Acute) Right sided weakness (Acute) B12 deficiency (Acute) Atherosclerosis of abdominal aorta (Acute) Aortic dissection, abdominal (Acute) Acute CVA (cerebrovascular accident) (Acute) Dysphagia (Acute) Medical History CVA (cerebral vascular accident) History of multiple strokes Hypothyroidism Surgical History No pertinent past surgical history Family History Other Diabetes Hyperlipidemia Social History Smoking/Tobacco Use Status: Former Tobacco Use Smoking risk assessment performed?: Yes Alcohol Intake: never Drug use: Never Household members: children Number of Children: 2 What is your relationship status?: Panel score (0-1 are the most socially isolated patients): 0 Do you feel safe at home: Yes Do you feel safe in your relationship?: Yes Exam Narrative Exam Narrative: Constitutional: Alert and oriented x2. Appears stated age. Normal body habitus. Does appear chronically ill. Head: Normocephalic, no trauma. Eyes: Pupils PERRL, Red reflex noted, EOM's intact. Eyelids symmetrical without lesions, discharge, or swelling. ENT: Bilateral TM's WNL, External ear normal to inspection, no mastoid TTP, swelling, or erythema, Nasal turbinates WNL, no nasal discharge. Normal dentition, Posterior pharynx WNL, no exudate. Chest: RRR, Normal S1, S2, distal pulses intact. Resp: Bilateral crackles to the bases. Diminished, Abdomen: Soft, non-distended, Normoactive bowel sounds all 4 quads. Musculoskeletal: Unable to assess gait 5/5 strength to all four extremities. 2+ pitting edema noted to bilateral feet ankles. Skin: No suspicious rashes or lesions. Capillary refill less than 2 sec. Neurologic: Cranial nerves II-XII intact. Alert and oriented x 2. Motor: No deficits noted. Sensory: Intact bilaterally all 4 extremities. Reflexes: DTR's intact bilaterally.. Hematologic/Lymphatic: No ecchymosis, no lymphadenopathy. Course Vital Signs Vital signs: Vital Signs Temperature 37.0 C 03/10/23 17:18 Pulse 81 03/10/23 17:18 Respiratory Rate 20 03/10/23 17:18 Blood Pressure 137/48 L 03/10/23 17:18 Pulse Oximetry 97 03/10/23 17:18 Temperature 37.0 C 03/10/23 17:18 Temperature Source Skin 03/10/23 17:18 Pulse 81 03/10/23 17:18 Respiratory Rate 20 03/10/23 17:18 Respiratory Effort Normal 03/10/23 17:25 Blood Pressure 137/48 L 03/10/23 17:18 Blood Pressure Position Sitting 03/10/23 17:18 Pulse Oximetry 97 03/10/23 17:18 Oxygen Delivery Method Room Air 03/10/23 17:18 Oxygen Flow Rate 0 03/10/23 17:18 Procedures Stool Hemoccult Procedural Steps Taken: stool placed in appropriate test area, developer placed on stool and control areas and controls appropriately positive and negative Hemoccult result: negative Restraint Face to Face Time of Face to Face Face to Face: Time of Face to Face: 19:46 Patient's Immediate Situation Requiring Restraints/Seclusion: Harm to Patient Patient Response to Restraints: Remains Agitated and Restless Patient's Medical & Behavioral Condition: Hx of Dementia with psychosis, attempting to get out of bed, grabbing at staff, and urinating on floor. Need for Continuation of Restraints Has Been Assessed: Restraints Continued
[2023-03-10 17:49] LABS: Abs Immature Grans 0.05 10^3/uL (0.0-0.06); Absolute Basophil Count 0.04 10^3/uL (0.0-0.2); Absolute Eosinophil Count 0.47 10^3/uL (0.0-0.7); Absolute Lymphocyte Count 1.43 10^3/uL (1.2-3.4); Absolute Monocyte Count 0.76 10^3/uL (0.1-0.8); Absolute Neutrophil Count 3.93 10^3/uL (1.2-6.7); Basophils % 0.6; HCT 27.8 % (40.0-50.0); HGB 8.9 g/dL (13.5-17.5); Immature Grans % 0.7; Lymphocytes % 21.4; MCH 28.1 pg (27.0-33.0); MCV 88 fL (80-95); MPV 9.9 fL (8.0-11.0); Monocytes % 11.4; Neutrophils % 58.9; Platelet Count 292 10^3/uL (130-400); RBC 3.17 10^6/uL (4.36-5.78); RDW 13.9 % (11.8-14.1); RDW-SD 44.4 fL; WBC 6.68 10^3/uL (4.4-10.8)
[2023-03-10 18:07] LABS: ALT 25 U/L (16-63); AST 17 U/L (15-37); Alkaline Phosphatase 81 U/L (46-116); Anion Gap 6.6 mmol/L (3-11); BUN 29 mg/dL (7-18); Bilirubin, Total 0.2 mg/dL (0.2-1.0); CO2 26.4 mmol/L (21.0-32.0); CREATININE 1.3 mg/dL (0.70-1.30); Calcium 8.5 mg/dL (8.5-10.1); Chloride 108 mmol/L (98-107); Estimated GFR 56.93 (mL/min/1.73m2); Glucose 112 mg/dL (74-106); Magnesium 1.8 mg/dL (1.8-2.4); NT-proBNP 832 pg/mL (<300); Sodium 141 mmol/L (136-145); Total Protein 7.6 g/dL (6.4-8.2); Troponin I < 50 ng/L (<or=60)
[2023-03-10] MEDS: Furosemide 20 MG/2 ML VIAL IVP (18:29)
--- NOTE | 2023-03-10 18:32 | DI.VRAD_ITS ---
PROCEDURE INFORMATION: Exam: XR Chest Exam date and time: 03/10/2023 6:12 PM Age: 77 years old Clinical indication: Shortness of breath TECHNIQUE: Imaging protocol: Radiologic exam of the chest. Views: 1 view. COMPARISON: CT CHEST/ABD/PEL W 10/30/2022 11:46 AM FINDINGS: Lungs: There is pulmonary venous congestion. There is diffuse interstitial edema. Underlying inflammatory or infectious process not excluded. Pleural spaces: There is no evidence of pleural effusions. No evidence of pneumothorax. Heart/Mediastinum: The heart is enlarged. There is prominence of the mediastinum. Vasculature: The aorta demonstrates moderate atherosclerotic calcification. Bones/joints: The skeletal structures and soft tissues show no evidence of fracture or other acute processes. Soft tissues: The soft tissues of the extrathoracic region are unremarkable. IMPRESSION: Probable congestive heart failure. Underlying inflammatory or infectious process not excluded. Dictated and Authenticated by: Estuardo Lindsey MD. Ordering:ZEN Quarles MD
[2023-03-10] MEDS: LORazepam 2 MG/ML VIAL 0.5 MG IVP ×3 (18:38→19:40)
--- NOTE | 2023-03-10 18:38 | NUR.NOTE ---
pt attempting to get out of bed. family at bedside currently. pt also grabbing at this RNs breasts and asking will you go to bed with me?. pt has been made aware behavior is not appropriate. Pts daughter apologetic.
[2023-03-10] MEDS: Haloperidol 5 MG/ML VIAL (20:05)
[2023-03-10] MEDS: diphenhydrAMINE 50 MG/ML VIAL (20:10)
--- NOTE | 2023-03-10 20:12 | W.PM.HP.N ---
Date of service: 03/10/23 Time of Service: 20:12 Assessment and Plan Assessment and plan (1) Agitation: Status: Acute Assessment and plan: Agitation. Sounds like exacerbation of known problem, unclear why worse at present. Recent change in regimen may be playing a role. No acute medical issue evident but will check U/A, TSH and UDS. For now will give additional 2 mg Ativan, 5 Haldol (there is report from daughter that he did not do well with Haldol, but this sounds more like he didn't respond and was not any sort of drug reaction, and review of hospital records indicates he got 5 mg in November without incident), and 50 Benadryl. Anemia: acute on chronic. patient on both ASA and DOAC though no bleeding oidentified at present. Will check retics, B12 and folate and trend. Will hold ASA/DOAC overnight until situation clarifies. CHF, new onset? appears mild. Will hold further Lasix and check ECHO. Code Status: per recent palliative note is DNR History of Present Illness History of Present Illness Chief Complaint: restlessness Narrative: 77 male with h/o dementia and agitation, previously on regimen of Seroquel, Ativan and SNRI. Recently in [facility] [place] and all meds changed and sent home yesterday. Daughter brings him in today fro what she describes as restlessness; additionally she notes some swelling feet. Here in ER findings of note for unrevealing vital signs and O2 sat 97% RA. Patient has been agitated and restless and has not responded as of yet to Ativan 2 mg in divided doses. Labs of note for Hct 27.8 (baseline 33) with heme neg stool;BNP 832 (no prior), CXR probable CHF (to my read only modestly off baseline); normal EKG and negative troponin. Patient given 20 Lasix and has been having large incontinent output. I was asked to evaluate for admission. Patient unable to give any history, daughter confirms above details. Review of Systems Narrative: unable due to mental status PFSH All Active Problems (Updated 03/10/23 @ 20:23 by Eligio Norman MD) Agitation (Acute) Financial insecurity (Acute) Caregiver stress (Acute) Advanced care planning/counseling discussion (Acute) Dementia with behavioral disturbance (Acute) Palliative care encounter (Acute) Right sided weakness (Acute) B12 deficiency (Acute) Atherosclerosis of abdominal aorta (Acute) Aortic dissection, abdominal (Acute) Acute CVA (cerebrovascular accident) (Acute) Dysphagia (Acute) Medical History CVA (cerebral vascular accident) History of multiple strokes Hypothyroidism Surgical History No pertinent past surgical history Family History Other Diabetes Hyperlipidemia Social History Smoking/Tobacco Use Status: Former Tobacco Use Smoking risk assessment performed?: Yes Alcohol Intake: never Drug use: Never Household members: children Number of Children: 2 What is your relationship status?: Panel score (0-1 are the most socially isolated patients): 0 Do you feel safe at home: Yes Do you feel safe in your relationship?: Yes Meds Allergies and Home Medications Allergies Allergy/AdvReac Type Severity Reaction Status Date / Time No Known Allergies Allergy Unverified 03/10/23 17:24 Home Medications Medication Instructions Recorded Confirmed Type amlodipine 5 mg tablet 5 mg PO DAILY 10/27/22 03/07/23 History aspirin 81 mg tablet 81 mg PO DAILY 10/27/22 03/07/23 History atorvastatin 80 mg tablet 80 mg PO QAM 10/27/22 03/07/23 History cholecalciferol (vitamin D3) 50 50 mcg PO DAILY 10/27/22 03/07/23 History mcg (2,000 unit) tablet (Vitamin D3) levothyroxine 100 mcg capsule 100 mcg PO DAILY AM 10/27/22 03/07/23 History losartan 50 mg tablet 50 mg PO QAM 10/27/22 03/07/23 History magnesium 1 tab PO DAILY 10/27/22 03/07/23 History multivitamin 1 tab PO QAM 10/27/22 03/07/23 History pantoprazole 40 mg tablet,delayed 40 mg PO DAILY 10/27/22 03/07/23 History release quetiapine 150 mg tablet 150 mg PO QHS 10/27/22 03/07/23 History venlafaxine 100 mg tablet 150 mg PO HS 10/27/22 03/07/23 History venlafaxine 100 mg tablet 200 mg PO QAM 10/27/22 03/07/23 History cyanocobalamin (vitamin B-12) 500 1,000 mcg PO DAILY #0 tabs 10/30/22 03/07/23 Rx mcg tablet (Vitamin B-12) ipratropium 0.5 mg-albuterol 3 mg 3 ml UPD Q4H PRN PRN #0 mL 10/30/22 03/07/23 Rx (2.5 mg base)/3 mL nebulization soln magnesium chloride 64 mg 64 mg PO BID #0 tabs 10/30/22 03/07/23 Rx (magnesium chloride) tablet,delayed release (Mag 64) apixaban 5 mg tablet (Eliquis) 5 mg PO BID #180 tabs 12/10/22 03/07/23 Rx lorazepam 0.5 mg tablet 0.5 mg PO DAILY PRN 12/10/22 03/07/23 History quetiapine 25 mg tablet 25 mg PO .am and noon #90 tabs 12/10/22 03/07/23 Rx Exam Narrative Exam Narrative: 137/48, 81, 37.0, 28, 97% RA. HEENT atraumatic; pupils 4 mm/reactive; neck supple; lungs grossly clear anterior exam; heart RRR; abdomen soft and NT; extremities trace pedal edema; neuro agitated, non-verbal, moves all 4s, toes downgoing Results Labs 03/10/23 17:27 03/10/23 17:27 Labs: Laboratory Results - last 24 hr 03/10/23 03/10/23 17:27 17:27 WBC 6.68 RBC 3.17 L Hgb 8.9 L Hct 27.8 L MCV 88 MCH 28.1 MCHC 32.0 RDW 13.9 Plt Count 292 MPV 9.9 Immature Gran % 0.7 Neutrophils % 58.9 Lymphocytes % 21.4 Monocytes % 11.4 Eosinophils % 7.0 Basophils % 0.6 Nucleated RBC % 0.0 Absolute Neutrophils 3.93 Absolute Lymphocytes 1.43 Absolute Monocytes 0.76 Absolute Eosinophils 0.47 Absolute Basophils 0.04 Sodium 141 Potassium 4.0 Chloride 108 H Carbon Dioxide 26.4 Anion Gap 6.6 BUN 29 H Creatinine 1.3 Est GFR (CKD-EPI 2020) 56.93 Glucose 112 H Calcium 8.5 Magnesium 1.8 Total Bilirubin 0.2 AST 17 ALT 25 Alkaline Phosphatase 81 Troponin I < 50 NT-Pro-B Natriuret Pep 832 H Total Protein 7.6 Albumin 3.0 L Last Vital Signs Temp 37.0 C 03/10/23 17:18 Pulse 81 03/10/23 17:18 Resp 28 H 03/10/23 17:31 BP 137/48 L 03/10/23 17:18 Pulse Ox 97 03/10/23 17:18 Time Spent Time spent with Patient: 55-74 minutes Time was spent: preparing to see the patient(eg.review tests), obtaining and/or reviewing separately otained hiistory, ordering medications,tests, procedures, referring, communicating with other health pharmacy customer care specialist and indepentently interpreting results
[2023-03-10 20:52] LABS: Reticulocyte 2.2 % (0.5-2.4)
--- NOTE | 2023-03-10 21:24 | NUR.NOTE ---
Nursing Note: Late entry Upon receiving the pt family at bedside and the pt was attempting to get OOB, trying to hit staff, would not follow any commands. Pt was incont of urine, family stated that he was discharged [facility], he had been there for a month. according to staff at [facility] the pt had been violent and very combative and numerous attempts to get out of the unit. The staff had him on a 1:1 sitter due to his combative behaviour. The staff also stated the family felt his care was not sufficient and requested to take him home. Staff advised the family that he has been violent with staff and other pts and felt concerned the family would need assistance at home. The daughter states she brought her father to the ED due to edema in bilateral legs. when asked how he behaved at home she repiled, 'my boyfriend delt with that The pt was being medicated with trazodone and ativan at [facility] and had not received his dose of ativan since arriving home yesterday. The pt has been incont of urine in large amounts requiring brief and full bed changes every 20 min. The hospitalist was made aware the pt was not able to calm down and that he was incont of urine and a sample at the time was unable to be obtained The pt was medicated with .5mg Ativan prior to my assuming care of the pt with no results oon his behaviour. the pt was aggressive and attempting to hit staff and climb out of the bed, the family member was unable to control his actions, MD notified the pt was extremely agitated and restless and unsafe behaviour. Meds ordered and given with no results and the pt remained combative and attempting to hit staff and climb out of his bed. the pt was then medicated with Ativan, Haldol and Benadryl, at that time the pt was continued to be incont of urine in large amounts, MD stated no need for a olmos and to try to get a urine sample with a urinal. the pt has not been still for that sample. The pt was placed in soft restraints at 1999 due to safety of staff and the pt from self harm. Trial released attempted numerous times with no positive results. Numerous staff in the room during restraints, pt continued to fight with staff. Pt was placed on 4L NC due to decreased spo2, pt still agitated at this time. Daughter brought med list and stated that they had been started at the [facility] and many of his other meds were changed or discontinued.
[2023-03-10 21:31] LABS: Folate > 20.0 ng/mL (8.6-20.0); TSH 1.07 uIU/mL (0.36-3.74); Vitamin B12 525 pg/mL (193-986)
--- NOTE | 2023-03-10 22:09 | NUR.NOTE ---
Nursing Note: pt no change in behaviour, pulling at restraints, pt grunting. incont 3 morre times or large amount of urine. groin red and rash noted to scrotum
[2023-03-11] VITALS (69 sets, daily range): BP systolic 106–160; BP diastolic 55–119; PULSE 60–102; RESP 13–34; TEMP 36.8–37.2; O2SAT 87–98
[2023-03-11] MEDS: LORazepam 2 MG/ML VIAL IVP (01:07)
[2023-03-11] MEDS: OLANZapine 10 MG VIAL 5 MG IM ×3 (02:28→19:13)
[2023-03-11 07:02] LABS: HCT 31.2 % (40.0-50.0); HGB 10.1 g/dL (13.5-17.5); MCH 28.1 pg (27.0-33.0); MCHC 32.4 % (32.0-36.0); MCV 87 fL (80-95); MPV 10.5 fL (8.0-11.0); Platelet Count 313 10^3/uL (130-400); RBC 3.59 10^6/uL (4.36-5.78); RDW 13.8 % (11.8-14.1); RDW-SD 43.4 fL; WBC 9.67 10^3/uL (4.4-10.8)
[2023-03-11 07:07] LABS: *AMPHETAMINES SCREEN URINE Negative (Negative); *BARBITURATES SCREEN URINE Negative (Negative); *BENZODIAZEPINES SCREEN URINE Negative (Negative); Cannabinoids THC Negative (Negative); Cocaine Screen,Urine Negative (Negative); METHADONE URINE SCREEN Negative (Negative); OPIATES URINE SCREEN Negative (Negative)
[2023-03-11 07:11] LABS: Tricyclic Antidepressants Negative (Negative)
[2023-03-11 07:14] LABS: BUN 24 mg/dL (7-18); CREATININE 1.2 mg/dL (0.70-1.30); Calcium 8.8 mg/dL (8.5-10.1); Chloride 103 mmol/L (98-107); Estimated GFR 62.67 (mL/min/1.73m2); Glucose 119 mg/dL (74-106); Potassium 3.5 mmol/L (3.5-5.1); Sodium 140 mmol/L (136-145)
[2023-03-11 07:31] LABS: Bilirubin Negative (Negative); Blood Trace-intact (Negative); Clarity Clear (Clear); Glucose Negative (Negative); Ketones Negative (Negative); Leukocyte Esterase Negative (Negative); Nitrite Negative (Negative); Specific Gravity 1.015 (1.005-1.025); Urobilinogen 0.2 mg/dL (Up to 0.2); pH 7.5 (5-8)
[2023-03-11 07:49] LABS: Bacteria Negative HPF (Negative); C & S Indicated? No; Casts Negative LPF (Negative); Crystals Negative HPF (Negative); Epithelial Cells Rare HPF (Negative); Mucus Negative (Negative)
--- NOTE | 2023-03-11 08:27 | INITIAL_ITS ---
Date of service: 03/11/23 Time of Service: 08:27 Care Management Initial Assmt Initial Assessment REASON FOR HOSPITALIZATION:: agitation PREVIOUS FUNCTIONAL STATUS/SOCIAL/FAMILY SUPPORTS:: Layton lives in [place], [place] in a mobile home with his daughter Sujatha Jeffers. He recently moved from [place], [place] where he was living with his son Víctor. Jimi suffered a stroke at some time in the past which has left him with residual right sided weakness. He requires assistance with all ADLs, however he can feed himself. He has been at [facility] for the past 6 weeks and was only discharged on Saturday. CURRENT FUNCTIONAL STATUS:: Jimi was lying in bed in the ICU when CM met with him and his daughter. He was very confused and has been agitated since his discharge from [facility]. Aiden Jeffers stated that she brought him to [facility] because his ankles were swollen. No major medical problems have been identified. CM contacted [facility] today to see if they would consider readmission and a formal referral was sent. ADVANCE DIRECTIVES:: none on file Has patient been provided with info about the portal/API?: Yes Did the patient sign up for the portal?: No CODE STATUS:: DNR/DNI INSURANCE COVERAGE / FINANCIAL ISSUES:: medicare CURRENT HOME/COMMUNITY SERVICES/EQUIPMENT:: none PRIMARY CARE PHYSICIAN:: Go Camacho POTENTIAL DISCHARGE NEEDS:: follow up with PCP and plan of care PATIENT/FAMILY EDUCATION NEEDS:: Review of discharge instructions, activity, limitations, follow up plan,. Ask Me Three TRANSPORTATION:: to be determined by disposition PLAN:: Jimi will likely be discharged home with no new services if he does not return to [facility]. He will follow up with his community providers and plan of care and transport with family. CM will follow and assess for ongoing discharge concerns. PFSH All Active Problems (Updated 03/10/23 @ 20:34 by Robina Blue NP) New onset of congestive heart failure (Acute) Anemia (Chronic) Agitation (Acute) Financial insecurity (Acute) Caregiver stress (Acute) Advanced care planning/counseling discussion (Acute) Dementia with behavioral disturbance (Acute) Palliative care encounter (Acute) Right sided weakness (Acute) B12 deficiency (Acute) Atherosclerosis of abdominal aorta (Acute) Aortic dissection, abdominal (Acute) Acute CVA (cerebrovascular accident) (Acute) Dysphagia (Acute) Medical History CVA (cerebral vascular accident) History of multiple strokes Hypothyroidism Surgical History No pertinent past surgical history Family History Other Diabetes Hyperlipidemia Social History Smoking/Tobacco Use Status: Former Tobacco Use Smoking risk assessment performed?: Yes Alcohol Intake: never Drug use: Never Household members: children Number of Children: 2 What is your relationship status?: Panel score (0-1 are the most socially isolated patients): 0 Do you feel safe at home: Yes Do you feel safe in your relationship?: Yes
[2023-03-11] MEDS: Water,Injection,Sterile 10 ML VIAL (09:27)
[2023-03-11 15:17] LABS: WBC Negative HPF (0-5)
--- NOTE | 2023-03-11 15:36 | W.PM.PROGNOT ---
Date of Service Date of service: 03/11/23 Time of Service: 15:36 Assessment and Plan Assessment and plan (1) Agitation: Status: Acute Assessment and plan: Agitation. Sounds like exacerbation of known problem, unclear why worse at present. Recent change in regimen may be playing a role. No acute medical issue evident: neg UA and UDS. In the ED given total of 4mg ativan, 5mg Haldol, 50 Benadryl. Will check retics, B12 and folate and trend. Will hold ASA/DOAC overnight until situation clarifies. Code Status: per recent palliative note is DNR (2) Dementia with behavioral disturbance: Status: Acute Assessment and plan: S/P 6 week admission at [facility]. Discharged on Zyprexa, Depakote and Trazadone. Now restless, lethargic; likely residual from medications administered in the ED. Will restart home meds when able to safely swallow. (3) History of multiple strokes: Assessment and plan: Previous history. No evidence of acute CVA. (4) Anemia: Status: Chronic Assessment and plan: Anemia: acute on chronic. patient on both ASA and DOAC though no bleeding identified at present Normal retic Stable. Subjective Subjective Patient reports: afebrile; denies diarrhea or vomiting Interval history since last seen: Restless. In soft restraints. Exam Narrative Exam Narrative: HEENT atraumatic, sclera clear, pupil equal/reactive. Neck: moves spontnaeously. Lungs: Clear. Nonlabored breathing. CV: RRR Abd: soft, ND. Exts: No pedal edema. No erythema, swollen joints. Psych: confused, disoriented. restless. Will answer yes/no Objective Last Vital Signs Temp 36.8 C 03/11/23 10:14 Pulse 76 03/11/23 12:09 Resp 14 03/11/23 12:40 BP 109/55 L 03/11/23 12:09 Pulse Ox 93 03/11/23 12:40 Laboratory Results - last 24 hr 03/10/23 03/10/23 03/10/23 17:27 17:27 17:27 WBC 6.68 RBC 3.17 L Hgb 8.9 L Hct 27.8 L MCV 88 MCH 28.1 MCHC 32.0 RDW 13.9 Plt Count 292 MPV 9.9 Reticulocyte % (Auto) Immature Gran % 0.7 Neutrophils % 58.9 Lymphocytes % 21.4 Monocytes % 11.4 Eosinophils % 7.0 Basophils % 0.6 Nucleated RBC % 0.0 Absolute Neutrophils 3.93 Absolute Lymphocytes 1.43 Absolute Monocytes 0.76 Absolute Eosinophils 0.47 Absolute Basophils 0.04 Sodium 141 Potassium 4.0 Chloride 108 H Carbon Dioxide 26.4 Anion Gap 6.6 BUN 29 H Creatinine 1.3 Est GFR (CKD-EPI 2020) 56.93 Glucose 112 H Calcium 8.5 Magnesium 1.8 Total Bilirubin 0.2 AST 17 ALT 25 Alkaline Phosphatase 81 Troponin I < 50 NT-Pro-B Natriuret Pep 832 H Total Protein 7.6 Albumin 3.0 L Vitamin B12 525 Folate TSH 1.07 Urine Color Urine Clarity Urine pH Ur Specific [place] Urine Protein Urine Ketones Urine Blood Urine Nitrite Urine Bilirubin Urine Urobilinogen Ur Leukocyte Esterase Urine RBC Urine WBC Ur Epithelial Cells Urine Crystals Urine Bacteria Urine Casts Urine Mucus Ur Culture Indicated? Urine Glucose Urine Opiates Screen Urine Methadone Screen Ur Barbiturates Screen Ur Tricyclics Screen Ur Amphetamines Screen U Benzodiazepines Scrn Urine Cocaine Screen Ur THC Screen 03/10/23 03/10/23 03/10/23 17:27 17:27 20:23 WBC RBC Hgb Hct MCV MCH MCHC RDW Plt Count MPV Reticulocyte % (Auto) 2.2 Immature Gran % Neutrophils % Lymphocytes % Monocytes % Eosinophils % Basophils % Nucleated RBC % Absolute Neutrophils Absolute Lymphocytes Absolute Monocytes Absolute Eosinophils Absolute Basophils Sodium Potassium Chloride Carbon Dioxide Anion Gap BUN Creatinine Est GFR (CKD-EPI 2020) Glucose Calcium Magnesium Total Bilirubin AST ALT Alkaline Phosphatase Troponin I Cancelled NT-Pro-B Natriuret Pep Total Protein Albumin Vitamin B12 Folate > 20.0 H TSH Urine Color Urine Clarity Urine pH Ur Specific [place] Urine Protein Urine Ketones Urine Blood Urine Nitrite Urine Bilirubin Urine Urobilinogen Ur Leukocyte Esterase Urine RBC Urine WBC Ur Epithelial Cells Urine Crystals Urine Bacteria Urine Casts Urine Mucus Ur Culture Indicated? Urine Glucose Urine Opiates Screen Urine Methadone Screen Ur Barbiturates Screen Ur Tricyclics Screen Ur Amphetamines Screen U Benzodiazepines Scrn Urine Cocaine Screen Ur THC Screen 03/11/23 03/11/23 03/11/23 05:32 05:32 05:35 WBC 9.67 RBC 3.59 L Hgb 10.1 L Hct 31.2 L MCV 87 MCH 28.1 MCHC 32.4 RDW 13.8 Plt Count 313 MPV 10.5 Reticulocyte % (Auto) Immature Gran % Neutrophils % Lymphocytes % Monocytes % Eosinophils % Basophils % Nucleated RBC % Absolute Neutrophils Absolute Lymphocytes Absolute Monocytes Absolute Eosinophils Absolute Basophils Sodium 140 Potassium 3.5 Chloride 103 Carbon Dioxide 28.0 Anion Gap 9.0 BUN 24 H Creatinine 1.2 Est GFR (CKD-EPI 2020) 62.67 Glucose 119 H Calcium 8.8 Magnesium Total Bilirubin AST ALT Alkaline Phosphatase Troponin I NT-Pro-B Natriuret Pep Total Protein Albumin Vitamin B12 Folate TSH Urine Color Urine Clarity Urine pH Ur Specific [place] Urine Protein Urine Ketones Urine Blood Urine Nitrite Urine Bilirubin Urine Urobilinogen Ur Leukocyte Esterase Urine RBC Urine WBC Ur Epithelial Cells Urine Crystals Urine Bacteria Urine Casts Urine Mucus Ur Culture Indicated? Urine Glucose Urine Opiates Screen Negative Urine Methadone Screen Negative Ur Barbiturates Screen Negative Ur Tricyclics Screen Negative Ur Amphetamines Screen Negative U Benzodiazepines Scrn Negative Urine Cocaine Screen Negative Ur THC Screen Negative 03/11/23 05:35 WBC RBC Hgb Hct MCV MCH MCHC RDW Plt Count MPV Reticulocyte % (Auto) Immature Gran % Neutrophils % Lymphocytes % Monocytes % Eosinophils % Basophils % Nucleated RBC % Absolute Neutrophils Absolute Lymphocytes Absolute Monocytes Absolute Eosinophils Absolute Basophils Sodium Potassium Chloride Carbon Dioxide Anion Gap BUN Creatinine Est GFR (CKD-EPI 2020) Glucose Calcium Magnesium Total Bilirubin AST ALT Alkaline Phosphatase Troponin I NT-Pro-B Natriuret Pep Total Protein Albumin Vitamin B12 Folate TSH Urine Color Straw Urine Clarity Clear Urine pH 7.5 Ur Specific [place] 1.015 Urine Protein Negative Urine Ketones Negative Urine Blood Trace-intact H Urine Nitrite Negative Urine Bilirubin Negative Urine Urobilinogen 0.2 Ur Leukocyte Esterase Negative Urine RBC 3-5 H Urine WBC Negative Ur Epithelial Cells Rare Urine Crystals Negative Urine Bacteria Negative Urine Casts Negative Urine Mucus Negative Ur Culture Indicated? No Urine Glucose Negative Urine Opiates Screen Urine Methadone Screen Ur Barbiturates Screen Ur Tricyclics Screen Ur Amphetamines Screen U Benzodiazepines Scrn Urine Cocaine Screen Ur THC Screen Time Spent with Patient Time Spent with Patient: 25-34 minutes Time was spent: preparing to see the patient(eg.review tests), obtaining and/or reviewing separately otained hiistory, ordering medications,tests, procedures, referring, communicating with other health ocular care technician and indepentently interpreting results
--- NOTE | 2023-03-11 16:43 | NUR.NOTE ---
Patient has been restless for most of the day. Patient has been off restraints for most of the day as well with a nurse in the room. Patient has tried to get out of bed without restraints, nurse remained in the room for the day. Patient has been up to chair and back to bed multiple times with two person max assist and a gait belt. Family visited patient today as well. Patient was unable to swallow water this morning so no PO meds were given throughout the day. Provider made aware. Per family, patient eats pureed food with thickened liquids. New order was placed for dinner at this time.
[2023-03-11] MEDS: Divalproex 125 MG SPRINKLE 375 MG PO (19:13)
[2023-03-11] MEDS: Gabapentin 100 MG CAP 200 MG PO (19:13)
[2023-03-11] MEDS: Atorvastatin 40 MG TAB 80 MG PO (19:13)
[2023-03-11] MEDS: Normal Saline 10 ML VIAL IJ (19:14)
[2023-03-11] MEDS: Normal Saline Flush 10 ML SYR IVP (19:15)
[2023-03-11] MEDS: OLANZapine 5 MG TAB PO (21:06)
[2023-03-11] MEDS: traZODone 50 MG TAB PO (21:06)
[2023-03-11] MEDS: Zolpidem 5 MG TAB PO (23:14)
[2023-03-12] VITALS (29 sets, daily range): BP systolic 137–163; BP diastolic 41–126; PULSE 81–100; RESP 16–31; TEMP 36.6–37.1; O2SAT 85–96
--- NOTE | 2023-03-12 | DI.CT_ITS ---
Exam(s) CT HEAD - STROKE PROTOCOL EXAM: CT HEAD - STROKE PROTOCOL CLINICAL HISTORY: hx of CVA, admitted w/ agitation dementia. TECHNIQUE: Imaging Protocol: Axial computed tomography images with coronal and sagittal reformatted images were created and reviewed COMPARISON: CT CT HEAD WO from 11/29/2022 FINDINGS: The exam is limited by motion artifact on the upper slices. ventricles and Extra axial spaces: Normal in size and morphology for the patient's age. Hemorrhage: None. Cerebral parenchyma: No evidence of acute infarct or mass. Stable atrophy and white matter changes o f small vessel disease. Stable appearance of left-sided lacunar infarcts in the left basal ganglia. Midline shift: None. Brainstem/Cerebellum: Normal. Calvarium: Normal. Visualized Paranasal sinuses/Mastoids: Clear. Soft Tissues: Unremarkable. IMPRESSION: No acute intracranial process. RADIATION DOSE DELIVERED: 790.18mGy.cm Total DLP DATA REPOSITORY: All CT scans at this facility are submitted to the National Radiology Data Registry (NRDR) Dose Index Registry (DIR) with the [employer] (ACR). RADIATION OPTIMIZATION: All CT scans at this facility use at least one of these dose optimization te chniques: automated exposure control; mA and/or kV adjustment per patient size (includes targeted exa ms where dose is matched to clinical indication); or iterative reconstruction.
[2023-03-12] MEDS: diphenhydrAMINE 50 MG/ML VIAL IVP (01:00)
[2023-03-12] MEDS: Normal Saline Flush 10 ML SYR IVP ×3 (01:12→19:50)
[2023-03-12] MEDS: Haloperidol 5 MG/ML VIAL ×2 (02:03→05:01)
[2023-03-12] MEDS: LORazepam 2 MG/ML VIAL (05:44)
[2023-03-12 06:28] LABS: Anion Gap 10.6 mmol/L (3-11); BUN 23 mg/dL (7-18); CO2 24.4 mmol/L (21.0-32.0); CREATININE 1.2 mg/dL (0.70-1.30); Calcium 9.3 mg/dL (8.5-10.1); Chloride 104 mmol/L (98-107); Estimated GFR 62.67 (mL/min/1.73m2); Glucose 136 mg/dL (74-106); Potassium 3.8 mmol/L (3.5-5.1); Sodium 139 mmol/L (136-145)
--- NOTE | 2023-03-12 08:30 | PDOC.CMPRO ---
Date of service: 03/12/23 Time of Service: 08:30 Care Management Progress Note Progress Note Text Progress Note Text: S/O:Jimi was lying in bed when CM met with him. He was extremely restless and had been very agitated. He has been in physical restraints much of the day because he has been trying to pull out IVs and has been lashing out at staff. He also received IV Haldol and Ativan during the night. CM met with Sujatha Jeffers, his daughter today. [facility] has indicated that they may be willing to have Jimi return, but must have a conversation with Sujatha Jeffers first. She indicated to CM that she is not sure she wishes to pursue that option. She also informed CM that she does not want Jimi to go to a SNF. She requested help with getting a hospital bed and plans to have him come home when medically cleared. A: Jimi is a 77 year old man admitted on 03/10/23 with agitation and anemia P: Jimi will likely be discharged home with no new services if he does not return to [facility]. He will follow up with his community providers and plan of care and transport with family. CM will follow and assess for ongoing discharge concerns.
[2023-03-12] MEDS: Divalproex 125 MG SPRINKLE 375 MG PO (09:10)
[2023-03-12] MEDS: Aspirin 81 MG CHEW PO (09:11)
[2023-03-12] MEDS: Water,Injection,Sterile 10 ML VIAL ×2 (09:11→19:48)
[2023-03-12] MEDS: Losartan 25 MG TAB PO (09:11)
[2023-03-12] MEDS: Apixaban 5 MG TAB PO ×2 (09:11→19:49)
[2023-03-12] MEDS: Gabapentin 100 MG CAP 200 MG PO ×2 (09:11→19:49)
[2023-03-12] MEDS: amLODIPine 5 MG TAB PO (09:11)
[2023-03-12] MEDS: OLANZapine 10 MG VIAL 5 MG IM (09:33)
--- NOTE | 2023-03-12 10:55 | W.PM.PROGNOT ---
Date of Service Date of service: 03/12/23 Time of Service: 10:56 Assessment and Plan Assessment and plan (1) Dementia with behavioral disturbance: Status: Acute Assessment and plan: S/P 6 week admission at [facility]. Discharged on Zyprexa, Depakote and Trazadone. As the patient was discharged home after [address] [facility], and he was home less than 48hr, I am skeptical that his agitation was adequately controlled when he left. I could try to increase his Zyprexa dose but he is already getting Zyprexa 5 mg BID prn in addition to his nightly dose. I will dc his Zyprexa, trazadone and put him on Geodon. Also since the ativan was not controlling the acute agitation, I will try a longer acting benzodiazepine, valium. JI doubt that he has been getting adequate dose of his depakote. I will check valproic acid level and if subtherapeutic, consider parenteral form of depakote for mood stabilization. Professional time spent interviewing and examining patient, discussion of goals of care with hospital team (care management, nursing and consulting professionals) was 45 minutes. (2) History of multiple strokes: Assessment and plan: Previous history. No evidence of acute CVA. However, I would consider rescanning his head in light of his worsening behavior. No CT was done on admission. I will get noncontrast CT of his head. (3) Anemia: Status: Chronic Assessment and plan: Anemia: acute on chronic. patient on both ASA and DOAC though no bleeding identified at present Normal retic Stable. Subjective Subjective Interval history since last seen: Patient continues to exhibit severe agitation and delirium. Patient has required soft wrist restraints to prevent him from pulling out his iv's or hitting staff or climbing out of bed. He has required 1:1 nursing. Despite being on scheduled and prn dosing of Zyprexa (5 mg IM bid prn and 5 mg scheduled at night) this has not helped w/ his agitation. He also has had problems w/ not taking his meds orally. Nursing indicates that his pills have to be crushed and mixed w/ pudding/apple sauce but half drools out of his mouth. No visible choking spells. I have requested TRIMMING MACHINE SET UP OPERATOR consult. CM has made referrals back to [facility], the geriatric psychiatry inpatient center at [facility]. Nursing reports that his daughter indicated that he previously was better controlled w/ his former regimen of Seroquel XL 150 mg at night and Seroquel 25 mg twice a day. However despite this regimen he ended up at [facility] d/t severe agiation and dementia. Seroquel does not come in a parenteral form therefore this would not be a viable option at present. Ativan does not seem to calm him down. He is also suppose to be on Trazadone at [facility] as well as a mood stabilizer, depakote. However, w/ his inconsistent oral intake he is not reliably getting his meds into his system. Exam Narrative Exam Narrative: Very restless, moving about the bed pulling at his restraints, he is not oriented Lungs: clear anteriorly Heart: RRR Abdomen; soft, nondistended Extremities: no edema, cyanosis Objective Last Vital Signs Temp 36.7 C 03/12/23 07:52 Pulse 92 H 03/12/23 07:34 Resp 24 03/12/23 06:00 BP 163/66 H 03/12/23 07:34 Pulse Ox 96 03/12/23 07:34 Laboratory Results - last 24 hr 03/11/23 03/12/23 05:35 06:02 Sodium 139 Potassium 3.8 Chloride 104 Carbon Dioxide 24.4 Anion Gap 10.6 BUN 23 H Creatinine 1.2 Est GFR (CKD-EPI 2020) 62.67 Glucose 136 H Calcium 9.3 Urine RBC 3-5 H Urine WBC Negative Time Spent with Patient Time Spent with Patient: 35-49 minutes Time was spent: preparing to see the patient(eg.review tests), ordering medications,tests, procedures, referring, communicating with other health director career, indepentently interpreting results and care coordination
--- NOTE | 2023-03-12 11:34 | STREC_ITS ---
Date of service: 03/12/23 Time of Service: 11:34 Speech Therapy Recommendations Report ST Recommendations: AUTOMOTIVE UPHOLSTERER Communication / Non-Treatment Note Consult order received for Cognitive/Communication and Swallow function; chart reviewed. AUTOMOTIVE UPHOLSTERER spoke with patient's RN, re: current patient status, reason for consult ie increased high choke risk/aspiration risk in setting of dementia w increased agitation/behaviors, COPD, probable CHF per recent Chest XRay. HPI / Background Mr. Cam is a 77-year-old gentleman (DNR/DNI) with a history of recurrent strokes resulting in vascular dementia with significant behavioral d isturbance, communication difficulty (likely receptive aphasia in addition to some expressive aphasia), mild/moderate right-sided hemiparesis, hx of CVA, COPD, CHF, cholesterol HTN, recurrent falls, dysphagia (hx aspiration pna), and chronic aortic dissection who recently moved to [place] to live with his daughter Aiden Branch.? Palliative care team has been following to help with symptoms, as well as give additional support to family; patient had been at [facility] for past 6 weeks and was only recently discharged home as of Saturday. Patient was admitted to [facility] ICU 03/10 after presenting to the ER with a chief complaint of shortness of breath and increased pedal edema, daughter reported increased restlessness/anxiety, some swelling in feet. Interval History: O2 sat 97% RA. Patient has been agitated and restless and has not responded as of yet to Ativan 2 mg in divided doses. Labs of note for Hct 27.8 (baseline 33) with heme neg stool;BNP 832 (no prior), CXR probable CHF; normal EKG and negative troponin. Patient given 20 Lasix and has been having large incontinent output. Per MD, patient had been discharged from [facility] on Zyprexa, Depakote and Trazadone; current symptoms likely residual from medications administered in the ED, with plan to restart home meds when able to safely swallow.? Nursing report via phone: Patient is very non-cooperative including acceptance of any PO at this time, currently 2:1 given behaviors this date. Per chart review, patient was unable to swallow water 03/11 AM, so no PO meds were given throughout the day yesterday. Provider made aware. Per family, patient eats pureed food with thickened liquids.? Plan: AUTOMOTIVE UPHOLSTERER support available remote only this date; in-person AUTOMOTIVE UPHOLSTERER to return 03/13 for in-person assessment/screening as appropriate, provide updated recommendations. Current Recommendations: - Continue with current diet modification(s), ie Solids Level 4 *Liquidized pureed, Level 3 Mod thickened liquids; Low sodium diet per chart review until AUTOMOTIVE UPHOLSTERER in-person assessment/screening. - Provide oral medications as tolerated with pureed texture; consult MD if patient continues inability to tolerate po meds. - If patient allows assist with oral care, may attempt trial of 1-3 ice chips for oral comfort. Please contact AUTOMOTIVE UPHOLSTERER if overt s/sx aspiration are present (eg, cough, throat clear, wet/gurgly vocal quality). - Recommend ongoing family/caregiver support and education, collaboration with Palliative Care. Francy Ramos MA [facility]-AUTOMOTIVE UPHOLSTERER Speech-Language Pathologist [place]#[phone] Coding
[2023-03-12] MEDS: diazePAM 10 MG/2 ML SYR 2 MG IVP (13:11)
[2023-03-12 13:32] LABS: VALPROIC ACID 48.5 ug/mL
--- NOTE | 2023-03-12 16:13 | PHA.REVIEW2 ---
Pharmacy Admission Review - Admission Clinical Review (Last Reviewed 03/10/23 @ 20:20 by Eligio Norman MD) New onset of congestive heart failure (Acute) Agitation (Acute) Dementia with behavioral disturbance (Acute) No Known Allergies Allergy (Unverified 03/10/23 17:24) Resuscitation Status DNR/DNI Height 5 ft 5 in Weight 82.8 kg - Renal Dosing Renal Dosing: BUN 23 mg/dL (7-18) H 03/12/23 06:02 Creatinine 1.2 mg/dL (0.70-1.30) 03/12/23 06:02 Medications needing adjustments: Reviewed List of meds needing interventions: eCrCl 52 ml/min, all orders appropriately dosed - Anticoagulation Anticoagulation: Hgb 10.1 g/dL (13.5-17.5) L 03/11/23 05:32 Hct 31.2 % (40.0-50.0) L 03/11/23 05:32 Plt Count 313 10^3/uL (130-400) 03/11/23 05:32 Creatinine 1.2 mg/dL (0.70-1.30) 03/12/23 06:02 Therapeutic Anticoagulation: Reviewed Medications: Apixaban - Opiate Usage Evaluate Pain Scale/Pains Meds: N/A - Relevant Labs Sodium 139 mmol/L (136-145) 03/12/23 06:02 Potassium 3.8 mmol/L (3.5-5.1) 03/12/23 06:02 Chloride 104 mmol/L (98-107) 03/12/23 06:02 Magnesium 1.8 mg/dL (1.8-2.4) 03/10/23 17:27 Electrolytes, C-Reactive P, ESR: Reviewed - DM Control DM Control: Glucose 136 mg/dL (74-106) H 03/12/23 06:02 DM Control: N/A - Cardiac Review Cardiac Review: Troponin I Cancelled 03/10/23 20:23 NT-Pro-B Natriuret Pep 832 pg/mL (<300) H 03/10/23 17:27 BP, HR, EF%: Reviewed - Qtc Review QTc: Reviewed If Elevated, List meds needing intervention: QTc 440 - IV to PO Switch IV Medications: Reviewed - Home Meds Home Med List reviewed: Reviewed Relevent Home Meds Not ordered & why?: all ordered but changes were made to his regimen today -- olanzapine was changed to ziprasidone - Current meds Current Medication Order Review: Reviewed (valproate level came back at 48.5, notified MD - maybe be increased or changed to IV short term; he has inconsistent oral intake (tabs have to be crushed and sprinkled over applesauce, drools out a significant portion) so he made not be getting full doses)
[2023-03-12] MEDS: diazePAM 10 MG/2 ML SYR IVP ×2 (16:25→23:48)
[2023-03-12] MEDS: Ziprasidone 20 MG VIAL IM (19:48)
[2023-03-12] MEDS: Divalproex 125 MG SPRINKLE 500 MG PO (19:49)
[2023-03-12] MEDS: Atorvastatin 40 MG TAB 80 MG PO (19:49)
[2023-03-12] MEDS: Normal Saline 10 ML VIAL IJ (23:49)
[2023-03-13] VITALS (23 sets, daily range): BP systolic 69–148; BP diastolic 30–70; PULSE 74–90; RESP 20–28; TEMP 36.6–37; O2SAT 88–95
[2023-03-13] MEDS: diazePAM 10 MG/2 ML SYR 4 MG IVP (04:28)
[2023-03-13] MEDS: diphenhydrAMINE 50 MG/ML VIAL IVP (05:55)
[2023-03-13] MEDS: Normal Saline Flush 10 ML SYR IVP ×2 (05:56→09:44)
--- NOTE | 2023-03-13 07:30 | RT.EKG_ITS ---
APPROVED REPORT Exam: Resting ECG Reason for Exam: QTC monitoring Patient Location: I HR:88 bpm ECG Measurements Heart Rate 88 AXIS VA 143 P 41 QRSd 97 QRS 10 QT 387 T -6 QTc 469 Conclusion Sinus rhythm...normal P axis, V-rate 50- 99 Left atrial enlargement...P, P'>60mS, <-0.15mV V1 Borderline T abnormalities, inferior leads...T flat/neg, II III aVF Artifact in lead(s) I,II,aVR,aVF,V1,V2
--- NOTE | 2023-03-13 08:18 | PDOC.CMPRO ---
Date of service: 03/13/23 Time of Service: 08:18 Care Management Progress Note Progress Note Text Progress Note Text: S/O:Jimi was lying in bed when CM met with him. His daughter Sujatha Jeffers visited several times today and Jimi appears calmer when she is present. Sujatha Jeffers informed CM that Jimi knew who she was today, which has not always been the case, and she was pleased by that fact. CM sent a referral to [facility] to see if they would be willing to admit him again for medication management. No response received yet.Medically, Jimi remains stable with no new issues identified. A PT evaluation is pending. A: Jimi is a 77 year old man admitted on 03/10/23 with agitation and anemia P: Jimi will likely be discharged home with no new services if he does not return to [facility]. He will follow up with his community providers and plan of care and transport with family. CM will follow and assess for ongoing discharge concerns.
[2023-03-13] MEDS: Gabapentin 100 MG CAP 200 MG PO (09:43)
[2023-03-13] MEDS: Aspirin 81 MG CHEW PO (09:43)
[2023-03-13] MEDS: Losartan 25 MG TAB PO (09:43)
[2023-03-13] MEDS: Divalproex 125 MG SPRINKLE 500 MG PO ×2 (09:43→19:27)
[2023-03-13] MEDS: Apixaban 5 MG TAB PO ×2 (09:43→19:27)
[2023-03-13] MEDS: amLODIPine 5 MG TAB PO (09:44)
[2023-03-13] MEDS: Polyethylene Glycol 3350 17 GM PACKET PO (09:46)
--- NOTE | 2023-03-13 09:48 | PGE_ITS ---
Date of Service Date of service: 03/13/23 Time of Service: 09:48 Assessment and Plan Assessment and plan (1) Dementia with behavioral disturbance: Status: Acute Assessment and plan: S/P 6 week admission at [facility]. Discharged on Zyprexa, Depakote and Trazadone. Apparently the current combination of Zyprexa Depakote and trazodone was not working for him. His daughter Aiden Branch indicated that he has had adverse reactions to Haldol which she felt made him more agitated. I told her were not going to use any more Haldol but I am going to continue on the Geodon 30 mg ni ghtly and add low dose Klonopin 0.25 mg po bid for anxiety. I have also increased his depakote to 500 mg bid. I will recheck levels tomorrow. Professional time spent interviewing and examining patient, discussion of goals of care with hospital team (care management, nursing and consulting professionals) was 30 minutes. (2) History of multiple strokes: Assessment and plan: Previous history. No evidence of acute CVA. However, I would consider rescanning his head in light of his worsening behavior. No CT was done on admission. Non-contrast CT head showed no acute abnormalities. continue ASA and apixaban and atorvastatin (3) Anemia: Status: Chronic Assessment and plan: Anemia: acute on chronic. patient on both ASA and DOAC though no bleeding identified at present Normal retic Stable. (4) History of alcoholism: Status: Acute Assessment and plan: will give him high dose thiamine trial, although if he has Wernicke's it is probably too late to treat. Subjective Subjective Interval history since last seen: patient had better night last night w/ the change to Geodon. This morning he is more alert, he is responsive and cooperating w/ his nurses. They are giving him his a.m. meds and feeding him. CLINICAL SOCIAL WORK AIDE recommends pureed solids and moderately thickened liquids. I spoke w/ his daughter, Aiden Branch, who has had him w/ her since October. She says that he was a former heavy alcohol user but none since he has been living w/ her. has placed referreal to [facility] for geriatric psychiatric inpatient stabilization. Exam Narrative Exam Narrative: Layton is more alert this morning and more cooperative with nursing although he requires frequent redirection. Speech is dysarthric but this is his baseline. He has right hemiparesis which also is his baseline. He does respond to simple commands such as grasping his left hand to my hand and shaking hands with me. He is following simple commands with nurses asked him to open his mouth and to swallow or double swallow with each bite. Lungs are clear to auscultation Heart is regular rate and rhythm Abdomen soft nondistended Neuro exam alert seems to be oriented to his name but not oriented to place time or circumstance. Still requires frequent redirection and he distracts rather easily. He has right hemiparesis but is able to raise his right arm and he is able to grasp with his right hand but much weaker than his left. He has normal strength and property assessment monitor in his left hand and arm. Normal movement of his left leg. Objective Last Vital Signs Temp 36.7 C 03/13/23 09:08 Pulse 90 03/13/23 09:08 Resp 20 03/13/23 09:08 BP 102/70 03/13/23 09:08 Pulse Ox 94 03/13/23 09:08 Laboratory Results - last 24 hr 03/12/23 13:10 Valproic Acid 48.5 Time Spent with Patient Time Spent with Patient: 25-34 minutes Time was spent: preparing to see the patient(eg.review tests), ordering medications,tests, procedures, referring, communicating with other health healthcare social worker, indepentently interpreting results, counseling the patient (Counseling his daughter Aiden Branch) and care coordination
[2023-03-13] MEDS: clonazePAM 0.5 MG TAB 0.25 MG PO ×2 (10:35→19:28)
--- NOTE | 2023-03-13 11:20 | PDOC.STREC ---
Date of service: 03/13/23 Time of Service: 17:00 Speech Therapy Recommendations Report ST Recommendations: JAVA J2EE APPLICATION DEVELOPER Communication / Non-Treatment Note Attempting to see patient for evaluation/recommendations multiple times this date, but each contact he was somnolant and not rousable. Current recommendations stand as follows: Current Recommendations: - Continue with current diet modification(s), ie Solids Level 4 *Liquidized pureed, Level 3?Mod thickened liquids;?Low sodium diet per chart review until JAVA J2EE APPLICATION DEVELOPER in-person assessment/screening. - Patient should be awake/alert, and fully upright for all PO intake including ice chips/meds. - Provide oral medications as tolerated with pureed texture; consult MD if patient continues inability to tolerate po meds. - If patient allows assist with oral care, may attempt trial of 1-3 ice chips for oral comfort. Please contact JAVA J2EE APPLICATION DEVELOPER if overt s/sx aspiration are present (eg, cough, throat clear, wet/gurgly vocal quality). - Recommend ongoing family/caregiver support and education, collaboration with Palliative Care. Coding
[2023-03-13] MEDS: Ziprasidone 20 MG VIAL 10 MG IM (11:21)
[2023-03-13] MEDS: Water,Injection,Sterile 10 ML VIAL (12:40)
[2023-03-13] MEDS: THIAMINE 500 MG in Normal Saline 100 ML 200 MG IVPB ×2 (12:40→19:27)
--- NOTE | 2023-03-13 16:22 | PT.INNT ---
PT Notes Visit Reasons: Agitation, CHF, Anemia Nurse Linh recommended holding off on PT eval at this time as patient is not safe to be mobilized out of bed. Patient has just been started on medication to minimize agitation and is not appropriate for PT. Will follow up with nurse and patient tomorrow morning to assess appropriateness for PT services, as ordered.
[2023-03-13] MEDS: Gabapentin 300 MG CAP PO (19:27)
[2023-03-13] MEDS: Atorvastatin 40 MG TAB 80 MG PO (19:27)
[2023-03-13] MEDS: Ziprasidone 20 MG VIAL 30 MG IM (19:28)
[2023-03-13] MEDS: Water,Injection,Sterile 10 ML VIAL IJ (19:28)
[2023-03-13] MEDS: Lactated Ringers 1,000 ML 75 ML IV (20:58)
[2023-03-14] VITALS (52 sets, daily range): BP systolic 85–163; BP diastolic 35–61; PULSE 74–112; RESP 24–37; TEMP 31–38.8; O2SAT 74–100
--- NOTE | 2023-03-14 02:09 | NUR.NOTE ---
spoke with Dr Garcia about pt gurgling and suctioning thick secretions. pt to be kept NPO. aware of pts condition.
[2023-03-14] MEDS: diazePAM 10 MG/2 ML SYR IVP (02:35)
[2023-03-14] MEDS: THIAMINE 500 MG in Normal Saline 100 ML 200 MG IVPB ×2 (03:22→13:22)
--- NOTE | 2023-03-14 04:24 | NUR.NOTE ---
repositioned and oral care done numerous times this shift. restraints reapplied as pt pulling at IV, extremely restless. orally suctioned orally many timesfor thick frothy secritions
--- NOTE | 2023-03-14 06:15 | DI.RAD_ITS ---
Exam(s) XR PORTABLE CHEST AP EXAM: XR PORTABLE CHEST AP CLINICAL HISTORY: r/o aspiration pnm TECHNIQUE: 2D digital imaging was performed. COMPARISON: CR,XR XR CHEST 1V IN DI DEPT from 10/27/[address] CHEST/ABD/PEL W from 10/30/2022 CR,XR XR PORTABLE CHEST AP from 03/10/2023 FINDINGS: Exam is limited by poor pulmonary inflation. LUNGS: There are increased interstitial markings throughout, similar to prior which may represent und erlying chronic fibrotic changes. Question of superimposed densities at the lung bases, greater on t he left which could could represent pneumonia versus atelectasis. Vascular prominence similar to frank or exam. No pleural abnormality seen. HEART: Normal size. AORTA: Calcified. BONES: Unremarkable for age. Soft tissues: Unremarkable. IMPRESSION: Limited exam. Question of bibasilar infiltrates versus atelectasis. Mild pulmonary edema also not e xcluded. DATA REPOSITORY: RADIATION DOSE DELIVERED:
[2023-03-14 07:02] LABS: VALPROIC ACID 62.4 ug/mL
--- NOTE | 2023-03-14 08:26 | DI.VRAD_ITS ---
PROCEDURE INFORMATION: Exam: XR Chest Exam date and time: 03/14/2023 6:51 AM Age: 77 years old Clinical indication: Other: R/O aspiration TECHNIQUE: Imaging protocol: Radiologic exam of the chest. Views: 1 view. COMPARISON: CR XR PORTABLE CHEST AP 03/10/2023 6:12 PM FINDINGS: Lungs: Pulmonary vascular congestion. Increased bibasilar pulmonary opacities. Pleural spaces: No large pleural effusion seen. Heart/Mediastinum: No cardiomegaly. Vasculature: Aortic calcifications. Bones/joints: Grossly unremarkable. IMPRESSION: 1. Pulmonary vascular congestion. 2. Increased bibasilar pulmonary opacities could reflect atelectasis, edema, or infection. Follow-up as clinically warranted. Dictated and Authenticated by: Olga Walker MD. Ordering:SHON Piña MD
[2023-03-14] MEDS: Normal Saline Flush 10 ML SYR IVP ×3 (08:53→22:48)
[2023-03-14 09:22] LABS: BE (Venous) -2 mmol/L (-2-3); HCO3 (Venous) 24 mmol/L (23-28); O2 Sat (Venous) 47 %; TCO2 (Venous) 22 mmol/L (24-29); pCO2 (Venous) 42 mmHg (41-51); pH (Venous) 7.36 (7.31-7.41); pO2 (Venous) 28 mmHg
--- NOTE | 2023-03-14 09:25 | PDOC.CMPRO ---
Date of service: 03/14/23 Time of Service: 09:25 Care Management Progress Note Progress Note Text Progress Note Text: S/O:Jimi was lying in bed when CM met with him. He was asleep and CM did not wake him as he has been agitated and is heavily sedated. Last evening Jimi apparently aspirated and this morning he developed a fever and respiratory distress with hypoxia. He is now on oxygen via high flow nasal cannula. The provider discussed the events of last night and this morning with Sujatha Jeffers and she made the decision to transition Jimi to comfort measures. She did not want to pursue placement of a feeding tube for nutrition. CM received communication from [facility] this morning. They were prepared to readmit Jimi on Saturday, however, given recent events, CM declined the bed offer after consulting with Sujatha Jeffers. A: Jimi is a 77 year old man admitted on 03/10/23 with agitation and anemia P: Jimi will likely be discharged home with no new services if he does not return to [facility]. He will follow up with his community providers and plan of care and transport with family. CM will follow and assess for ongoing discharge concerns.
--- NOTE | 2023-03-14 09:44 | PGE_ITS ---
Date of Service Date of service: 03/14/23 Time of Service: 09:44 Assessment and Plan Assessment and plan (1) Acute respiratory failure with hypoxia: Status: Acute Assessment and plan: secondary to dysphagia and aspiration. keep NPO. provide iv hydration, treat empirically w/ Unasyn for aspiration pneumonitis (although often the initial pneumonitis is more chemical pnuemonitis rather than bacterial). Transition to comfort measures as noted below under #3 Dysphagia plans. Once CRUSHED STONE GRADER will dc all meds except for those for comfort measures and will dc monitors and labs. (2) Aspiration into lower respiratory tract: Status: Acute Assessment and plan: see #3 Dysphagia below. (3) Dysphagia: Status: Acute Assessment and plan: combination of his residual CVA deficits as well as his cognitive problems from his dementia and delirium. In the setting of his recent aspiration last night, he will be kept NPO. I discussed w/ his daughter Aiden Branch, that he will need a feeding tube to provide nutrition and medications. She indicated to me that he would not want that and that he has suffered quite a bit over the last few years and she does not want to see him suffer any longer. As such I have elected not to upgrade his status to MICU transfer but will reconsult Palliative care to assist w/ CRUSHED STONE GRADER measures. (4) Dementia with behavioral disturbance: Status: Acute Assessment and plan: S/P 6 week admission at [facility]. Discharged on Zyprexa, Depakote and Trazadone. Patient changed to Geodon which seemed to help yesterday. However, this a.m. is over sedated probably from combo of klonopin and prn valium. I have ordered Romazicon to reverse the benzodiazepines but family is wanting comfort measures at this point. (5) History of multiple strokes: Assessment and plan: Previous history. No evidence of acute CVA. However, I would consider rescanning his head in light of his worsening behavior. No CT was done on admission. Non-contrast CT head showed no acute abnormalities. continue ASA and apixaban and atorvastatin I will stop apixaban, atorvastatin and asa once he is on CRUSHED STONE GRADER (6) Anemia: Status: Chronic Assessment and plan: Anemia: acute on chronic. patient on both ASA and DOAC though no bleeding identified at present Normal retic Stable. (7) History of alcoholism: Status: Acute Assessment and plan: will give him high dose thiamine trial, although if he has Wernicke's it is probably too late to treat. Subjective Subjective Interval history since last seen: Patient restless and agitated last night required repeated doses of Valium. Now this morning he is poorly arousable even to noxious stimulation. Patient was given a dose of Romazicon with improvement in his arousability. Patient reportedly had an aspiration event last night. He is now having problems with hypoxemia requiring high flow nasal cannula. He is a DNR/DNI and because of his decreased responsiveness he was not a candidate for BiPAP. Oxygenation has been stabilized with high flow nasal cannula. Patient is now n.p.o. and started on empiric antibiotics for aspiration pneumonitis. Exam Narrative Exam Narrative: Elderly male who initially was completely obtunded but became more arouseable after a single dose of Romazicon 0.2 mg. However, he has since returned to an obtunded state He has sonorous respirations LUngs: course bilateral rhonchi Heart: RRR Abdomen: obese, soft, nondistended Extremities: no cyanosis or edema With noxious stimulation he will withdraw his left arm or left leg and grimace but does not open his eyes, nor does he follow commands even to his daughter's voice Objective Last Vital Signs Temp 37.4 C 03/14/23 07:00 Pulse 103 H 03/14/23 09:05 Resp 24 03/14/23 09:30 BP 109/54 L 03/14/23 09:05 Pulse Ox 95 03/14/23 09:30 Laboratory Results - last 24 hr 03/14/23 03/14/23 05:45 09:20 VBG pH 7.36 VBG pCO2 42 VBG pO2 28 VBG HCO3 24 VBG Total CO2 22 L VBG O2 Saturation 47 VBG Base Excess -2 Valproic Acid 62.4 Time Spent with Patient Time Spent with Patient: 35-49 minutes Time was spent: preparing to see the patient(eg.review tests), referring, communicating with other health healthcare educator, indepentently interpreting results, counseling the patient (counseling his daughter) and care coordination
[2023-03-14] MEDS: Normal Saline 500 ML 30 ML IV (10:26)
[2023-03-14] MEDS: AMPICILLIN/SULBACTAM 3 GM in Normal Saline 100 ML IVPB (10:26)
--- NOTE | 2023-03-14 13:00 | PT.INIE ---
PT Notes Visit Reasons: Agitation, CHF, Anemia Patient highly sedated and unable to arouse. Not appropriate for PT at this time.
--- NOTE | 2023-03-14 13:40 | PT.INNT ---
PT Notes Visit Reasons: Agitation, CHF, Anemia Patient converting to comfort measures in a day or two. Not appropriate for PT services at this time.
[2023-03-14] MEDS: Water,Injection,Sterile 10 ML VIAL (13:55)
[2023-03-14] MEDS: LORazepam 2 MG/ML VIAL 1 MG IVP (14:07)
[2023-03-14] MEDS: Ziprasidone 20 MG VIAL 10 MG IM (14:07)
[2023-03-14] MEDS: MORPHine 2 MG/ML SYR 1 MG IVP (14:56)
[2023-03-14] MEDS: ACETAMINOPHEN 1,000 MG/100 ML BTL 400 MG IVPB (15:55)
[2023-03-14] MEDS: Scopolamine 1 MG/3 DAYS PATCH TD (16:04)
[2023-03-14] MEDS: LORazepam 2 MG/ML VIAL IV/SC ×6 (16:35→23:50)
--- NOTE | 2023-03-14 16:57 | CHAPLAIN ---
Jimi had an aspiration episode last night and was made NPO. After talking with his daughter, Adriane Jeffers, the hospitalist changed Jimi to CM status. Adriane Jeffers has been here much of the day. Jimi has been alternating between restless somulent today. He hasn't spoken, but at times opened his eyes when Adriane Jeffers rubbed his chest. Dr. Leiva from visited this afternoon. Dr. Leiva has been doing home visits for Jimi for several months. Adriane Jeffers has been caring for her dad for five years. Some of that time he lived with his son, and then with Adriane Jeffers. Her mom of a head injury and her grandmother this past Carlos time. Adriane Jeffers said that Jimi was someone who always liked to be moving and had a few jobs at a time. He worked for [employer] and the [employer] before moving to [place]. I let Adriane Jeffers know that whiskey filterer support is available 08/04. She returned [facility] with her boyfriend for support. She said her brother won't be visiting.
[2023-03-14] MEDS: Glycopyrrolate 0.2 MG/1 ML VIAL IVP ×3 (19:18→23:10)
--- NOTE | 2023-03-15 07:22 | PCPN_ITS ---
Date of service: 03/14/23 Time of Service: 14:30 Assessment and Plan Assessment and plan (1) Aspiration into lower respiratory tract: Status: Acute (2) Acute respiratory failure with hypoxia: Status: Acute (3) Dementia with behavioral disturbance: Status: Acute Subjective Subjective Interval history since last seen: Updated clinical course as outlined in hospitalist note: Patient with aspiration event last night and now obtunded. Patient has been transition to comfort measures only. I met at patient's bedside with daughter Aiden Jeffers. Also coordinated care with ICU nursing staff and hospitalist. Reviewed history with daughter. November 2022 COLST form stated that patient was DNR/DNI and that he at that point wanted comfort measures only. We reviewed, discussed and confirmed these difficult decisions. Reviewed clinical history. Supportive counseling with daughter. Daughter has support from boyfriend Go, neighbors who have been very helpful with caring for patient since he moved in with daughter. Resaw Carriage Operator has been visiting throughout patient's hospital stay. Total of 45 minutes spent today. Palliative care will continue to follow. Objective Last Vital Signs Temp 37.8 C H 03/14/23 17:00 Pulse 108 H 03/14/23 11:44 Resp 28 H 03/14/23 11:44 BP 119/61 03/14/23 11:44 Pulse Ox 91 L 03/14/23 14:05 Laboratory Results - last 24 hr 03/14/23 09:20 VBG pH 7.36 VBG pCO2 42 VBG pO2 28 VBG HCO3 24 VBG Total CO2 22 L VBG O2 Saturation 47 VBG Base Excess -2
--- NOTE | 2023-03-15 07:24 | EXPE_ITS ---
Date of service: 03/15/23 Time of Service: 07:24 Discharge Plan Disposition Patient Disposition: Discharge Details Reason For Visit: Agitation, CHF, Anemia Admit Date/Time: 03/10/23 20:30 Admit Provider: Eligio Norman Attending Provider: Eligio Norman Primary Care Provider: Go Camacho Hospital Course Hospital Course: 77-year-old male with medical history of vascular dementia, aortic dissection, CVA w/ residual right hemiparesis and dysphagia, COPD and CHF, cholesterol, hypertension, alcoholism (abstinent since Oct 2022) who presents to the ER with a chief complaint of shortness of breath and increased pedal edema and worsening agitation. Patient was discharged from [facility], geriatric psychiatry facility, one day prior to this admission after 6 weeks stay. Workup in the ED included labs, CXR and EKG. CXR suggested pulmonary edema and pulmonary vascular congestion, EKG demonstrated sinus rhythm w/out any ischemic changes. Troponin I was normal. Pro-BNP was elevated at 832. CBC anemia w/ Hb 8.98 HCT 27.8 (decreased from prior levels of anemia Hb 11.7 gm in 11/29/22), repeat CBC was done the next day on 03/11 which was better at 10.1 gm and more consistent w/ his baseline. CMP unremarkable, normal B12, folate and TSH. Patient was treated w/ lasix iv push while in the ED. He became violently agitated while in the ED and required 4 point restraints and sedation w/ Ativan, Haldol and Benadry. He was admitted to ICU as med/surg overflow d/t patient requiring one to one care d/t his agitation. He was resumed on his medications that had been prescribed at [facility] including his Zyprexa, Aricept, Depakote, Desyrel, as well as his cardiac meds of amlodipine, apixaban, ASA, atorvastatin, losartan. He continued to have agitation and exhibited dysphagia. Due to his dysphagia, his Zyprexa had to be given IM and he had recurrent flare ups of periods of agitation requiring sedation w/ haldol and ativan. Per my discussion w/ his daughter, I learned that he has had adverse response in the past to haldol in which his agitation will worsen rather than calming him down. As his regimen that he had been on from [facility] was not working, I discontinued his Zyprexa, and started him on Geodon which seemed to transiently improve his behavior and the day before his demise, he seemed to be more alert and cooperative but still not oriented and would have periods of increased agitation. He required frequent benzodiazepine (ativan at first then valium) to calm him down. Because of his dysphagia, CEMENT MASON HELPER consult was requested, however, due his delirium and agitation, need for sedation, CEMENT MASON HELPER could not complete bedside evaluation but made the best recommendations possible w/out formal swallowing evalution. During his periods of alertness attempts were made to give him pureed diet w/ moderately thickened liquids. On the night before his demise, he had an aspiraton event, was made NPO but his oxygen requirements increased to the point he required [facility] oxygen thisdid suppport his oxygen needs. Oropharyngeal suction was used to help control his secretions. Benzodiazepine sedation was discontinued and patient was given multiple doses of Romazicon to reverse the effects of his benzodiazepines. Repeat CXR was performed and in addition to his interstital densities he had new bibasilar infiltrates consistent w/ pneumonia. Patietn was begun on Unasyn for his pneumonia. Workup for CHF was att empted but echocardiogram could not be completed d/t his agitation. I had met w/ his daughter on multiple occasions and per my discussion w/ her, she expressed that her father has suffered w/ his dementia and dysphagia from his strokes long enough and she did not want to see him suffer. I indicated to her that his acute event is potentially treatable but he may need intubation and mechanical ventilation and eventually a PEG tube for nutritional support and for a route of medicatiion administration. She indicated to me that he would never want a feeding tube and would not want to be put on a ventilator. Palliative care also was consulted and met w/ his daughter as well. It was agreed by the daughter, myself and Dr. Leiva from Palliative care, that MAGAZINE HAND status was indicated. Patient was started on low dose morphine drip for control of dyspnea and pain and ativan prn was ordered for agitation and an antisialogogue was ordered for his secretions. Patient at 00:58 am on 03/14/2023 and was pronounced at 01:03 am by Amanda Cardona and Dr. Rosenbaum, assistant branch manager was notified of patient's at 01:10. Discharge Data Cause of : Respiratory failure with hypoxia Discharge Date/Time-TO BE ENTERED AT DEPARTURE: 03/15/23 01:03 Discharge Sum: Prov Provider Primary care physician: Dr. Go Camacho Admitting clinician: Eligio Norman Attending physician on admission: Micah Ferro Consults: 03/11/23 08:26 Palliative Care Consult [CONS] Routine Consultation Status:: Contact made by MD Clarification:: Manage/follow per spec. Reason for consult:: Goals of care Pronouncing clinician: Amanda Cardona Discharge Sum: Diag PCOD Cause of : Aspiration pneumonia Contributing Factors (1) Acute respiratory failure with hypoxia: (2) Aspiration into lower respiratory tract: (3) Dysphagia: (4) Dementia with behavioral disturbance: (5) History of multiple strokes: (6) Anemia: (7) History of alcoholism: (8) New onset of congestive heart failure: Discharge Sum: Summary Summary Details: see hospital course as outlined above. Additional Data Confirmation of as documented by pronouncing clinician: no pulse, no respirations and no heart sounds Family: at bedside Attending/PCP notified?: Yes Attending Physician: Eligio Wren Was code activated?: No Autopsy requested?: No Organ bank notified?: No Advance directives: Yes Hospice patient?: No
== END 2023-03-15 01:03 | disposition expired | DRG 884 ==
LOC: ER 23:25 → ICU 23:51
PROVIDERS: Family Medicine; Internal Medicine; Admitting Provider General Practice; Emergency Provider Registered Nurse Emergency; PCP Family Medicine; Visit Provider General Practice
DX: F03.911 Unspecified dementia, unspecified severity, with agitation (principal); I71.02 Dissection of abdominal aorta; J96.01 Acute respiratory failure with hypoxia; J69.0 Pneumonitis due to inhalation of food and vomit; F05 Delirium due to known physiological condition; Z79.899 Other long term (current) drug therapy; D64.9 Anemia, unspecified; Z79.82 Long term (current) use of aspirin; Z66 Do not resuscitate; Z79.01 Long term (current) use of anticoagulants; E53.8 Deficiency of other specified B group vitamins; E03.9 Hypothyroidism, unspecified; I70.0 Atherosclerosis of aorta; I50.9 Heart failure, unspecified; Z78.1 Physical restraint status; F10.21 Alcohol dependence, in remission; Z51.5 Encounter for palliative care; I69.391 Dysphagia following cerebral infarction
CPT/HCPCS: 36415; 80048; 80053; 80307; 82805; 85027; 93005; 96374; 96375; 96376; 99285; 70450; 71045; 80164; 81003; 81015; 82607; 82746; 83735; 83880; 84443; 84484; 85025; 85045; 93010; 99222; 99232; 99233; 99238; J0131; J0295; J1200; J1630; J1941; J2060; J2270; J3360; J3486